=== PATIENT | male | born 1955 | race Caucasian/White ===

== ENCOUNTER 2016-08-15 12:44 | Inpatient (IN) | payer SELFPAY ==
--- NOTE | 2016-08-15 13:39 | ER Document Report ---
ED Medical Screen (RME) - General Chief Complaint: Shortness Of Breath Stated Complaint: SHORTNESS OF BREATH, LEG PAIN Time Seen by Provider: 08/15/16 13:38 Mode of Arrival: Wheelchair Information source: Patient TRAVEL OUTSIDE OF THE U[place] IN LAST 30 DAYS: No - HPI Patient complains to provider of: BRAY, edema Notes: 08/15/16 13:39 This 61-year-old male who presents to the emergency room complaining of dyspnea on exertion with bilateral lower extremity swelling that is worsened over the past 3-4 weeks, he denies chest pain Past Medical History Renal/ Medical History: Denies: Hx Peritoneal Dialysis Physical Exam - Vital signs Vitals: Temp Pulse Resp BP Pulse Ox 97.8 F 56 L 30 H 164/99 H 97 08/15/16 13:36 08/15/16 13:36 08/15/16 13:36 08/15/16 13:36 08/15/16 13:36 Course - Vital Signs Vital signs: Temp Pulse Resp BP Pulse Ox 97.8 F 56 L 30 H 164/99 H 97 08/15/16 13:36 08/15/16 13:36 08/15/16 13:36 08/15/16 13:36 08/15/16 13:36
[2016-08-15 15:01] LABS: ABSOLUTE BASOPHILS # (AUTO) 0.2 10^3/uL (0.0-0.2); ABSOLUTE EOSINOPHILS # (AUTO) 0.4 10^3/uL (0.0-0.6); ABSOLUTE LYMPHOCYTES (AUTO) 2.4 10^3/uL (0.5-4.7); ABSOLUTE MONOCYTES (AUTO) 1.4 10^3/uL (0.1-1.4); ABSOLUTE NEUT (AUTO) 10.1 10^3/uL (1.7-8.2); BASOPHILS % (AUTO) 1.3 % (0-2); EOSINOPHILS % (AUTO) 2.8 % (0-6); HEMATOCRIT 42.8 % (37.9-51.0); HEMOGLOBIN 14.2 g/dL (13.5-17.0); HGB HCT DIFFERENCE -0.2; LYMPHOCYTES % (AUTO) 16.8 % (13-45); MEAN CORPUSCULAR HGB CONC 33.1 g/dL (32.0-36.0); MEAN CORPUSCULAR VOLUME 85 fl (80-97); MONOCYTES % (AUTO) 9.8 % (3-13); RED BLOOD COUNT 5.05 10^6/uL (4.35-5.55); RED CELL DISTRIBUTION WIDTH 15.3 % (11.5-14.0); SEGMENTED NEUTROPHILS % (AUTO) 69.3 % (42-78); WHITE BLOOD COUNT 14.6 10^3/uL (4.0-10.5)
--- NOTE | 2016-08-15 15:13 | RADIOLOGY REPORT (SQ) ---
EXAM DESCRIPTION: CHEST PA/LAT COMPLETED DATE/TIME: 08/15/2016 3:00 pm REASON FOR STUDY: BRAY COMPARISON: None. EXAM PARAMETERS: NUMBER OF VIEWS: two views TECHNIQUE: Digital Frontal and Lateral radiographic views of the chest acquired. RADIATION DOSE: NA LIMITATIONS: none FINDINGS: LUNGS AND PLEURA: No opacities, masses or pneumothorax. No pleural effusion. MEDIASTINUM AND HILAR STRUCTURES: No masses or contour abnormalities. HEART AND VASCULAR STRUCTURES: Cardiomegaly with pulmonary vascular congestion. BONES: No acute findings. HARDWARE: None in the chest. OTHER: No other significant finding. IMPRESSION: Cardiomegaly with pulmonary vascular congestion but no mario CHF. TECHNICAL DOCUMENTATION: JOB ID: [id number] [employer]- All Rights Reserved
[2016-08-15 15:24] LABS: ALANINE AMINOTRANSFERASE 32 U/L (21-72); ALBUMIN 3.7 g/dL (3.5-5.0); ALKALINE PHOSPHATASE 93 U/L (38-126); ANION GAP 14 (5-19); ASPARTATE AMINO TRANSFERASE 28 U/L (17-59); BILIRUBIN,DIRECT 0.4 mg/dL (0.0-0.4); BILIRUBIN,TOTAL 0.9 mg/dL (0.2-1.3); BLOOD UREA NITROGEN 26 mg/dL (7-20); CARBON DIOXIDE 29 mmol/L (22-30); CHLORIDE 101 mmol/L (98-107); CREATINE KINASE 94 U/L (55-170); CREATININE RESULT 1.17 mg/dL (0.52-1.25); GLUCOSE 87 mg/dL (75-110); POTASSIUM 4.3 mmol/L (3.6-5.0); SODIUM 143.9 mmol/L (137-145); TOTAL PROTEIN 6.8 g/dL (6.3-8.2)
[2016-08-15 15:35] LABS: CREATINE KINASE MB 1.21 ng/mL (<4.55); TROPONIN I 0.052 ng/mL
[2016-08-15] MEDS ORDERED: FUROSEMIDE INJ/PF 20 MG/2 ML SDV IV ONE (16:12)
[2016-08-15] MEDS ORDERED: NITROGLYCERIN 2% OINTMENT 1 GM PACKET TP ONE (16:13)
--- NOTE | 2016-08-15 16:18 | ER Document Report ---
ED General - General Mode of Arrival: Wheelchair Information source: Patient TRAVEL OUTSIDE OF THE U.S[place] IN LAST 30 DAYS: No - HPI Patient complains to provider of: Shortness of Breath Onset: Other - 1 month ago Associated symptoms: Other - see notes above <ROXANNE OLMSTEAD - Last Filed: 08/15/16 20:15> <THUYMAGALI CARLOS - Last Filed: 08/15/16 23:20> - General Chief Complaint: Shortness Of Breath Stated Complaint: SHORTNESS OF BREATH, LEG PAIN Time Seen by Provider: 08/15/16 13:38 Notes: 51-year-old male with history of atrial fibrillation, gout, bilateral lower extremity edema, and hypertension presents to the ED complaining of shortness of breath and cough which is exacerbated when laying down it has been present for the past 1 month. Patient is additionally complaining of bilateral lower extremity edema and chest congestion, but no chest pain. Patient reports that he has been having swelling issues for years now. Historically has been having problem with open blisters and seeping to the bilateral legs. 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 Patient is not on Xarelto stating that it is too expensive, so he takes low-dose aspirin. Patient is currently on losartan, torsemide, metoprolol, and amiodarone. Patient has a history of 2 ablations complaining that one lasted for 24 hours and another lasted for 1 week before his atrial fibrillation recurred. (ROXANNE OLMSTEAD) - Related Data Allergies/Adverse Reactions: No Known Allergies Allergy (Verified 08/15/16 16:00) Home Medications: Current Home Medications Amiodarone HCl [Cordarone 200 mg Tablet] 200 mg PO DAILY 08/15/16 [History] Colchicine [Colchicine 0.6 mg Tablet] 0.6 mg PO DAILY 08/15/16 [History] Fluoxetine HCl [Prozac] 40 mg PO DAILY 08/15/16 [History] Losartan Potassium [Cozaar 100 mg Tablet] 100 mg PO DAILY 08/15/16 [History] Metoprolol Succinate [Toprol Xl] 100 mg PO DAILY 08/15/16 [History] Rivaroxaban [Xarelto] 20 mg PO DAILY 08/15/16 [History] Tamsulosin HCl [Flomax 0.4 mg Cap.sr] 0.4 mg PO DAILY 08/15/16 [History] Torsemide 100 mg PO DAILY 08/15/16 [History] Past Medical History - General Information source: Patient - Social History Smoking Status: Unknown if Ever Smoked Chew tobacco use (# tins/day): No Frequency of alcohol use: None Drug Abuse: None Family History: Reviewed & Not Pertinent Patient has suicidal ideation: No Patient has homicidal ideation: No - Past Medical History Cardiac Medical History: Reports: Hx Atrial Fibrillation, Hx Congestive Heart Failure Pulmonary Medical History: Reports: Hx Pneumonia Renal/ Medical History: Denies: Hx Peritoneal Dialysis <ROXANNE OLMSTEAD - Last Filed: 08/15/16 20:15> Review of Systems - Review of Systems Constitutional: No symptoms reported EENT: No symptoms reported Cardiovascular: See HPI. denies: Chest pain - chest congestion Respiratory: See HPI, Cough, Short of breath Gastrointestinal: No symptoms reported Genitourinary: No symptoms reported Male Genitourinary: No symptoms reported Musculoskeletal: See HPI, Leg swelling - bilateral Skin: No symptoms reported Hematologic/Lymphatic: No symptoms reported Neurological/Psychological: No symptoms reported -: Yes All other systems reviewed and negative <ROXANNE OLMSTEAD - Last Filed: 08/15/16 20:15> Physical Exam - General General appearance: Alert In distress: None - HEENT Head: Normocephalic, Atraumatic Eyes: Normal Extraocular movements intact: Yes Pupils: PERRL - Respiratory Respiratory status: No: No respiratory distress - dyspnic Breath sounds: Other - crackles to the bilateral bases - Cardiovascular Rhythm: Regular Heart sounds: Normal auscultation - Abdominal Inspection: Normal Distension: No distension Tenderness: Nontender - Back Back: Normal - Extremities General upper extremity: Normal inspection, Normal ROM General lower extremity: Edema - 2+ pitting edema to the bilateral lower extremity, Normal ROM. No: Normal inspection - Neurological Neuro grossly intact: Yes Cognition: Normal Orientation: AAOx4 Robin Coma Scale Eye Opening: Spontaneous [place] Coma Scale Verbal: Oriented [place] Coma Scale Motor: Obeys Commands [place] Coma Scale Total: 15 Speech: Normal - Psychological Associated symptoms: Normal affect, Normal mood - Skin Skin Temperature: Warm Skin Moisture: Dry Skin Color: Normal <ROXANNE OLMSTEAD - Last Filed: 08/15/16 20:15> Course - Laboratory Result Diagrams: 08/15/16 14:35 08/15/16 14:35 - Consults Dr. Grover Time consulted: 16:13 <ROXANNE OLMSTEAD - Last Filed: 08/15/16 20:15> - Laboratory Result Diagrams: 08/15/16 14:35 08/15/16 14:35 <MAGALI DALEY - Last Filed: 08/15/16 23:20> - Re-evaluation Re-evalutation: 08/15/16 Patient is a 61-year-old male who comes in with difficulty breathing that has been increasing over the last few weeks. She has not seen a doctor in about a year and a half. Patient is a history of atrial fibrillation. Clinically, x- ray, and blood work is consistent with congestive heart failure. Patient will be given Lasix and nitroglycerin paste and admitted for further evaluation of his symptoms. Stable time of admission to the hospitalist service. (MAGALI DALEY) - Vital Signs Vital signs: Temp Pulse Resp BP Pulse Ox 98.5 F 63 18 138/90 H 94 08/15/16 18:50 08/15/16 20:00 08/15/16 17:13 08/15/16 18:50 08/15/16 18:50 - Laboratory Laboratory results interpreted by me: 08/15/16 08/15/16 08/15/16 14:35 14:35 14:35 WBC 14.6 H RDW 15.3 H Absolute Neutrophils 10.1 H BUN 26 H NT-Pro-B Natriuret Pep 4500 H - Consults Dr. Grover Reason for consultation: 08/15/16 16:13 Patient was discussed with Dr. Grover who agrees to admit the patient to telemetry for observation. (ROXANNE OLMSTEAD) Discharge <ROXANNE OLMSTEAD - Last Filed: 08/15/16 20:15> - Discharge Admitting Provider: Elliot Grover Unit Admitted: Telemetry <MAGALI DALEY - Last Filed: 08/15/16 23:20> - Discharge Clinical Impression: CHF exacerbation Qualifiers: Congestive heart failure type: unspecified congestive heart failure type Qualified Code(s): I50.9 - Heart failure, unspecified Dyspnea Qualifiers: Dyspnea type: dyspnea on exertion Qualified Code(s): R06.09 - Other forms of dyspnea Condition: Stable Disposition: ADMITTED INPATIENT Scribe Attestation: 08/15/16 23:20 I personally performed the services described in the documentation, reviewed and edited the documentation which was dictated to the scribe in my presence, and it accurately records my words and actions. (MAGALI DALEY) Scribe Documentation - Scribe Written by Scribe:: Kendra Medrano, 08/15/2016 1744 acting as scribe for :: Thuy <ROXANNE OLMSTEAD - Last Filed: 08/15/16 20:15>
[2016-08-15] MEDS ORDERED: GLUCAGON,HUMAN RECOMB 1 MG INJ IM PRN (17:11)
[2016-08-15] MEDS ORDERED: DEXTROSE 50%-WATER 25 GM/50 ML DISP.SYRIN IV PRN ×2 (17:11)
[2016-08-15] MEDS ORDERED: INSULIN LISPRO 100 UNIT/ML 3 ML VIAL SUBCUT PRN (17:11)
[2016-08-15] MEDS ORDERED: DEXTROSE 40% GEL 15 GM TUBE PO PRN ×2 (17:11)
[2016-08-15] MEDS ORDERED: BUMETANIDE INJ/PF 1 MG/4 ML SDV IV SCH (18:00)
[2016-08-15] MEDS ORDERED: BUMETANIDE INJ/PF 1 MG/4 ML SDV IV PRN (18:00)
[2016-08-15] MEDS ORDERED: POTASSIUM CHLORIDE 10 MEQ TABLET.SA PO ONE (18:00)
--- NOTE | 2016-08-15 18:52 | EKG REPORT ---
SEVERITY:- ABNORMAL ECG - ATRIAL FLUTTER, A-RATE 223 INCOMPLETE LEFT BUNDLE BRANCH BLOCK ST DEPRESSION, CONSIDER ISCHEMIA, INF LEADS : Confirmed by: Yun Jerez 15-Aug-2016 18:50:33
--- NOTE | 2016-08-15 19:34 | HISTORY AND PHYSICAL E ---
History and Physical NAME: JANICE LION : 1955 AGE: 61Y ADMITTED: 08/15/2016 ROOM: 535 PRIMARY CARE PROVIDER: Not established. Benefit Specialist: In [place]. CHIEF COMPLAINT: Shortness of breath and swelling. HISTORY OF PRESENT ILLNESS: The patient is a 61-year-old male with a past medical history of congestive heart failure with unknown ejection fraction and atrial fibrillation. The patient presented to the emergency department with a chief complaint of shortness of breath. According to the patient, he had had significant shortness of breath that had been ever increasing over the past month. The patient states that he was first diagnosed with congestive heart failure back in 2013 and was also found to have atrial fibrillation. The patient states that he was converted on 2 separate occasions that were not successful. The patient also underwent an ablation which was successful. Subsequently the patient has been managed with beta-florencia and amiodarone. The patient is uncertain of his EF. He also states that he has not had a heart catheterization, although it is to be noted the patient is a rather poor historian. The patient has also a prescription for ARB. According to the patient, he takes all his medications including his diuretic except for Xarelto which he was given for anticoagulation, but he does not take the Xarelto given the cost. The patient states that he has lost his insurance and since that time has not had any followup nor has he been able to take his anticoagulation. The patient states that his symptoms have been getting worse over quite a period of time; however, he is unable to see a provider given that he does not have any insurance and, thus, came to the emergency department. Upon presentation to the emergency department, the patient was found to be dyspneic with evidence of anasarca. The patient also had a mild white count. His BNP was 4500. Blood pressure was 164/99 but he was acutely tachypneic. The patient does admit to paroxysmal nocturnal dyspnea and a dry hacky cough. The patient denies any nausea, vomiting or diarrhea, dizziness, chest pain. He denies any heart palpitations despite of the chronic a-fib but does not voice any other concerns at this time. PAST MEDICAL HISTORY: 1. Chronic atrial fibrillation. 2. Congestive heart failure of uncertain etiology and uncertain EF. The patient does deny knowledge of coronary artery disease. 3. Morbid obesity with BMI of 51. 4. Hypertension. PAST SURGICAL HISTORY: 1. Ablation. 2. Tonsillectomy. 3. Femur fracture repair. 4. Ventral wall hernia repair. ALLERGIES: No known drug allergies. HOME MEDICATIONS: 1. Amiodarone 200 mg p.o. daily. 2. Colchicine 0.06 mg p.o. daily. 3. Prozac 40 mg p.o. daily. 4. Cozaar 100 mg p.o. daily. 6. Xarelto 20 mg p.o. daily. 7. Flomax 0.4 mg p.o. daily. 8. Torsemide 100 mg p.o. daily. SOCIAL HISTORY: The patient currently resides at home. He has recently moved to the area from [place]. The patient denies any history of tobacco use, no history of alcohol or illicit drug use. FAMILY MEDICAL HISTORY: The patient's mother is . She from a CVA. The patient's father is also from emphysema. The patient does have a sister who is healthy. The patient also has a daughter who is healthy named Lc Badillo who is his surrogate decision maker. REVIEW OF SYSTEMS: CONSTITUTIONAL: The patient denies any fevers or chills, no loss of appetite. Positive for weakness. Denies any dizziness. INTEGUMENTARY: The patient denies any diaphoresis, rash or bruising. HEENT: Denies any vision or hearing loss, nasal drainage, sore throat, or headache. CARDIOVASCULAR: Denies any heart palpitations. Positive for chest pain and edema. RESPIRATORY: Denies any cough, sputum production or hemoptysis. GASTROINTESTINAL: Denies any nausea, vomiting, diarrhea, abdominal pain, bloating, hematemesis, constipation, melena or hematochezia. No epigastric pain. GENITOURINARY: Denies any hematuria, pyuria or dysuria. MUSCULOSKELETAL: The patient does have [id number] leg pain neuropathy. NEUROLOGIC: Denies any seizures, tremors or loss of consciousness. HEMATOLOGICAL: Denies any mario bleeding or easy bruising. ENDOCRINE: Denies any recent weight changes. PSYCHIATRIC: Denies suicidal or homicidal ideations. The rest of the review of the other organ systems is negative. PHYSICAL EXAMINATION: GENERAL: On examination, the patient is a well-developed, morbidly obese 61-year-old male who is awake, alert and oriented to person, place, time and situation. He is verbal and conversational and does not appear to be in any acute distress. VITAL SIGNS: Temperature 98.4, pulse 57, respirations 18, blood pressure 164/80, oxygen saturation is 92% on room air. SKIN: Warm and dry. No rash. He is not diaphoretic. HEENT: Pupils are equal, round, and reactive to light and accommodation. Conjunctivae are pink. The patient does have JVP to the level of the right ear. Sclerae are not icteric. There are no mouth lesions. Tongue is midline. NECK: Supple. No palpable lymphadenopathy or thyromegaly. CARDIOVASCULAR: Heart is irregularly irregular. There is no rub. CHEST: Diminished. Bilateral basal crackles are noted. Symmetrical, currently unlabored. ABDOMEN: Obese, soft, distended. No area of focal tenderness. Unable to palpate for organomegaly given the patient's body habitus but evident of third-space fluid. BACK: No CVA tenderness or sacral edema. EXTREMITIES: No clubbing or cyanosis. The patient does have evidence of chronic edema with +3 to 4 nonpitting edema consistent with anasarca. No peripheral signs of embolization. Faint pedal pulses noted bilaterally. PSYCHIATRIC: Appropriate affect. Pleasant mood. DIAGNOSTICS: Labs are as follows: Hematology obtained on 08/15/2016: WBC 14.6, hemoglobin 14.2, hematocrit 42.8, platelet count is 324,000. Chemistry obtained on 08/15/2016: Sodium 143, potassium 4.3, chloride 101, carbon dioxide 29, BUN 26, creatinine 1.17, glucose 87, calcium 5.4, calcium 9.0, bilirubin 9.0, AST 20, ALT 32, alkaline phosphatase 93, CK 94, CK-MB 1.21, troponin 0.025. BNP is 4500, total protein 6.8, albumin 3.7. EKG obtained on 08/15/2016 reveals a-flutter. Chest x-ray obtained on 08/15/2016 reveals cardiomegaly with pulmonary vascular congestion. IMPRESSION AND PLAN: 1. Acute congestive heart failure exacerbation. Unable to further clarify at this time, as there is no echocardiogram for comparison and unknown EF. Will obtain echocardiogram as well as will diurese the patient. Given his diuretic resistance, will start the patient on Bumex and replace potassium and follow. Will repeat chemistries in the a.m. Will utilize DENYS hose and monitor the patient's symptoms accordingly. 2. Chronic atrial fibrillation. Will resume the patient's home medications. Monitor for bradycardia. Will resume the patient's anticoagulation and follow. 3. Hypertension. The patient's blood pressures are elevated at this time. Will apply nitro paste for now and follow. 4. Leukocytosis. Relatively mild and may be secondary to #1. No evidence of overt infection. Will follow. 5. Benign prostatic hyperplasia. Will resume the patient's Flomax. 6. Depression. Will continue the patient's home medications. 7. DVT prophylaxis. The patient will be resumed on his Xarelto. DISPOSITION: The patient is a FULL CODE. Pending patient's symptomatology and diagnostic findings, will reevaluate in the a.m. Will admit the patient to inpatient telemetry, as the patient's expected length of stay will surpass 2 midnights. Time spent on this admission including assessment, plan, physical examination, patient education and family meetings is 40 minutes. DICTATING PHYSICIAN: KARLA SNYDER NP [id number] PHY#: [id number] ID: [id number] JOB#: [id number] ACCT: [id number] cc:AIDEN BARRY M.D., MICHAEL NP > MTDD
[2016-08-15] MEDS: ACETAMINOPHEN 325 MG TABLET PO PRN (23:05)
[2016-08-16] MEDS ORDERED: AMLODIPINE BESYLATE 10 MG TABLET PO ONE (00:30)
[2016-08-16 05:34] LABS: ANION GAP 13 (5-19); BLOOD UREA NITROGEN 23 mg/dL (7-20); CALCIUM 8.8 mg/dL (8.4-10.2); CARBON DIOXIDE 30 mmol/L (22-30); CHLORIDE 102 mmol/L (98-107); GLUCOSE 95 mg/dL (75-110); MAGNESIUM 2.3 mg/dL (1.6-2.3); POTASSIUM 3.6 mmol/L (3.6-5.0); SODIUM 144.6 mmol/L (137-145)
[2016-08-16] MEDS: BUMETANIDE INJ/PF 1 MG/4 ML SDV IV SCH ×3 (05:42→18:49)
[2016-08-16] MEDS ORDERED: BUMETANIDE INJ/PF 1 MG/4 ML SDV IV SCH (06:00)
[2016-08-16] MEDS: LOSARTAN POTASSIUM 50 MG TABLET PO SCH (10:49)
[2016-08-16] MEDS: FLUOXETINE HCL 20 MG CAPSULE PO SCH (10:49)
[2016-08-16] MEDS: AMIODARONE HCL 200 MG TABLET PO SCH (10:49)
[2016-08-16] MEDS: RIVAROXABAN 10 MG TABLET PO SCH (10:50)
[2016-08-16] MEDS: METOPROLOL SUCCINATE 50 MG TAB.SR.24H PO SCH (10:50)
[2016-08-16] MEDS: TAMSULOSIN HCL 0.4 MG CAP.SR.24H PO SCH (10:50)
[2016-08-16] MEDS: COLCHICINE 0.6 MG TABLET PO SCH (10:50)
--- NOTE | 2016-08-16 16:20 | XCELERA REPORT ---
[address] [address] Transthoracic Echocardiogram Report Name: JANICE LION Age: 61 yrs Gender: Male : 1955 Patient Status: Inpatient Patient Location: 5\S\535\S\A Study Date: 08/16/2016 09:47 AM Height: 71 in Weight: 363 lb BSA: 2.7 m2 Procedure: A two-dimensional transthoracic echocardiogram with color flow and Doppler was performed. The study was technically difficult with many images being suboptimal in quality. Reason For Study: Anasarca History: Anasarca. Ordering Physician: KARLA SNYDER Performed By: Hazel Martino Interpretation Summary There is mild concentric left ventricular hypertrophy. LV EF is 35% Left ventricular systolic function is moderate to severely reduced. There is moderate to severe global hypokinesis of the left ventricle. The left atrium is severely dilated. There is no evidence of mitral valve prolapse. There is no vegetation seen on the mitral valve. There is no mitral valve stenosis. There is a mild to moderate amount of mitral regurgitation There is no aortic valve stenosis There is no LVOT obstruction. There is a mild amount of aortic regurgitation There is a mild amount of tricuspid regurgitation Moderate to severe Pulmonary Hypertension.RVSP is 57 to 62 mm of Hg , with RA mean of 15 to 20. The aortic root is normal size. The inferior vena cava appeared dilated and decreased < 50% with respiration (RAP 15-20 mmHg) There is no pericardial effusion. MMode/2D Measurements \T\ Calculations RVDd: 3.7 cm LVIDd: 7.1 cm FS: 21.0 % Ao root diam: 3.2 cm IVSd: 1.3 cm LVIDs: 5.6 cm EDV(Teich): 266.6 ml LVPWd: 1.3 cm ESV(Teich): 155.9 ml Ao root area: 8.0 cm2 EF(Teich): 41.5 % Doppler Measurements \T\ Calculations MV E max sy: MV dec slope: Ao V2 max: AI max sy: 145.6 cm/sec 158.2 cm/sec 334.4 cm/sec MV A max sy: 1060 cm/sec2 Ao max PG: AI max P.6 cm/sec MV dec time: 10.0 mmHg 44.7 mmHg MV E/A: 2.1 0.14 sec AI dec slope: 130.2 cm/sec2 AI P1/2t: 752.0 msec LV V1 max PG: PA V2 max: TR max sy: 4.9 mmHg 104.6 cm/sec 323.3 cm/sec LV V1 max: PA max PG: TR max P.6 cm/sec 4.4 mmHg 41.8 mmHg Left Ventricle The left ventricle is moderately dilated. There is mild concentric left ventricular hypertrophy. LV EF is 35%. Left ventricular systolic function is moderate to severely reduced. There is moderate to severe global hypokinesis of the left ventricle. There is no thrombus. There is no ventricular septal defect visualized. Right Ventricle The right ventricle is mild to moderately dilated. The right ventricle appears to be hypertrophied. The right ventricular systolic function is moderately reduced. Atria The right atrium is moderately dilated. The left atrium is severely dilated. The interatrial septum is intact with no evidence for an atrial septal defect. Mitral Valve There is no evidence of mitral valve prolapse. There is no vegetation seen on the mitral valve. There is no mitral valve stenosis. There is a mild to moderate amount of mitral regurgitation. Aortic Valve There is no aortic valvular vegetation. There is no aortic valve stenosis. There is no LVOT obstruction. There is a mild amount of aortic regurgitation. Tricuspid Valve There is no tricuspid stenosis. There is a mild amount of tricuspid regurgitation. Moderate to severe Pulmonary Hypertension.RVSP is 57 to 62 mm of Hg , with RA mean of 15 to 20. Pulmonic Valve There is no pulmonic valvular stenosis. There is no pulmonic valvular regurgitation. Great Vessels The aortic root is normal size. The inferior vena cava appeared dilated and decreased < 50% with respiration (RAP 15-20 mmHg). Effusions There is no pericardial effusion. : KARLA SNYDER > Jany Mendez
--- NOTE | 2016-08-16 16:48 | PROGRESS NOTE E ---
Progress Note NAME: JANICE LION : 1955 AGE: 61Y DATE: 08/16/2016 ROOM: 535 SUBJECTIVE: The patient is lying in bed. It was a surprise to see him lying flat this morning. He said that he was able to tolerate this. It appears the patient has diuresed well; however, he is disappointed that he has not had more urine output than what he has. I explained to the patient it would take a while before he would see it in his extremities given the massive amount of volume that his up. The patient denies any nausea, vomiting, diarrhea. No dizziness, chest pain. No fevers, chills. The patient has been afebrile. Blood pressures have been mildly elevated but overall in decent ranges. The patient does not voice any other concerns at this time. REVIEW OF SYSTEMS: The rest of the review of systems is negative. MEDICATIONS: Medications have been reviewed. OBJECTIVE: GENERAL: The patient is a 61-year-old male who is awake, alert and oriented to person, place, time, and situation. He is verbal, conversational, ambulatory, does not appear to be in any acute distress. VITAL SIGNS: As follows: Temperature is 98.1, pulse 62, respirations 20, blood pressure 127/61, oxygen saturation 96% on room air. SKIN: Warm and dry. No rash. Not diaphoretic. HEENT: Pupils equal, round, reactive to light and accommodation. Conjunctiva is pink. NECK: No JVD. CARDIOVASCULAR SYSTEM: Heart is regular. There is no murmur or rub. CHEST: Diminished, symmetrical, unlabored. ABDOMEN: Firm. No area of focal tenderness. EXTREMITIES: The patient does have evidence of chronic edema which is non-pitting and appears to have anasarca. PSYCHIATRIC: Appropriate affect. Pleasant mood. DIAGNOSTICS: Lab values are as follows: Hematology obtained on 08/15/2016; WBCs are 14.6, hemoglobin is 14.2, hematocrit is 42.8, platelet count is 324,000. Chemistry obtained 08/16/2016: Sodium is 144, potassium, chloride is 102, carbon dioxide 30, BUN 23, creatinine is 1.10, glucose 95, calcium is 8.8, magnesium is 2.3. IMPRESSION AND PLAN: 1. ACUTE CONGESTIVE HEART FAILURE. Unable to further elaborate at this time given there is no echocardiogram available yet. This will be obtained today. Will continue current diuretic as the patient is quite diuretic resistant and replace potassium, repeat chemistries, utilize DENYS hose, and follow. 2. CHRONIC ATRIAL FIBRILLATION. Home medications have been resumed. Monitor for bradycardia. The patient will have also resumed his anticoagulation. 3. HYPERTENSION. Blood pressures are slightly elevated but will continue meds for now. 4. LEUKOCYTOSIS, RELATIVELY MILD. Most likely secondary to number 1. No evidence of overt infection. 5. BENIGN PROSTATIC HYPERPLASIA. Continue Flomax. 6. DEPRESSION. Will continue home medications. DISPOSITION: The patient is a FULL CODE. Pending patient's symptomatology, diagnostic findings, will re-evaluate in the a.m. Time spent on this followup including assessment, plan, physical examination, patient education is 25 minutes. DICTATING PHYSICIAN: KARLA SNYDER NP [id number] PHY#: [id number] ID: [id number] JOB#: [id number] ACCT: [id number] cc:KARLA SNYDER NP > MTDD
[2016-08-16] MEDS: POTASSIUM CHLORIDE 10 MEQ TABLET.SA PO SCH (21:06)
[2016-08-17] MEDS: BUMETANIDE INJ/PF 1 MG/4 ML SDV IV SCH ×2 (06:15→11:57)
[2016-08-17] MEDS: RIVAROXABAN 10 MG TABLET PO SCH (10:43)
[2016-08-17] MEDS: FLUOXETINE HCL 20 MG CAPSULE PO SCH (10:43)
[2016-08-17] MEDS: TAMSULOSIN HCL 0.4 MG CAP.SR.24H PO SCH (10:43)
[2016-08-17] MEDS: POTASSIUM CHLORIDE 10 MEQ TABLET.SA PO SCH (10:43)
[2016-08-17] MEDS: LOSARTAN POTASSIUM 50 MG TABLET PO SCH (10:43)
[2016-08-17] MEDS: COLCHICINE 0.6 MG TABLET PO SCH (10:43)
[2016-08-17] MEDS: METOPROLOL SUCCINATE 50 MG TAB.SR.24H PO SCH (10:45)
[2016-08-17] MEDS: AMIODARONE HCL 200 MG TABLET PO SCH (10:45)
[2016-08-17 12:23] LABS: ANION GAP 13 (5-19); BLOOD UREA NITROGEN 24 mg/dL (7-20); CALCIUM 9.1 mg/dL (8.4-10.2); CARBON DIOXIDE 31 mmol/L (22-30); CHLORIDE 100 mmol/L (98-107); CREATININE RESULT 1.23 mg/dL (0.52-1.25); GLUCOSE 86 mg/dL (75-110); MAGNESIUM 2.3 mg/dL (1.6-2.3); POTASSIUM 3.9 mmol/L (3.6-5.0); SODIUM 143.8 mmol/L (137-145)
[2016-08-17] MEDS ORDERED: SPIRONOLACTONE 25 MG TABLET PO ONE (14:00)
--- NOTE | 2016-08-17 17:19 | PROGRESS NOTE E ---
Progress Note NAME: JANICE LION : 1955 AGE: 61Y DATE: 08/17/2016 ROOM: 535 SUBJECTIVE: The patient is lying in bed. He states he feels a little better today. He has noticed improvement in his extremities and his breathing is much improved. The patient denies any nausea or vomiting, diarrhea, no dizziness, chest pain. Shortness of breath has improved. No fevers, chills. The patient has been afebrile. Blood pressures have been in a good range. The patient does not voice any other concerns at this time. REVIEW OF SYSTEMS: The rest of the review of systems is negative. MEDICATIONS: Medications have been reviewed. OBJECTIVE: GENERAL: The patient is a 61-year-old male who is awake, alert and oriented to person, place, time, and situation. He is verbal, conversational, ambulatory, does not appear to be in any acute distress. VITAL SIGNS: As follows: Temperature is 97.4, pulse 57, respirations 18, blood pressure 151/90, oxygen saturation 96% on room air. SKIN: Warm and dry. No rashes. Not diaphoretic. HEENT: Pupils equal, round, reactive to light and accommodation. Conjunctivae are pink. NECK: No JVP. CARDIOVASCULAR SYSTEM: Heart is irregularly irregular. There is no murmur or rub. CHEST: Diminished, symmetrical, unlabored. ABDOMEN: Firm, obese. No area of focal tenderness. EXTREMITIES: The patient now has some pitting edema about 2+ to 3+, no longer is as tight as it was yesterday. Some weeping is noted. DIAGNOSTICS: Lab values are as follows: Hematology obtained on 08/15/2016: WBCs are 14.6, hemoglobin is 14.2, hematocrit is 42.8, platelet count is 324,000. Chemistry obtained 08/17/2016: Sodium is 143, potassium is 3.9, chloride is 100, carbon dioxide 31, BUN 24, creatinine is 1.23, glucose 86, calcium is 9.1, magnesium is 2.3. IMPRESSION AND PLAN: 1. ACUTE EXACERBATION OF COMBINED SYSTOLIC AND DIASTOLIC CONGESTIVE HEART FAILURE. The patient has diuresed well with Bumex. He is quite diuretic resistant. Will continue to diurese but will decrease given the patient's bumped BUN and CO2 and follow. 2. CHRONIC ATRIAL FIBRILLATION. The patient is actually currently bradycardic. Will consult cardiology for input and hold beta-florencia, amiodarone, for now until seen by cardiology. 3. MORBID OBESITY WITH A BMI OF 50. Will encourage weight reduction. 4. HYPERTENSION. Blood pressures are much improved. 5. LEUKOCYTOSIS, RELATIVELY MILD. Will repeat CBC in the a.m. No overt evidence of infection. 6. BENIGN PROSTATIC HYPERPLASIA. Continue Flomax. 7. DEPRESSION. Will continue home medications. DISPOSITION: The patient is a FULL CODE. Pending patient's symptomatology, diagnostic findings, will reevaluate in the a.m. Time spent on this followup including assessment, plan, physical examination, patient education and specialty collaboration is 30 minutes. DICTATING PHYSICIAN: KARLA SNYDER NP [id number] PHY#: [id number] ID: [id number] JOB#: [id number] ACCT: [id number] cc: >
[2016-08-17] MEDS ORDERED: METOPROLOL SUCCINATE 25 MG TAB.SR.24H PO ONE (18:30)
[2016-08-17] MEDS: ACETAMINOPHEN 325 MG TABLET PO PRN (20:12)
--- NOTE | 2016-08-17 23:24 | CONSULTATION REPORT E ---
Consultation Report NAME: JANICE LION : 1955 AGE: 61Y DATE: 08/17/2016 ROOM: 535 A TO: MARGARITA PARRY M.D. FROM: AIDEN BARRY M.D. Requesting Physician REASON FOR CONSULTATION: Congestive heart failure and cardiomyopathy and chronic atrial fibrillation management. HISTORY OF PRESENT ILLNESS: The patient is a 61-year-old male, who is not a very good historian, with a past medical history of atrial fibrillation which appears to be chronic, history of congestive heart failure, prior ejection fraction unknown but echo by this admission shows LV ejection fraction of 35%. The patient states that since the past 3 years he has been having problems with congestive heart failure with intermittent episodes of leg edema and generalized body edema consistent with anasarca and PND, orthopnea. But no chest pains or palpitations. The patient since the past month has been having increasing dyspnea on exertion and finally got admitted because of rest shortness of breath with PND, orthopnea. He was found to be in congestive heart failure and also there was anasarca. He also seemed to be in atrial fibrillation. His BMI was 51, but today his BMI is 49.8 kg hence he has lost some fluid. The patient states at present he has no PND but he does have orthopnea and cannot lie flat except for a short time. He denies any palpitations. He has a history of atrial fibrillation. He states in the past he was cardioverted x2 and subsequently went back into atrial fibrillation. He has had 2 ablations in the past. The first ablation lasted, he says, for 24 hours and he went back into atrial fibrillation and the second ablation lasted for a week. Subsequently the patient was placed on amiodarone and then the patient continues to be in atrial fibrillation in spite of amiodarone. He denies any chest pain or discomfort. His EKG on admission showed atrial flutter/fibrillation. PAST MEDICAL HISTORY: Positive for history of hypertension. There is no history of coronary artery disease. He states that in 2014 he had a cardiac catheterization and was told he had normal coronary arteries. He has had episodic congestive heart failure and he states that he was not told that he had LV dysfunction in the past. He has a history of atrial fibrillation, as mentioned earlier he was cardioverted x2 with recurrence and subsequently had ablation x2 which failed and the patient is in chronic atrial fibrillation in spite of being on amiodarone. He denies any cough, fever, chills, or rigors. There is no history of asthma, COPD. The patient states he does have some symptoms of sleep apnea and he believes that he does have sleep apnea but he states that he has not had a sleep study. The patient has morbid obesity. He denies any history of KS or anginal symptoms. There is no history of diabetes mellitus, thyroid disease. There is no history of TIA, CVA. There is no history of anxiety or depression. He has had several episodes of congestive heart failure, as mentioned earlier. PAST SURGICAL HISTORY: Cardioversion x2, which were unsuccessful. Ablation of atrial fibrillation x2, which has been unsuccessful and also he has had a femur fracture repair and ventral wall hernia repair. He also as a child has had a left ankle fracture which was treated surgically. ALLERGIES: He has no known allergies. SOCIAL HISTORY: The patient denies any history of tobacco use. No history of alcohol or illicit drug use. FAMILY HISTORY: His father had emphysema. Mother had a CVA. There is no history of coronary artery disease. CODE STATUS: The patient is a full code. His daughter, Lc Badillo, is the surrogate healthcare decision maker. REVIEW OF SYSTEMS: CONSTITUTIONAL: The patient denies any fever, chills or rigors. Complains of generalized fatigue and weakness. HEAD: Denies headaches or head injury. There is no dizziness. EYES: No history of amblyopia or diplopia. No history of amaurosis fugax. EARS: No history of hearing loss. No history of tinnitus. No history of recurrent ear infections. NOSE: No history of hay fever. No history of nosebleeds. No history of nasal polyps. MOUTH: No history of altered taste sensation. No ulcers in the mouth. No history of bleeding from the gums. THROAT: No history of odynophagia or dysphagia. No history of recurrent sore throats. SKIN: No history of pruritus. No history of psoriasis. No history of yellowish discoloration of the skin. No history of skin cancer. No history of jaundice. NECK: No history of symptoms of C-spine arthritis. No history of goiter. No history of lymphadenopathy. LUNGS: No history of asthma or COPD. No history of wheezing. No history of pulmonary embolism. No history of hemoptysis. History of symptoms suggestive of sleep apnea, and the patient believes he has sleep apnea but he has not had a sleep study. CARDIAC: History of hypertension. History of episodic congestive heart failure since the last 3 years. The patient's echo yesterday showed LV dysfunction with an ejection fraction of 35%. He has no history of coronary artery disease. He states he had normal coronary arteries at catheterization in 2015. He has chronic atrial fibrillation. He denies any syncope. There are no palpitations. He has episodic leg edema and anasarca and episodic PND and orthopnea. Note the patient in the past was on Xarelto. He has not taken it for the past 3 months since he could not afford it due to cost. GASTROINTESTINAL: No history of GI bleed. No history of fatty food intolerance. No history of cirrhosis. No history of jaundice. No history of abdominal pain. No history of peptic ulcer disease or GERD symptoms. No history of altered bowel movements. MUSCULOSKELETAL: Denies arthritis or collagen vascular disease. RENAL: History of symptoms of an enlarged prostate controlled with medication. No history of chronic kidney disease. No symptom of UTI. No history of recurrent UTIs. No history of hematuria, pyuria, or dysuria. ENDOCRINE: No history of diabetes mellitus. No history of thyroid disease. No history of polydipsia or polyuria. No history of heat or cold intolerance. CENTRAL NERVOUS SYSTEM: No history of TIA or CVA. No history of headaches, migraines, or seizures. No history of gait imbalance. PSYCHIATRIC: No history of anxiety or depression. No history of suicidal or homicidal ideation. VASCULAR: No history of calf or buttock claudication. No history of DVT. HEMATOLOGICAL: No history of bleeding diathesis. No history of clotting disorders. No history of anemia. MEDICATIONS: 1. Tylenol 650 mg p.o. q.8 hours p.r.n. 2. Bumex 2 mg IV daily. 3. Colchicine 0.6 mg p.o. daily. 4. Prozac 40 mg p.o. daily. In spite of the patient telling me has no depression, the patient does have depression but this is controlled with Prozac. 5. Losartan 100 mg p.o. daily. 6. Metoprolol succinate 100 mg p.o. daily. 7. KCl 40 mEq p.o. b.i.d. 8. Xarelto 20 mg p.o. daily. 9. Flomax 0.4 mg p.o. daily. PHYSICAL EXAMINATION: GENERAL: The patient is morbidly obese but well-groomed, in no acute distress. VITAL SIGNS: He is afebrile with a temperature of 97.4 degrees Fahrenheit, his pulse is 115 beats per minute, blood pressure 115/90, respirations are 20 per minute, O2 saturations are 96% on room air. HEENT: Head is atraumatic, normocephalic. Eyes: Pupils are equal, round and regular, reactive to light and accommodation. Extraocular movements are normal. There is no conjunctival pallor. There is no scleral icterus. Ears: Tympanic membranes are intact, external auditory canals are clear. Nose: There is no deviated nasal septum, there is no inflammation of the nasal mucous membrane, there is no nasal polyposis. Mouth: Mucous membranes of the mouth are moist, tongue is moist. There are no ulcers in the mouth. There is no bleeding from the gums. Throat: There is no redness of the oropharynx, there are no exudates. SKIN: There are no skin rashes. There are no skin lesions. There is no petechiae or ecchymosis. NECK: Supple. There is no JVD. There is no lymphadenopathy. There is no goiter. Carotids are equal. There is no bruit. Trachea is central. LUNGS: At present are clear to auscultation and percussion. There is no chest wall tenderness. HEART: S1 and S2 is heard. S1 is of variable intensity. There is no S3 gallop. There is no S4 gallop. There is a systolic murmur in the left sternal border and the apex. There is no rub. ABDOMEN: Soft, obese, nontender. There is no hepatosplenomegaly. Bowel sounds are well heard. EXTREMITIES: Femorals are deep. Femorals are diminished. There is a trace pedal edema. There is no cyanosis or clubbing. There is no DVT or cellulitis. There is no calf tenderness. Leg pulses are diminished. Capillary refill is normal. CENTRAL NERVOUS SYSTEM: The patient is conscious, awake, alert and oriented x3 with no focal deficits. PSYCHIATRIC: The patient's judgment and insight are intact. His affect is normal. DIAGNOSTIC STUDIES: The patient's EKG on admission shows atrial flutter which is atypical, incomplete left bundle branch type of IVCD. His chest x-ray on admission shows cardiomegaly with a congestive heart failure. His echocardiogram done on 08/16/2016 shows there is mild concentric left ventricular hypertrophy, the left ventricular systolic function is moderate to severely reduced at 35%. There is moderate to severe global hypokinesis of the left ventricle. The left atrium is severely dilated. There is no evidence of mitral valve prolapse. There is no vegetation seen on the mitral valve. There is no mitral valve stenosis. There is mild to moderate amount of mitral regurgitation. There is no aortic valve stenosis. There is a mild amount of aortic regurgitation. There is mild amount of tricuspid regurgitation. There is moderate to severe pulmonary hypertension. Right ventricular systolic pressure is 57-62 mmHg with an RA mean of 15-20. The inferior vena cava appeared dilated and decreased less than 50% with respiration, hence, the right atrial pressure is 15-20. Note that the left ventricle is moderately dilated. There is no pericardial effusion. His laboratory data on 08/15/2016; his white count was 14,600; hemoglobin is 14.2; hematocrit is 42.8; platelet count is 324,000. The patient's sodium is 143.8, potassium 3.9, chloride 100, CO2 is 31, BUN is 24, creatinine 1.23, GFR is slightly reduced at 59 mL and his magnesium is 2.9, calcium 9.1, glucose is 86 and 83. His troponin I on 08/15/2016 was negative/*------* at 0.052. His CPK-MB was negative. His NT-proBNP is 4500. His liver function tests were normal. His GFR is within normal limits on 08/15 and 08/16, being greater than 60. IMPRESSION: 1. *------* failure. 2. Cardiomyopathy with an LV ejection fraction of 35%. 3. Hypertension. 4. Morbid obesity. 5. Symptoms suggestive of sleep apnea. RECOMMENDATIONS: Would recommend adding spironolactone, decreasing the patient's potassium to 40 mEq once a day, continue Bumex would switch to p.o. Lasix since the patient seems to be slightly overdiuresed with the renal function being up. Would stop the patient's amiodarone. Would check the patient's liver function test and thyroid function test. Would stop the amiodarone since the patient continues to be in atrial fibrillation and he is not in sinus rhythm. Note also this has been there for at least 3 years and hence the conversion to sinus rhythm is not highly probable. Note his 24 hour intake has been 1866 mL, output is 2100 mL. Would recommend a 30 event monitor to see if the patient needs further increase in his AV isaias blocking agents in view of the patient's amiodarone being stopped. Would recommend that the patient have a repeat echocardiogram in 3 months and if this clarified and if the stress test done either inpatient or outpatient is negative then would recommend that the patient be referred for AICD placement. All of the above discussed with the patient. And note, 40 minutes spent on the patient with more than 50% of the time spent on direct patient care. His medications were reviewed and adjusted and also discussed with the hospitalist taking care of the patient and coordination of care done. This case involves high and complex medical decision-making in view of the patient's cardiomyopathy, atrial fibrillation. Also would recommend that the patient have a sleep study as an outpatient. We will follow with you. The patient needs close cardiology followup. We will ask the patient as to whom he prefers to followup with. The 3 supervisor of guidance and testing with the hospital privileges and who practice in [place] has been discussed with the patient. The patient will decide and let me know. DICTATING PHYSICIAN: MARGARITA PARRY M.D. [id number] PHY#: [id number] ID: [id number] JOB#: [id number] ACCT: [id number] cc:MARGARITA PARRY M.D. >
[2016-08-18 04:35] LABS: HEMATOCRIT 39.8 % (37.9-51.0); HEMOGLOBIN 13.4 g/dL (13.5-17.0); HGB HCT DIFFERENCE 0.4; MEAN CORPUSCULAR HEMOGLOBIN 28.2 pg (27.0-33.4); MEAN CORPUSCULAR HGB CONC 33.7 g/dL (32.0-36.0); MEAN CORPUSCULAR VOLUME 84 fl (80-97); RED BLOOD COUNT 4.76 10^6/uL (4.35-5.55); RED CELL DISTRIBUTION WIDTH 15.1 % (11.5-14.0)
[2016-08-18 04:44] LABS: ALANINE AMINOTRANSFERASE 32 U/L (21-72); ALBUMIN 3.3 g/dL (3.5-5.0); ALKALINE PHOSPHATASE 86 U/L (38-126); ANION GAP 10 (5-19); ASPARTATE AMINO TRANSFERASE 19 U/L (17-59); BILIRUBIN,DIRECT 0.3 mg/dL (0.0-0.4); BLOOD UREA NITROGEN 25 mg/dL (7-20); CALCIUM 8.8 mg/dL (8.4-10.2); CARBON DIOXIDE 32 mmol/L (22-30); CHLORIDE 102 mmol/L (98-107); GLUCOSE 97 mg/dL (75-110); MAGNESIUM 2.3 mg/dL (1.6-2.3); SODIUM 143.6 mmol/L (137-145); TOTAL PROTEIN 6.1 g/dL (6.3-8.2)
[2016-08-18 04:58] LABS: FREE T3 3.85 pg/mL (2.77-5.27)
[2016-08-18] MEDS ORDERED: (PENDING PHARMACY ID) (Torsemide [Torsemide] 100 MG) PO SCH (10:00)
[2016-08-18] MEDS ORDERED: TORSEMIDE 20 MG TABLET PO SCH (10:00)
[2016-08-18] MEDS ORDERED: BUMETANIDE INJ/PF 1 MG/4 ML SDV IV SCH (10:00)
--- NOTE | 2016-08-18 10:15 | PROGRESS NOTE E ---
Progress Note NAME: JANICE LION : 1955 AGE: 61Y DATE: 08/18/2016 ROOM: 535 SUBJECTIVE: The patient is out of bed to the bedside chair. He states he feels about the same today as when he came in, although his shortness of breath has improved because he is able to complete sentences when he talks to me. The patient denies any nausea or vomiting. No diarrhea, dizziness, chest pain. The patient still complains of foot pain, especially on the right. Gout medication has been resumed with no improvement of symptoms. The patient has been seen by Cardiology and does not voice any other concerns at this time. REVIEW OF SYSTEMS: The rest of the review of systems is negative. MEDICATIONS: Medications have been reviewed. OBJECTIVE: GENERAL: The patient is a 61-year-old male who is awake, alert, and oriented to person, place, time, and situation. He is verbal, conversational, ambulatory. He does not appear to be in any acute distress. VITAL SIGNS: Temperature is 97.9, pulse 73, respirations 19, blood pressure 152/81, and oxygen saturation is 96% on room air. SKIN: Warm and dry. There is no rash and he is not diaphoretic. HEENT: Pupils are equal, round and reactive to light and accommodation. Conjunctivae pink. No JVP. CARDIOVASCULAR: Heart is regular, is no murmur or rub. CHEST: Clear, symmetrical, unlabored. ABDOMEN: Soft, nontender, nondistended. BACK: No CVA tenderness or sacral edema. EXTREMITIES: No clubbing, cyanosis. The patient does have +2 bilateral lower extremity pitting edema. PSYCHIATRIC: Appropriate affect, pleasant mood. DIAGNOSTICS: Lab values are as follows. Hematology obtained on 08/18/2016: WBCs are 15, hemoglobin 13.4, hematocrit 39.4, platelet count is 292,000. IMPRESSION AND PLAN: 1. ACUTE EXACERBATION OF COMBINED SYSTOLIC AND DIASTOLIC CONGESTIVE HEART FAILURE. There is a component of pulmonary hypertension, cor pulmonale. The patient diuresed well with Bumex, quite diuretic resistant. Will transition to oral torsemide today. Cardiology has added Aldactone. Have resumed home medications; therefore, hopefully there will be a significant improvement in symptoms. 2. CHRONIC ATRIAL FIBRILLATION. Amiodarone has been held. He is doing well on just Toprol XL. Will continue anticoagulation. Do appreciate Cardiology's input with resources. 3. MORBID OBESITY WITH BMI 50. Will encourage weight reduction. 4. HYPERTENSION. Blood pressures overall have improved. 5. LEUKOCYTOSIS. This was relatively mild and most likely due to exacerbation of CHF. 6. GOUT. The patient does have a history of gout. Had been off his colchicine. A little tender to the touch so there may be a component of a flare. Continue colchicine and also give a dose of steroids and follow. 7. BENIGN PROSTATIC HYPERPLASIA. Will continue Flomax. 8. DEPRESSION. Will continue home medications. DISPOSITION: THE PATIENT IS A FULL CODE. Pending the patient's symptomatology and diagnostic findings, will re-evaluate in the a.m. for discharge. Time spent on this followup, including assessment/plan, physical examination, patient education, and specialty collaboration, is 25 minutes. DICTATING PHYSICIAN: KARLA SNYDER NP [id number] PHY#: [id number] ID: [id number] JOB#: [id number] ACCT: [id number] cc: > MTDD
[2016-08-18] MEDS ORDERED: PREDNISONE 20 MG TABLET PO ONE (10:45)
[2016-08-18] MEDS: METOPROLOL SUCCINATE 50 MG TAB.SR.24H PO SCH (11:10)
[2016-08-18] MEDS: RIVAROXABAN 10 MG TABLET PO SCH (11:11)
[2016-08-18] MEDS: POTASSIUM CHLORIDE 10 MEQ TABLET.SA PO SCH (11:12)
[2016-08-18] MEDS: SPIRONOLACTONE 25 MG TABLET PO SCH (11:13)
[2016-08-18] MEDS: TAMSULOSIN HCL 0.4 MG CAP.SR.24H PO SCH (11:13)
[2016-08-18] MEDS: LOSARTAN POTASSIUM 50 MG TABLET PO SCH (11:13)
[2016-08-18] MEDS: TORSEMIDE 20 MG TABLET PO SCH (11:14)
[2016-08-18] MEDS: FLUOXETINE HCL 20 MG CAPSULE PO SCH (11:14)
[2016-08-18] MEDS: COLCHICINE 0.6 MG TABLET PO SCH (11:15)
--- NOTE | 2016-08-18 13:38 | PROGRESS NOTE E ---
Progress Note NAME: JANICE LION : 1955 AGE: 61Y DATE: 08/18/2016 ROOM: 535 SUBJECTIVE: The patient denies any chest pain or discomfort. There is no PND or orthopnea. He has got trace leg edema. There are no anginal symptoms. Patient continues to be in atrial fibrillation with controlled ventricular response. There are no TIA or CVA symptoms. There is no bleeding on Xarelto. The patient states that he would not be able to afford Xarelto. He states he has bilateral ankle pain. OBJECTIVE: GENERAL: On examination, the patient is morbidly obese, well groomed, in no acute distress. VITAL SIGNS: He is afebrile with a temperature of 97.6 degrees Fahrenheit, pulse is 71 beats per minute, blood pressure 146/80, respirations are 21 per minute, 02 saturations are 97% on 2 L nasal cannula. HEENT: Head is atraumatic, normocephalic. Eyes: Pupils are equal, round, regular and reactive to light and accommodation. Extraocular movements are normal. There is no conjunctival pallor. There is no scleral icterus. ENT is negative. NECK: Supple. There is no JVD. Carotids are equal. There is no bruit. There is no goiter. There is no lymphadenopathy. Trachea is central. LUNGS: There are no axillary muscle of respiration in use. Lungs are clear to auscultation and percussion. There is no chest wall tenderness. HEART: S1 and S2 are heard. There is no S3 gallop. There is no S4 gallop. S1 is of variable intensity. There is a systolic murmur in the left sternal border and the apex. There is no rub. ABDOMEN: Soft, nontender. There is no hepatosplenomegaly. Bowel sounds are well heard. There are no tender areas or masses. EXTREMITIES: Femorals are very much diminished. Femorals are deep. There are no femoral bruits. Leg pulses are slightly diminished. There trace pedal edema. There is no DVT or cellulitis. There is no calf tenderness. There is no clubbing or cyanosis. CENTRAL NERVOUS SYSTEM: The patient is conscious, awake, alert, and oriented x3 with no focal deficits. PSYCHIATRIC: The patient's judgment and insight are intact. His affect is normal. The patient's 24-hour intake is 2156 mL. Output is 3800 mL. DIAGNOSTICS: The patient's white count is 13,000; hemoglobin is 13.4; hematocrit is 39.8; and platelet count is 292,000. The patient's sodium is 143.6, potassium 4.0, chloride is 102, CO2 is 32. The patient's BUN is 25, creatinine is 1.20, GFR is greater than 60, glucose is 97. Liver function tests are normal. The patient's free T3 is 3.85. Free T4 is 1.82. His TSH is pending. IMPRESSION: 1. [id number] SYSTOLIC HEART FAILURE. 2. CARDIOMYOPATHY WITH LV EJECTION FRACTION OF 35%. 3. HYPERTENSION. 4. MORBID OBESITY. 5. SYMPTOMS SUGGESTIVE OF SLEEP APNEA. 6. CHRONIC ATRIAL FIBRILLATION, STATUS POST ABLATION AND CARDIOVERSION WITH FAILURE ON ALL OF THEM WITH THE PATIENT BACK IN ATRIAL FLUTTER/FIBRILLATION. At present patient is in atrial flutter. RECOMMENDATIONS: Would recommend stopping the patient's IV Bumex and start the patient on torsemide 100 mg p.o. daily. Continue the patient's spironolactone. Would continue the patient on Xarelto. We will see if there is a cheaper alternative to Xarelto versus Coumadin. This has been discussed with the patient. Continue metoprolol, Toprol XL, 100 mg p.o. daily and continue Prozac. Continue colchicine. Continue Flomax. Note as an outpatient, would recommend that the patient have an IV Lexiscan Cardiolite stress test. Note if the patient is stable, we will discharge the patient and follow the patient in outpatient. The patient desires to followup with me. Note, this is a moderate to high complexity involved in this case in medical decision making. I note 30 minutes spent on the patient with more than 50% of time spent on direct patient care. His medications have been reviewed and medications changes have been discussed with the attending physician on the case. We will follow with you. DICTATING PHYSICIAN: MARGARITA PARRY M.D. [id number] PHY#: [id number] ID: [id number] JOB#: [id number] ACCT: [id number] cc: >
[2016-08-19 07:15] LABS: ANION GAP 12 (5-19); BLOOD UREA NITROGEN 29 mg/dL (7-20); CALCIUM 8.9 mg/dL (8.4-10.2); CARBON DIOXIDE 28 mmol/L (22-30); CHLORIDE 104 mmol/L (98-107); CREATININE RESULT 1.19 mg/dL (0.52-1.25); GLUCOSE 94 mg/dL (75-110); MAGNESIUM 2.4 mg/dL (1.6-2.3); POTASSIUM 3.9 mmol/L (3.6-5.0); SODIUM 143.9 mmol/L (137-145)
[2016-08-19] MEDS ORDERED: RIVAROXABAN 10 MG TABLET PO SCH (08:00)
[2016-08-19] MEDS: POTASSIUM CHLORIDE 10 MEQ TABLET.SA PO SCH (09:48)
[2016-08-19] MEDS: METOPROLOL SUCCINATE 50 MG TAB.SR.24H PO SCH (09:49)
[2016-08-19] MEDS: TORSEMIDE 20 MG TABLET PO SCH (09:50)
[2016-08-19] MEDS: TAMSULOSIN HCL 0.4 MG CAP.SR.24H PO SCH (09:50)
[2016-08-19] MEDS: SPIRONOLACTONE 25 MG TABLET PO SCH (09:50)
[2016-08-19] MEDS: COLCHICINE 0.6 MG TABLET PO SCH (09:50)
[2016-08-19] MEDS: FLUOXETINE HCL 20 MG CAPSULE PO SCH (09:51)
[2016-08-19] MEDS: LOSARTAN POTASSIUM 50 MG TABLET PO SCH (09:51)
[2016-08-19 14:56] VITALS: BP 140/88
--- NOTE | 2016-08-19 16:33 | DISCHARGE SUMMARY E ---
Discharge Summary NAME: JANICE LION : 1955 AGE: 61Y ADMITTED: 08/15/2016 DISCHARGED: 08/19/2016 CODE STATUS: FULL CODE. CONSULTING [employer]ANQU[employer] FOOD SERVER: Dr. Mendez PRIMARY CARE PROVIDER: The patient will be referred to the [facility]. DISCHARGE DIAGNOSES: 1. [id number] systolic and diastolic congestive heart failure. 2. Moderate to severe pulmonary hypertension. 3. Cor pulmonale. 4. Chronic atrial fibrillation. 5. Morbid obesity. 6. Hypertension. 7. Gouty flare. 8. Benign prostatic hyperplasia. 9. Depression. DISCHARGE MEDICATIONS: All of these were refilled and includes: 1. Colchicine 0.6 mg p.o. daily. 2. Prozac 40 mg p.o. daily. 3. Cozaar 100 mg p.o. daily. 4. Toprol XL 100 mg p.o. daily. 5. Potassium chloride 20 mEq p.o. daily. 6. Prednisone 60 mg taper. 7. Xarelto 20 mg p.o. daily. 8. Aldactone 25 mg p.o. daily. 9. Flomax 0.4 mg p.o. daily. 10. Torsemide 100 mg p.o. daily. DIET: Heart healthy, liter and a half fluid restriction. ACTIVITY: As tolerated. HISTORY OF PRESENT ILLNESS: The patient is a 61-year-old male with a past medical history of known heart failure. The patient presented to the emergency department with a chief complaint of shortness of breath and swelling. The patient complained of shortness of breath which has been ever increasing over the past month. The patient stated that he had first been diagnosed with CHF back in 2013 and was found to have atrial fibrillation as well. The patient stated on 2 separate occasions he had been cardioverted which were unsuccessful and subsequently underwent an ablation which was also unremarkable. The patient stated that his heart rate was controlled with a beta florencia as well as amiodarone. The patient denies any history of heart catheterization; however, the patient is noted to be a poor historian. The patient states that he normally takes his medications except for Xarelto which was noted to be expensive. The patient states that his health has been decreasing ever since he lost his insurance and relocated to the area. Upon presentation in the emergency department, the patient was found to have anasarca. His BNP was 4500. Blood pressure 164/99. The patient was acutely tachypneic and referred to the hospitalist for admission and management. HOSPITAL COURSE: The patient was admitted to continuous telemetry unit. The patient was aggressively diuresed with Bumex given his diuretic resistance. Potassium was replaced. The patient had a significant amount of urine output and symptoms did improve although not resolved. The patient did complain of significant pain of his left foot, however, he is noted to have gout. This responded well to resuming colchicine as well as steroids. The patient was noted to have chronic atrial fibrillation as well as CHF. The patient's echocardiogram revealed an EF of 35%, therefore, Dr. Mendez with cardiology was consulted and recommendations have been made. The patient is to followup with Cardiology upon discharge. The patient is ready for discharge. DIAGNOSTICS: Lab values are as follows: Hematology obtained on 08/18/2016: WBCs are 13.0, hemoglobin 13.4, hematocrit 39.8, platelet count is 292,000. Chemistry obtained on 08/19/2016: Sodium is 143, potassium 3.9, chloride is 104, carbon dioxide 28, BUN 29, creatinine 1.19, glucose 94, calcium is 8.9, magnesium is 2.4. PHYSICAL EXAMINATION: GENERAL: On examination, the patient is a well-developed, morbidly obese, 61-year-old male who is awake, alert, and oriented to person, place, time, and situation. He is verbal, conversational, ambulatory, and does not appear to be in acute distress. VITAL SIGNS: Temperature is 97.9, pulse 57, respirations 20, blood pressure 143/76, oxygen saturation is 95% on room air. SKIN: Warm and dry. No rash. Not diaphoretic. HEENT: Pupils equal, round, reactive to light and accommodation. Conjunctivae are pink. No JVP. CARDIOVASCULAR: Heart is irregularly irregular with no murmur. CHEST: Clear, symmetrical, unlabored. ABDOMEN: Obese, firm. Bowel sounds are present. EXTREMITIES: No clubbing or cyanosis. The patient does have 2+ bilateral lower extremity edema which overall is much improved. PSYCHIATRIC: Appropriate affect. Pleasant mood. DISCHARGE PLANNIN. The patient is advised to followup with [facility] in 1-2 weeks for hospital followup. 2. The patient is to followup with Dr. Mendez within 1-2 weeks for hospital followup. Patient would also benefit from an event monitor. Time spent on this discharge including assessment, plan, physical examination, patient education, and speciality collaboration as well as review of records and resource alignment is 30 minutes. DICTATING PHYSICIAN: KARLA SNYDER NP [id number] PHY#: [id number] ID: [id number] JOB#: [id number] ACCT: [id number] cc:AIDEN BARRY M.D., MICHAEL NP >
== END 2016-08-19 15:41 | disposition home or self-care (01) | DRG 292 ==
LOC: ER 12:44 → 5 16:15 → EH 16:33 → UNDOADMIN 16:33 → EH 18:37 → 5 18:37
PROVIDERS: ADMIT Family Medicine; ATTEND Family Medicine
DX: I50.43 Acute on chronic combined systolic (congestive) and diastolic (congestive) heart failure (principal); I42.9 Cardiomyopathy, unspecified; Z68.43 Body mass index [BMI] 50.0-59.9, adult; I27.2 Other secondary pulmonary hypertension; I48.2 Chronic atrial fibrillation; E66.01 Morbid (severe) obesity due to excess calories; M10.9 Gout, unspecified; N40.0 Benign prostatic hyperplasia without lower urinary tract symptoms; F32.9 Major depressive disorder, single episode, unspecified; Z79.02 Long term (current) use of antithrombotics/antiplatelets; Z79.899 Other long term (current) drug therapy
CPT/HCPCS: 36415; 71020; 80048; 80053; 80076; 82550; 82553; 82962; 83036; 83519; 83735; 83880; 84439; 84481; 84484; 85025; 85027; 93005; 93010; 93306; 96374; 99285; J1940; J3490; J7512

== ENCOUNTER → 2016-09-23 | Outpatient (CLI) | payer OTHER ==
[2016-09-23 12:04] LABS: ANION GAP 11 (5-19); BLOOD UREA NITROGEN 21 mg/dL (7-20); CALCIUM 9.1 mg/dL (8.4-10.2); CARBON DIOXIDE 29 mmol/L (22-30); CHLORIDE 104 mmol/L (98-107); GLUCOSE 85 mg/dL (75-110); POTASSIUM 4.6 mmol/L (3.6-5.0); SODIUM 144.3 mmol/L (137-145); URIC ACID 10.9 mg/dL (3.5-8.5)
[2016-09-24 05:40] LABS: HEPATITIS C VIRUS AB <0.1 s/co ratio (0.0-0.9)
== END ==
LOC: CCC 10:42
DX: I50.9 Heart failure, unspecified (principal); M10.9 Gout, unspecified
CPT/HCPCS: 36415; 80048; 84550; 86803; 86804

== ENCOUNTER 2017-03-28 02:28 | Emergency (ER) | payer SELFPAY ==
--- NOTE | 2017-03-28 03:47 | ER Document Report ---
ED Medical Screen (RME) - General Chief Complaint: Back Pain Stated Complaint: RIGHT SIDE BACK PAIN Time Seen by Provider: 03/28/17 03:45 Mode of Arrival: Wheelchair Information source: Patient Notes: 61-year-old male presents to ED for complaint of right flank pain since Monday. He states he had some blood in his stool 3 or 4 days ago but none today. He states his pain right now is a 3 out of 5 but is been as high as a 5 out of 5. He states he has a history of kidney stones CHF A. fib high blood pressure cholesterol pneumonia plan prostate hyperplasia depression and a fractured leg. He has had a inguinal hernia repair left leg ORIF and a cardiac ablation. Denies smoking drinking or abusing any drugs. I have greeted and performed a rapid initial assessment of this patient. A comprehensive ED assessment and evaluation of the patient, analysis of test results and completion of medical decision making process will be conducted by an additional ED providers. TRAVEL OUTSIDE OF THE [place] IN LAST 30 DAYS: No - Related Data Allergies/Adverse Reactions: No Known Allergies Allergy (Verified 08/15/16 16:00) Past Medical History - Past Medical History Cardiac Medical History: Reports: Hx Atrial Fibrillation, Hx Congestive Heart Failure Pulmonary Medical History: Reports: Hx Pneumonia Renal/ Medical History: Denies: Hx Peritoneal Dialysis
[2017-03-28 04:34] LABS: APPEARANCE,URINE CLEAR; BILIRUBIN,URINE NEGATIVE (NEGATIVE); COLOR,URINE YELLOW; GLUCOSE, URINE NEGATIVE (NEGATIVE); KETONES,URINE NEGATIVE (NEGATIVE); LEUKOCYTE ESTERASE,URINE NEGATIVE (NEGATIVE); NITRITE,URINE NEGATIVE (NEGATIVE); PROTEIN,URINE NEGATIVE (NEGATIVE); URINE SPECIFIC GRAVITY 1.019; UROBILINOGEN,URINE NEGATIVE mg/dL (<2.0)
--- NOTE | 2017-03-28 04:36 | RADIOLOGY REPORT (SQ) ---
EXAM DESCRIPTION: CT ABDOMEN AND PELVIS WITHOUT CONTRAST CLINICAL HISTORY: right flank pain COMPARISON: None Available. TECHNIQUE: CT of the abdomen and pelvis without IV contrast. FINDINGS: Abdomen: The liver has normal size and density. No calcified gallstones. The spleen, pancreas, and adrenal glands are unremarkable. The kidneys have normal size and contour without evidence of hydronephrosis. No obstructing ureteral calculi. Aortoiliac atherosclerosis. IVC is unremarkable. No free intraperitoneal air. The stomach and duodenum have normal course. Pelvis: Bilateral fat-containing inguinal hernias. Prostate is not enlarged. Urinary bladder is unremarkable. No free pelvic fluid or lymphadenopathy. No dilated loops of large or small bowel. Normal appendix. The visualized lung bases are clear. No destructive bone lesions identified. Minimal degenerative spondylosis of the visualized thoracic and lumbar spine. DLP: 1653.22 mGy-cm IMPRESSION: 1. No acute inflammatory or obstructive abnormality identified. This exam was performed according to our departmental dose-optimization program, which includes automated exposure control, adjustment of the mA and/or kV according to patient size and/or use of iterative reconstruction technique.
[2017-03-28] MEDS ORDERED: CYCLOBENZAPRINE HCL 10 MG TABLET PO ONE (05:17)
[2017-03-28] MEDS ORDERED: DEXAMETHASONE SOD PHOS INJ 10 MG/1 ML VIAL IM ONE (05:17)
[2017-03-28] MEDS ORDERED: KETOROLAC TROMETHAMINE 60 MG/2 ML SDV IM ONE ×2 (05:17→05:28)
--- NOTE | 2017-03-28 05:20 | ER Document Report ---
ED Neck/Back Problem - General Chief Complaint: Back Pain Stated Complaint: RIGHT SIDE BACK PAIN Time Seen by Provider: 03/28/17 03:45 Mode of Arrival: Wheelchair Information source: Patient Notes: 60-year-old male presents to ED for complaint of right flank and back pain since Monday. He states he has not had any pain or problems with his urination. Denies any blood in his urine. States his pain is actually a little better when he sits up sit on the side of the bed. States she has a history of a kidney stone in the past also has a history of CHF, A. fib, high blood pressure, high cholesterol, pneumonia, benign prostate hyperplasia, depression, and a fractured leg. He states he has had inguinal hernia repair in the past and multiple cardiac ablations. TRAVEL OUTSIDE OF THE [place] IN LAST 30 DAYS: No - HPI Patient complains to provider of: Pain, Lower back Onset: Other - Monday Onset: Gradual Timing: Still present, Better Quality of pain: Sharp Severity: Moderate Pain Level: 3 Recent injury: No Associated symptoms: Lower back pain - Right lower back flank area pain. denies : Constipation, Fever, Incontinence, Radiation to arm, Radiation to chest, Radiation to leg, Sensory loss, Sweaty, Unable to urinate Exacerbated by: Movement of trunk Relieved by: Other - Sitting upright on the side of the bed Similar symptoms previously: Yes Recently seen / treated by doctor: No - Related Data Allergies/Adverse Reactions: No Known Allergies Allergy (Verified 08/15/16 16:00) Past Medical History - General Information source: Patient - Social History Smoking Status: Never Smoker Cigarette use (# per day): No Chew tobacco use (# tins/day): No Smoking Education Provided: No Frequency of alcohol use: Rare Drug Abuse: None Lives with: Alone Family History: Reviewed & Not Pertinent Patient has suicidal ideation: No Patient has homicidal ideation: No - Past Medical History Cardiac Medical History: Reports: Hx Atrial Fibrillation, Hx Congestive Heart Failure Pulmonary Medical History: Reports: Hx Pneumonia EENT Medical History: Reports: None Neurological Medical History: Reports: None Endocrine Medical History: Reports: None Renal/ Medical History: Reports: Hx Benign Prostatic Hyperplasia, Hx Kidney Stones Malignancy Medical History: Reports None GI Medical History: Reports: None Musculoskeltal Medical History: Reports Hx Arthritis, Reports Hx Musculoskeletal Trauma Skin Medical History: Reports None Psychiatric Medical History: Reports: Hx Depression Traumatic Medical History: Reports: Hx Fractures Infectious Medical History: Reports: None Past Surgical History: Reports: Hx Inguinal Hernia, Hx Orthopedic Surgery - ORIF left leg, Other - Multiple cardiac ablations Review of Systems - Review of Systems Constitutional: No symptoms reported EENT: No symptoms reported Cardiovascular: No symptoms reported Respiratory: No symptoms reported Gastrointestinal: No symptoms reported Genitourinary: No symptoms reported Male Genitourinary: No symptoms reported Musculoskeletal: Back pain - Right flank to lower back area, no vertebral tenderness, no abdominal tenderness, Muscle pain, Muscle stiffness Skin: No symptoms reported Hematologic/Lymphatic: No symptoms reported Neurological/Psychological: Other - This is hard for him to walk due to the pain in his flank. denies: Loss of power, Headaches -: Yes All other systems reviewed and negative Physical Exam - Vital signs Vitals: Temp Pulse Resp BP Pulse Ox 97.5 F 96 20 149/101 H 98 03/28/17 02:38 03/28/17 02:38 03/28/17 02:38 03/28/17 02:38 03/28/17 02:38 Interpretation: Normal - General General appearance: Appears well, Alert - HEENT Head: Normocephalic, Atraumatic Eyes: Normal Pupils: PERRL - Respiratory Respiratory status: No respiratory distress Chest status: Nontender Breath sounds: Normal Chest palpation: Normal - Cardiovascular Rhythm: Regular Heart sounds: Normal auscultation Murmur: No - Abdominal Inspection: Normal Distension: No distension Bowel sounds: Normal Tenderness: Nontender Organomegaly: No organomegaly - Back Back: Normal, Tender - Right lower back objective right flank area no abdominal tenderness no vertebral tenderness, CVA tenderness, Scars, Scoliosis. No: Deformity/step-off, Vertebra tenderness, Wounds - Extremities General upper extremity: Normal inspection, Nontender, Normal color, Normal ROM , Normal temperature General lower extremity: Normal inspection, Nontender, Normal color, Normal ROM , Normal temperature, Normal weight bearing. No: Barron's sign - Neurological Neuro grossly intact: Yes Cognition: Normal Orientation: AAOx4 Robin Coma Scale Eye Opening: Spontaneous Robin Coma Scale Verbal: Oriented [place] Coma Scale Motor: Obeys Commands Robin Coma Scale Total: 15 Speech: Normal Motor strength normal: LUE, RUE, LLE, RLE Sensory: Normal - Psychological Associated symptoms: Normal affect, Normal mood - Skin Skin Temperature: Warm Skin Moisture: Dry Skin Color: Normal Course - Re-evaluation Re-evalutation: 03/28/17 05:54 X-ray discussed with patient and written report given to patient to follow-up with his primary doctor. Patient was treated with Toradol Decadron and muscle relaxer Flexeril. Patient was given a prescription for Flexeril. Patient was instructed to follow-up with his primary doctor. - Vital Signs Vital signs: Temp Pulse Resp BP Pulse Ox 98.8 F 94 20 141/62 H 95 03/28/17 05:49 03/28/17 05:49 03/28/17 05:49 03/28/17 05:49 03/28/17 05:49 - Diagnostic Test Radiology reviewed: Image reviewed, Reports reviewed Discharge - Discharge Clinical Impression: Right lumbar pain Qualifiers: Chronicity: acute Sciatica presence: without sciatica Qualified Code(s): M54.5 - Low back pain Condition: Stable Disposition: HOME, SELF-CARE Additional Instructions: LOW BACK PAIN: Three out of every four people will have an episode of disabling back pain during their lifetime. Most commonly the pain is due to straining of the muscles and ligaments in the low back. Usual treatment includes: (1) Rest on a firm surface. Avoid lying on your stomach. (2) Ice pack the painful area. After a few days, gentle heat may be used intermittently to relax the area, or ice packs can be continued. (3) Medication may be needed -- muscle relaxers and antiinflammatory medicines are commonly used. (4) As the back improves, exercises are prescribed to strengthen the back and abdominal muscles. Your doctor will advise you on the proper care for your back at each stage in your recovery. You may be better in a few days -- or healing may take several weeks. If new symptoms of a "herniated disc" (radiation of pain, numbness, or tingling down the back of the leg or weakness in the leg) occur, you should be re-examined. Further testing may be necessary. Toradol Injection You have been given an injection of ketorolac tromethamine (Toradol). This is an excellent, safe drug for pain control. It also has potent antiinflammatory action. You should have significant pain relief within about one hour. Toradol is not addicting and is non-sedating. It does not interfere with driving or work. Call or return if you develop itching, hives, shortness of breath, or rash. STEROID MEDICATION: You have been given an injection of medicine of the cortisone/steroid class. This medication is used to control inflammation or allergy. It is often continued as a pill for a short period of time, until the acute process subsides. There are usually no side effects from short-term use of cortisone-like medications. Some persons feel an increased sense of well-being and are not sleepy at bedtime. Long-term use of cortisone medications is best avoided, unless required for a severe condition. If your condition does not remit, or relapses after the course of corticosteroid medication, you should consult your physician. Stretching Exercises for the Back The physician has recommended that you begin stretching exercises for your back. These are often used even while the back is painful. However, you should notify the physician if the activities seem to increase your pain. PELVIC TILT: Lie flat on your back with knees bent. Tighten your stomach and buttock muscles so it flattens your lower back against the floor. Hold 10 seconds. Repeat 10 times, twice daily. KNEE RAISE: Lying on the back with knees bent, raise one knee to your chest, then the other. Hold both knees against the chest 10 seconds, then lower one knee at a time. Repeat 10 times, twice daily. PARTIAL TRUNK RAISE: Lie face down, arms at your sides. Keeping your waist on the floor, use your arms raise your chest up. Support yourself on your elbows for 30 seconds. Repeat twice daily, increasing the time to two minutes as you recover. MUSCLE RELAXERS: Muscle relaxing medications are usually prescribed for acute muscle spasm or injury to the neck and back. They are often combined with antiinflammatory pain medication for increased relief. You may stop the muscle relaxer when the pain and stiffness have improved. Start the medication again if spasms recur. Muscle relaxers may cause drowsiness, especially with the first dose. Do not operate machinery or drive while under the effects of the medication. Most muscle relaxers last up to 24 hours. Do not combine the medication with alcohol. ICE PACKS: Apply ice packs frequently against the painful area. Many different schedules are recommended, such as "20 minutes on, 20 minutes off" or "one hour ice, two hours rest." If you need to work, you may need to go longer between ice treatments. You should plan to have the area ice packed AT LEAST one fourth of the time. The ice should be applied over the wrap, tape, or splint, or over a layer of cloth -- not directly against the skin. Some ice bags have a built-in cloth and can be put directly on the skin. WARM PACKS: After approximately two days, apply gentle heat (such as a heating pad or hot water bottle) for about 20 to 30 minutes about every two hours -- at least four times daily. Warmth and elevation will help you make a more rapid recovery , and will ease the pain considerably. Do not use HOT heat, and never apply heat for longer than 30 minutes. The continuous heat can invisibly damage skin and muscles -- even when no burn is seen on the surface. Damaged muscles can make you MORE sore. FOLLOW-UP CARE: If you have been referred to a physician for follow-up care, call the physician s office for an appointment as you were instructed or within the next two days. If you experience worsening or a significant change in your symptoms, notify the physician immediately or return to the Emergency Department at any time for re-evaluation. Prescriptions: Cyclobenzaprine HCl [Flexeril 10 mg Tablet] 10 mg PO TIDP PRN #15 tab PRN Reason: Forms: Elevated Blood Pressure Referrals: [facility] [Provider Group] - Follow up as needed
[2017-03-28 05:53] VITALS: BP 141/62
== END 2017-03-28 05:50 | disposition home or self-care (01) ==
LOC: ER 02:28
DX: M54.5 Low back pain (principal); R10.9 Unspecified abdominal pain; I10 Essential (primary) hypertension; Z87.442 Personal history of urinary calculi
CPT/HCPCS: 99284; 96372; 81001; 76380; J1885; J1100

== ENCOUNTER → 2017-06-20 | Outpatient (CLI) | payer OTHER ==
[2017-06-20 11:38] LABS: ABSOLUTE BASOPHILS # (AUTO) 0.1 10^3/uL (0.0-0.2); ABSOLUTE EOSINOPHILS # (AUTO) 0.5 10^3/uL (0.0-0.6); ABSOLUTE MONOCYTES (AUTO) 0.7 10^3/uL (0.1-1.4); ABSOLUTE NEUT (AUTO) 5.8 10^3/uL (1.7-8.2); EOSINOPHILS % (AUTO) 5.3 % (0-6); HEMATOCRIT 40.8 % (37.9-51.0); HEMOGLOBIN 13.8 g/dL (13.5-17.0); LYMPHOCYTES % (AUTO) 22.2 % (13-45); MEAN CORPUSCULAR HEMOGLOBIN 28.1 pg (27.0-33.4); MEAN CORPUSCULAR HGB CONC 33.9 g/dL (32.0-36.0); MEAN CORPUSCULAR VOLUME 83 fl (80-97); MONOCYTES % (AUTO) 8.2 % (3-13); PLATELET COUNT 357 10^3/uL (150-450); RED BLOOD COUNT 4.92 10^6/uL (4.35-5.55); RED CELL DISTRIBUTION WIDTH 15.8 % (11.5-14.0); SEGMENTED NEUTROPHILS % (AUTO) 63.3 % (42-78); TOTAL CELLS COUNTED % (AUTO) 100 %; WHITE BLOOD COUNT 9.1 10^3/uL (4.0-10.5)
[2017-06-20 12:00] LABS: ALANINE AMINOTRANSFERASE 25 U/L (21-72); ALBUMIN 3.8 g/dL (3.5-5.0); ALKALINE PHOSPHATASE 83 U/L (38-126); ANION GAP 12 (5-19); ASPARTATE AMINO TRANSFERASE 22 U/L (17-59); BILIRUBIN,DIRECT 0.3 mg/dL (0.0-0.4); BILIRUBIN,TOTAL 0.5 mg/dL (0.2-1.3); BLOOD UREA NITROGEN 22 mg/dL (7-20); CALCIUM 9.5 mg/dL (8.4-10.2); CARBON DIOXIDE 39 mmol/L (22-30); CHLORIDE 98 mmol/L (98-107); CHOLESTEROL 165.26 mg/dL (0-200); GLUCOSE 94 mg/dL (75-110); POTASSIUM 4.2 mmol/L (3.6-5.0); SODIUM 149.3 mmol/L (137-145); TOTAL PROTEIN 6.7 g/dL (6.3-8.2); TRIGLYCERIDES 205 mg/dL (<150)
[2017-06-20 12:11] LABS: DIRECT LDL 110 mg/dL (<100)
== END ==
LOC: CCC 10:53
DX: I50.30 Unspecified diastolic (congestive) heart failure (principal); M10.9 Gout, unspecified; I10 Essential (primary) hypertension
CPT/HCPCS: 36415; 80053; 80061; 83036; 84153; 84443; 85025

== ENCOUNTER 2017-12-21 02:45 | Inpatient (IN) | payer MEDICAID, OTHER ==
--- NOTE | 2017-12-21 03:22 | ER Document Report ---
ED General - General Chief Complaint: Shortness Of Breath Stated Complaint: SHORTNESS OF BREATH Time Seen by Provider: 12/21/17 03:07 Notes: Patient is a 62-year-old male who presents with complaints of difficulty breathing. He says that he has had worsening difficulty breathing over the course of a month but in the last couple days became much worse. He says he cannot lay down or if he will start coughing and be unable to breathe. He is on furosemide. He says he was switched from torsemide. Says since switching to furosemide his swelling in his lower extremities become worse and feels his breathing is also become worse. No chest pain. He says that over the last 24 hours he is also felt as if his A. fib is been rapid. He says he will times where his heart will start beating very rapidly and then will come back down. He takes Toprol as well as Xarelto for his atrial fibrillation. Denies any recent fevers or infections. He says he has an ejection fraction of 35%. His fancy wire drawer is Dr. Mendez. No other complaints at this time. TRAVEL OUTSIDE OF THE [place] IN LAST 30 DAYS: No - Related Data Allergies/Adverse Reactions: No Known Allergies Allergy (Verified 08/15/16 16:00) Past Medical History - Social History Smoking Status: Never Smoker Frequency of alcohol use: None Drug Abuse: None Family History: Reviewed & Not Pertinent - Past Medical History Cardiac Medical History: Reports: Hx Atrial Fibrillation, Hx Congestive Heart Failure Pulmonary Medical History: Reports: Hx Pneumonia Renal/ Medical History: Reports: Hx Benign Prostatic Hyperplasia, Hx Kidney Stones. Denies: Hx Peritoneal Dialysis Musculoskeletal Medical History: Reports Hx Arthritis, Reports Hx Musculoskeletal Trauma Psychiatric Medical History: Reports: Hx Depression Traumatic Medical History: Reports: Hx Fractures Past Surgical History: Reports: Hx Inguinal Hernia, Hx Orthopedic Surgery - ORIF left leg, Other - Multiple cardiac ablations Review of Systems - Review of Systems Notes: My Normal Review Basic REVIEW OF SYSTEMS: CONSTITUTIONAL : Denies fever, chills, or sweats. Denies recent illness. EENT: Denies eye, ear, throat, or mouth pain or symptoms. Denies nasal or sinus congestion. CARDIOVASCULAR: Denies chest pain. RESPIRATORY: Difficulty breathing. GASTROINTESTINAL: Denies abdominal pain. Denies nausea, vomiting, or diarrhea. MUSCULOSKELETAL: Edema in bilateral lower extremities. SKIN: Denies rash or skin lesions. NEUROLOGICAL: Denies altered mental status or loss of consciousness. Denies headache. Denies weakness or paralysis or loss of use of either side. Denies problems with gait or speech. Denies sensory or motor loss. ALL OTHER SYSTEMS REVIEWED AND NEGATIVE. Physical Exam - Vital signs Vitals: Temp Pulse Resp BP Pulse Ox 98.2 F 69 40 H 152/120 H 93 12/21/17 02:53 12/21/17 02:53 12/21/17 02:53 12/21/17 02:53 12/21/17 02:53 - Notes Notes: General Appearance: Well nourished, alert, cooperative, moderate acute distress , no obvious discomfort. Patient's O2 saturation is around 88-89% while on room air and sitting up in bed. Patient speaks in approximately 3-4 words before having to take a breath. Vitals: reviewed, See vital signs table. Head: no swelling or tenderness to the head Eyes: PERRL, EOMI, Conjuctiva clear Mouth: No decreasd moisture Throat: No tonsillar inflammation, No airway obstruction, No lymphadenopathy Neck: Supple, no neck tenderness, No thyromegaly Lungs: No wheezing, some basilar rales bilaterally, No rhonci, mild accessory muscle use, good air exchange bilaterally. Heart: Normal rate, irregular rythm, No murmur, no rub Abdomen: Normal BS, soft, No rigidity, No abdominal tenderness, No guarding, no rebound, no abdominal masses, no organomegaly Extremities: strength 5/5 in all extremities, good pulses in all extremities, no swelling or tenderness in the extremities, 3+ bilateral lower extremity edema. Skin: warm, dry, appropriate color, no rash Neuro: speech clear, oriented x 3, normal affect, responds appropriately to questions. Course - Re-evaluation Re-evalutation: 12/21/17 04:13 On reevaluation patient's oxygen had been turned down to 1 L. His oxygen saturation went down to 88% on the 1 L and therefore I put him back at 3 L. He now feels much better with his oxygen at 3 L. He does have a significant amount of edema in his lower extremities. His BNP is elevated. Chest x-ray shows some haziness in the bases but I do hear some rales in his bases on lung auscultation therefore I think diuresis is appropriate. I have ordered Lasix for him. At this time being that the patient does have new onset oxygen requirement with rales on auscultation as well as elevated BNP I think is appropriate to admit him for CHF exacerbation requiring diuresis and oxygen supplementation. I did speak with Dr. Riojas, hospitalist, who agrees to evaluate the patient for admission. Dictation of this chart was performed using voice recognition software; therefore, there may be some unintended grammatical errors. - Vital Signs Vital signs: Temp Pulse Resp BP Pulse Ox 98.2 F 69 40 H 152/120 H 93 12/21/17 02:53 12/21/17 02:53 12/21/17 02:53 12/21/17 02:53 12/21/17 02:53 - Laboratory Result Diagrams: 12/21/17 03:23 12/21/17 03:23 Laboratory results interpreted by me: 12/21/17 12/21/17 12/21/17 03:23 03:23 03:23 WBC 13.3 H RBC 5.67 H MCV 78 L MCH 25.7 L RDW 17.4 H Seg Neutrophils % 80.4 H Lymphocytes % 10.5 L Absolute Neutrophils 10.7 H Sodium 147.9 H BUN 22 H Glucose 128 H Total Bilirubin 1.7 H NT-Pro-B Natriuret Pep 9640 H - EKG Interpretation by Me Additional EKG results interpreted by me: 12/21/17 03:17 EKG is reviewed and interpreted by me. EKG shows A. fib with a rate of 70 bpm. Patient has some mild ST segment depression in lead I and aVL. This is very similar to his previous EKG from August 15, 2016. QRS duration is prolonged. QT interval is within normal range. Discharge - Discharge Clinical Impression: Hypoxemia CHF exacerbation Qualifiers: Heart failure type: unspecified Qualified Code(s): I50.9 - Heart failure, unspecified Dyspnea Qualifiers: Dyspnea type: orthopnea Qualified Code(s): R06.01 - Orthopnea Condition: Stable Disposition: ADMITTED OBSERVATION Admitting Provider: Hospitalist Unit Admitted: Telemetry Referrals: [facility] [NO LOCAL MD] - Follow up as needed
[2017-12-21 03:37] LABS: ABSOLUTE BASOPHILS # (AUTO) 0.1 10^3/uL (0.0-0.2); ABSOLUTE EOSINOPHILS # (AUTO) 0.3 10^3/uL (0.0-0.6); ABSOLUTE LYMPHOCYTES (AUTO) 1.4 10^3/uL (0.5-4.7); ABSOLUTE MONOCYTES (AUTO) 0.8 10^3/uL (0.1-1.4); ABSOLUTE NEUT (AUTO) 10.7 10^3/uL (1.7-8.2); BASOPHILS % (AUTO) 1.1 % (0-2); HEMATOCRIT 44.3 % (37.9-51.0); HEMOGLOBIN 14.6 g/dL (13.5-17.0); LYMPHOCYTES % (AUTO) 10.5 % (13-45); MEAN CORPUSCULAR HEMOGLOBIN 25.7 pg (27.0-33.4); MEAN CORPUSCULAR HGB CONC 32.9 g/dL (32.0-36.0); MEAN CORPUSCULAR VOLUME 78 fl (80-97); PLATELET COUNT 237 10^3/uL (150-450); RED BLOOD COUNT 5.67 10^6/uL (4.35-5.55); RED CELL DISTRIBUTION WIDTH 17.4 % (11.5-14.0); SEGMENTED NEUTROPHILS % (AUTO) 80.4 % (42-78); TOTAL CELLS COUNTED % (AUTO) 100 %; WHITE BLOOD COUNT 13.3 10^3/uL (4.0-10.5)
[2017-12-21 03:54] LABS: ALANINE AMINOTRANSFERASE 23 U/L (21-72); ALBUMIN 3.9 g/dL (3.5-5.0); ALKALINE PHOSPHATASE 108 U/L (38-126); ANION GAP 14 (5-19); ASPARTATE AMINO TRANSFERASE 28 U/L (17-59); BILIRUBIN,DIRECT 0.4 mg/dL (0.0-0.4); BILIRUBIN,TOTAL 1.7 mg/dL (0.2-1.3); BLOOD UREA NITROGEN 22 mg/dL (7-20); CALCIUM 9.2 mg/dL (8.4-10.2); CARBON DIOXIDE 28 mmol/L (22-30); CHLORIDE 106 mmol/L (98-107); GLUCOSE 128 mg/dL (75-110); SODIUM 147.9 mmol/L (137-145); TOTAL PROTEIN 6.6 g/dL (6.3-8.2)
--- NOTE | 2017-12-21 03:54 | RADIOLOGY REPORT (SQ) ---
Chest single view on 12/21/2017 at 3:39 AM CLINICAL INDICATION: Shortness of breath COMPARISON: None FINDINGS: Cardiomegaly is noted. The lung bases are poorly visualized. Cannot exclude basilar atelectasis or pneumonia. Lungs are otherwise clear. Hilar and mediastinal contours are within normal limits. IMPRESSION: Poor visualization of the lung bases, cannot exclude component of basilar atelectasis or pneumonia. Consider two-view exam when feasible to better evaluate.
[2017-12-21 04:06] LABS: TROPONIN I 0.022 ng/mL
[2017-12-21] MEDS ORDERED: FUROSEMIDE INJ/PF 40 MG/4 ML SDV IV ONE (04:07)
[2017-12-21] MEDS ORDERED: PROMETHAZINE HCL INJ 25 MG/1 ML VIAL IV PRN ×2 (04:53→15:30)
[2017-12-21] MEDS ORDERED: IPRATROPIUM/ALBUTEROL 0.5-2.5 MG/3 ML AMPUL NEB PRN (04:53)
[2017-12-21] MEDS ORDERED: MAG HYDROX/AL HYDROX/SIMETH SUSP 30 ML UDCUP PO PRN (04:53)
[2017-12-21] MEDS ORDERED: PROMETHAZINE HCL 25 MG TABLET PO PRN (04:53)
--- NOTE | 2017-12-21 05:21 | PDOC H&P ---
History of Present Illness Admission Date/PCP: 12/21/17 04:15 [facility] Patient complains of: Progressive shortness of breath History of Present Illness: JANICE LION is a 62 year old male with history of chronic systolic and diastolic congestive heart failure with last ejection fraction 35% March this year, chronic atrial fibrillation on anticoagulation with Xarelto, moderate to severe pulmonary hypertension, morbid obesity. Comes to the emergency department with complaints of difficulty breathing. Patient tells me that his symptoms has been worsening for the last 2 or 3 months with progressive shortness of breath, dry cough on and off, denies wheezing, orthopneic, tells me that he cannot sleep and when he is laying down he feels short of breath and tachycardic, this was the main reason he came to the emergency department. He has worsening lower extremities edema but tells me he has been losing weight. Tells me that a couple of months ago when he went to [facility] medications through [facility] they switch his torsemide 100 mg to Lasix 120 mg a day, he feels that it is not having the same diuretic effect. Patient follows with extras casting director Dr. Mendez and he has visited his office a week ago with a different extras casting director, no changes on his medications. In the emergency department chest x-ray with poor visualization. BNP 9640 from 4500 on July 2016 Past Medical History Cardiac Medical History: Reports: Atrial Fibrillation - Chronic, Congestive Heart Failure - Chronic systolic and diastolic, Hypertension Pulmonary Medical History: Reports: Pneumonia, Other - Pulmonary hypertension Renal/ Medical History: Reports: Other - BPH Musculoskeltal Medical History: Reports: Arthritis, Gout Psychiatric Medical History: Reports: Depression Past Surgical History Past Surgical History: Reports: Herniorrhaphy - Ventral wall hernia repair, Orthopedic Surgery - ORIF left leg, Tonsillectomy, Other - Multiple cardiac ablations Social History Smoking Status: Never Smoker Frequency of Alcohol Use: Rare Hx Recreational Drug Use: No Drugs: None Hx Prescription Drug Abuse: No Past Social History Note: Lives alone and receive his home medications through [facility] Family History Family History: Reviewed & Not Pertinent Family History: Mother is disease, had a history of CVA. Patient's father is from emphysema. Patient has a sister who is healthy. Daughter who is healthy name Lc Badillo who is his surrogate decision maker Parental Family History Reviewed: Yes - As above Children Family History Reviewed: NA Sibling(s) Family History Reviewed.: NA Medication/Allergy Home Medications: Colchicine [Colchicine 0.6 mg Tablet] 0.6 mg PO DAILY #30 tablet 08/19/16 Fluoxetine HCl [Prozac] 40 mg PO DAILY #30 capsule 08/19/16 Losartan Potassium [Cozaar 100 mg Tablet] 100 mg PO DAILY #30 tablet 08/19/16 Metoprolol Succinate [Toprol Xl] 100 mg PO DAILY #30 tab.sr.24h 08/19/16 Potassium Chloride 20 meq PO DAILY #30 tab.er.prt 08/19/16 Prednisone [Deltasone 10 mg Tablet] 10 mg PO ASDIR PRN #21 tablet 08/19/16 Rivaroxaban [Xarelto] 20 mg PO DAILY #30 tablet 08/19/16 Spironolactone [Aldactone 25 mg Tablet] 25 mg PO DAILY #30 tablet 08/19/16 Tamsulosin HCl [Flomax 0.4 mg Cap.sr] 0.4 mg PO DAILY #30 cap.sr.24h 08/19/16 Torsemide 100 mg PO DAILY #30 tablet 08/19/16 Cyclobenzaprine HCl [Flexeril 10 mg Tablet] 10 mg PO TIDP PRN #15 tab 03/28/17 Allergies/Adverse Reactions: No Known Allergies Allergy (Verified 08/15/16 16:00) Review of Systems Review of Systems: As outlined in the HPI, others negative Physical Exam Vital Signs: Temp Pulse Resp BP Pulse Ox 98.2 F 69 28 H 145/78 H 94 12/21/17 02:53 12/21/17 02:53 12/21/17 04:02 12/21/17 04:02 12/21/17 04:02 Additional comments: General appearance: Well-developed, morbid obese, alert and cooperative, and appears to be in no acute distress Head: Normocephalic Eyes: PEERL, EOMI, vision is grossly intact. Ears: External auditory canal and tympanic membranes clear, hearing grossly intact. Nose: No nasal discharge. Throat: Oral cavity and pharynx normal. No inflammation, swelling, exudate or lesions. Neck: Neck supple, nontender without lymphadenopathy, masses or thyromegaly. Cardiac: Normal S1 and S2. No S3, S4 or murmurs. Rhythm is irregular. There is no 4+ lower extremities pitting peripheral edema, cyanosis or pallor. Extremities are warm and well perfused. Capillary refill is less than 2 seconds. No carotid bruits. Lungs: Clear to auscultation and percussion with minimal rales, rhonchi, wheezing or diminished breath sounds. Not using accessory muscles. Abdomen: Positive bowel sounds. Soft. Nondistended, nontender. No guarding or rebound. No masses. No hepatosplenomegaly Extremities: No significant deformity or joint abnormality. With mild chronic skin changes in both shins Neurological: Cranial nerves II through XII grossly intact. Strength and sensation symmetric and intact throughout. Reflexes 2+ throughout. Skin: Skin normal color, texture and turgor with no lesions or eruptions, warm and dry. Psychiatric: The mental examination revealed the patient was oriented to person , place, and time. The patient was able to demonstrate good judgment on recent , without hallucinations, abnormal affect or abnormal behaviors. Results Laboratory Results: 12/21/17 12/21/17 12/21/17 03:23 03:23 03:23 WBC 13.3 H RBC 5.67 H Hgb 14.6 Hct 44.3 MCV 78 L MCH 25.7 L MCHC 32.9 RDW 17.4 H Plt Count 237 Seg Neutrophils % 80.4 H Lymphocytes % 10.5 L Monocytes % 6.0 Eosinophils % 2.0 Basophils % 1.1 Absolute Neutrophils 10.7 H Absolute Lymphocytes 1.4 Absolute Monocytes 0.8 Absolute Eosinophils 0.3 Absolute Basophils 0.1 Sodium 147.9 H Potassium 4.0 Chloride 106 Carbon Dioxide 28 Anion Gap 14 BUN 22 H Creatinine 1.21 Est GFR ( Amer) > 60 Est GFR (Non-Af Amer) > 60 Glucose 128 H Calcium 9.2 Total Bilirubin 1.7 H Direct Bilirubin 0.4 AST 28 ALT 23 Alkaline Phosphatase 108 Troponin I 0.022 NT-Pro-B Natriuret Pep 9640 H Total Protein 6.6 Albumin 3.9 EKG Comments: Atrial fibrillation, heart rate 62-93 Impressions: Chest X-Ray 12/21/17 03:20 IMPRESSION: Poor visualization of the lung bases, cannot exclude component of basilar atelectasis or pneumonia. Consider two-view exam when feasible to better evaluate. Assessment & Plan - Diagnosis (1) Acute on chronic combined systolic and diastolic CHF (congestive heart failure) Is this a current diagnosis for this admission?: Yes Plan: Patient comes with progressive shortness of breath, worsening lower extremities edema and orthopnea for the last 2 or 3 months, feels that he is secondary to his change of medication from torsemide to Lasix a couple of months ago. 40 mg of IV Lasix given in the emergency department with good results. We will keep the patient under telemetry monitoring, cardiac markers x3, Lasix 60 mg IV every 12 hours unless otherwise indicated by Dr. Mendez extras casting director for who I am placing a consultation and happens to be his extras casting director. Daily weights, input and output every 8 hours. Legs elevation. Fluid restriction. Oxygen protocol via nasal cannula. BNP has increased from 4500 to 9640 Patient tells me that some days he is not taking Lasix as if he goes outside he does not want to have the necessity to go to the bathroom frequently. During the last 7 days he took his Lasix 5 days. Patient was supposed to have an echocardiogram in the next few days, I will order this today (2) Chronic atrial fibrillation Is this a current diagnosis for this admission?: Yes Plan: Chronic atrial fibrillation with several ablations in the past. Heart rate control. Continue with metoprolol and Xarelto. (3) Morbid obesity Is this a current diagnosis for this admission?: Yes Plan: Lifestyle modification. (4) Hypertension Qualifiers: Hypertension type: essential hypertension Qualified Code(s): I10 - Essential (primary) hypertension Is this a current diagnosis for this admission?: Yes Plan: Tells me that his blood pressure is usually very well controlled, it is unusual to have a blood pressure 145/78. We will resume his home antihypertensive medications. - Time Time Spent: 50 to 70 Minutes Medications reviewed and adjusted accordingly: Yes Anticipated discharge: Home - Inpatient Certification Based on my medical assessment, after consideration of the patient's comorbidities, presenting symptoms, or acuity I expect that the services needed warrant INPATIENT care.: Yes I certify that my determination is in accordance with my understanding of Medicare's requirements for reasonable and necessary INPATIENT services [42 CFR 412.3e].: Yes Medical Necessity: Risk of Complication if Not Cared For in Hospital - Plan Summary Plan Summary: Plan discussed with patient, agrees with it.
[2017-12-21] MEDS ORDERED: RIVAROXABAN 10 MG TABLET PO SCH (08:00)
[2017-12-21] MEDS ORDERED: METOPROLOL SUCCINATE 50 MG TAB.SR.24H PO SCH (10:00)
[2017-12-21] MEDS ORDERED: TAMSULOSIN HCL 0.4 MG CAP.SR.24H PO SCH (10:00)
[2017-12-21] MEDS ORDERED: FUROSEMIDE INJ/PF 40 MG/4 ML SDV IV SCH (10:00)
[2017-12-21] MEDS ORDERED: SPIRONOLACTONE 25 MG TABLET PO SCH (10:00)
[2017-12-21] MEDS ORDERED: COLCHICINE 0.6 MG TABLET PO SCH (10:00)
[2017-12-21] MEDS ORDERED: FLUOXETINE HCL 20 MG CAPSULE PO SCH (10:00)
[2017-12-21] MEDS ORDERED: COLCHICINE 0.6 MG TABLET PO PRN (11:06)
[2017-12-21] MEDS: LOSARTAN POTASSIUM 50 MG TABLET PO SCH (11:40)
[2017-12-21] MEDS: TAMSULOSIN HCL 0.4 MG CAP.SR.24H PO SCH (11:42)
[2017-12-21] MEDS: SPIRONOLACTONE 25 MG TABLET PO SCH (11:42)
[2017-12-21] MEDS: POTASSIUM CHLORIDE 10 MEQ CAPSULE.ER PO SCH (11:42)
[2017-12-21] MEDS: GABAPENTIN 300 MG CAPSULE PO SCH (11:42)
[2017-12-21] MEDS: RIVAROXABAN 10 MG TABLET PO SCH (11:43)
[2017-12-21] MEDS: FLUOXETINE HCL 20 MG CAPSULE PO SCH (11:43)
[2017-12-21] MEDS: MULTIVITAMIN TABLET PO SCH (11:43)
--- NOTE | 2017-12-21 11:46 | PROGRESS NOTE E ---
Progress Note NAME: JANICE LION : 1955 AGE: 62Y DATE: 12/21/2017 ROOM: 527 SUBJECTIVE: The patient is currently out of bed to the bedside chair. He states that he feels about the same in comparison to when he came in. The patient denies any nausea, vomiting, diarrhea. His shortness of breath is about the same. The patient is unable to lie flat at all. He is quite sleepy because of this. He is just exhausted. The patient elaborated that he had been taking 100 mg of torsemide; however, his program had been switched and he ended up being substituted 100 of furosemide, of course, resulting in less efficacious management of his heart failure. The patient states that his symptoms have been ever increasing over the past 3 months and is just fed up with it. No other concerns are voiced at this time. REVIEW OF SYSTEMS: Rest of review of systems negative. MEDICATIONS: Medications have been reviewed. OBJECTIVE: GENERAL: The patient is a 62-year-old male who is awake, alert, and oriented to person, place, time, and situation. He is verbal, conversational, does not appear to be in acute distress. VITAL SIGNS: Temperature is 97.6, pulse 69, respirations 18, blood pressure is 130/106, oxygen saturation is 100% on 2 L nasal cannula. SKIN: Warm and dry. No rash. Not diaphoretic. HEENT: Pupils are reactive. Conjunctiva is pink. The patient does have JVP of the right clavicle. CARDIOVASCULAR SYSTEM: Heart is irregular, bradycardic. No rub. CHEST: Diminished, symmetrical. He does have bilateral basal crackles. ABDOMEN: Nontender. EXTREMITIES: The patient does have +2 bilateral lower extremity pitting edema. PSYCHIATRIC: Appropriate affect. Pleasant mood. DIAGNOSTICS: Lab values are as follows: Hematology obtained on 12/21/2017: WBCs are 13.3, hemoglobin is 14.6, hematocrit is 44.3, platelet count is 237,000. Chemistry obtained on 12/21/2017: Sodium is 147, potassium 4.0, chloride is 106, carbon dioxide 28, BUN 22, creatinine is 1.21. Glucose 128, calcium is 9.2, bilirubin is 1.7. IMPRESSION AND PLAN: 1. ACUTE ON CHRONIC SYSTOLIC AND DIASTOLIC CONGESTIVE HEART FAILURE. The patient's EF was estimated to be 35%. This was 18 months ago. The patient has received pretty good management on an outpatient basis [facility]; however, it appears that the transition from torsemide to furosemide was to his detriment. Will continue to aggressively diurese at this point in time, follow chemistries. 2. [id number] PULMONARY HYPERTENSION. Management as per number 1. 3. HISTORY OF COR PULMONALE. 4. CHRONIC ATRIAL FIBRILLATION. THE PATIENT IS ACTUALLY BRADYCARDIC AT THIS POINT IN TIME. He does continue on his Xarelto. Will hold his isaias agents at this point and follow. 5. MORBID OBESITY. The patient has been counseled. 6. HYPERTENSION. Blood pressures are slightly elevated. Continue home medicines. 7. HISTORY OF GOUT. Asymptomatic at this point in time. 8. BENIGN PROSTATIC HYPERPLASIA. Continue Flomax. 9. DEPRESSION. Continue home medication. DISPOSITION: The patient is a FULL CODE. Pending patient's symptomatology and diagnostic findings, will re-evaluate in the a.m. Time spent on this followup including assessment, plan, physical examination, patient education, review of records, and specialty collaboration is 35 minutes. DICTATING PHYSICIAN: KARLA SNYDER NP [id number] PHY#: [id number] ID: [id number] JOB#: [id number] ACCT: [id number] cc: >
--- NOTE | 2017-12-21 12:26 | EKG REPORT ---
SEVERITY:- ABNORMAL ECG - ATRIAL FIBRILLATION, V-RATE 62-93 INCOMPLETE LEFT BUNDLE BRANCH BLOCK : Confirmed by: Jany Mendez MD 21-Dec-2017 12:25:46
--- NOTE | 2017-12-21 16:49 | XCELERA REPORT ---
[address] [address] Transthoracic Echocardiogram Report Name: JANICE LION Age: 62 yrs Gender: Male : 1955 Patient Status: Inpatient Patient Location: [address] [place] [address] Study Date: 12/21/2017 09:28 AM Height: 71 in Weight: 330 lb BSA: 2.6 m2 Procedure: A two-dimensional transthoracic echocardiogram with color flow Doppler was performed. The study was technically difficult with many images being suboptimal in quality. Reason For Study: Acute on chronic systolic and [place] CHF exacerbation History: CHF / /AtrialFibrillation. Ordering Physician: BRISEIDA NEWMAN Performed By: Garth Jain Interpretation Summary The left ventricle is moderately to severly dilated. There is normal left ventricular wall thickness. LV EF is 35% LV diastolic function could not be adequately assessed due to atrial fibrilation. There is moderate global hypokinesis of the left ventricle. There is no thrombus. The right ventricle is not well visualized secondary to technical limitations Right atrium not well visualized secondary to technical limitations The left atrium is severely dilated. There is no evidence of mitral valve prolapse. There is no mitral valve stenosis. There is a moderate to severe amount of mitral regurgitation There is no aortic valve stenosis There is no LVOT obstruction. There is a mild amount of aortic regurgitation There is no tricuspid stenosis. There is a moderate amount of tricuspid regurgitation There is servere pulmonary hypertension by echo RVSP is 75 to 80 mm of Hg , with RA mean of 15 to 20. There is no pulmonic valvular stenosis. There is no pulmonic valvular regurgitation. The aortic root is normal size. The inferior vena cava appeared dilated and decreased < 50% with respiration (RAP 15-20 mmHg) There is no pericardial effusion. MMode/2D Measurements & Calculations RVDd: 3.5 cm LVIDd: 7.1 cm FS: 20.9 % Ao root diam: 3.7 cm IVSd: 1.1 cm LVIDs: 5.6 cm EDV(Teich): 261.4 ml Ao root area: 10.9 cm2 LVPWd: 1.1 cm ESV(Teich): 153.3 ml LA dimension: 5.3 cm EF(Teich): 41.4 % Doppler Measurements & Calculations MV E max sy: MV P1/2t max sy: Ao V2 max: AI max sy: 115.1 cm/sec 119.5 cm/sec 144.3 cm/sec 469.7 cm/sec MV P1/2t: 89.1 msec Ao max PG: AI max PG: MVA(P1/2t): 2.5 cm2 8.3 mmHg 88.3 mmHg MV dec slope: AI dec slope: 142.7 cm/sec2 392.9 cm/sec2 AI P1/2t: MV dec time: 0.19 sec 964.3 msec LV V1 max PG: PA V2 max: TR max sy: AV P1/2t-pr_phl: 4.6 mmHg 82.9 cm/sec 385.7 cm/sec 964.3 msec LV V1 max: PA max P.8 mmHg TR max P.7 cm/sec 59.5 mmHg LV dP/dt: 699.0 mmHg/s MV P1/2t-pr_phl: 89.1 msec Left Ventricle The left ventricle is moderately to severly dilated. There is normal left ventricular wall thickness. LV EF is 35%. Left ventricular systolic function is moderately reduced. LV diastolic function could not be adequately assessed due to atrial fibrilation. There is moderate global hypokinesis of the left ventricle. There is no thrombus. Right Ventricle The right ventricle is not well visualized secondary to technical limitations. Atria Right atrium not well visualized secondary to technical limitations. The left atrium is severely dilated. Mitral Valve There is mild mitral annular calcification. There is no evidence of mitral valve prolapse. There is no vegetation seen on the mitral valve. There is no mitral valve stenosis. There is a moderate to severe amount of mitral regurgitation. Aortic Valve There is no aortic valvular vegetation. There is no aortic valve stenosis. There is no LVOT obstruction. There is a mild amount of aortic regurgitation. Tricuspid Valve There is no tricuspid stenosis. There is a moderate amount of tricuspid regurgitation. There is servere pulmonary hypertension by echo. RVSP is 75 to 80 mm of Hg , with RA mean of 15 to 20. Pulmonic Valve There is no pulmonic valvular stenosis. There is no pulmonic valvular regurgitation. Great Vessels The aortic root is normal size. The inferior vena cava appeared dilated and decreased < 50% with respiration (RAP 15-20 mmHg). Effusions There is no pericardial effusion. : BRISEIDA NEWMAN > Jany Mendez
--- NOTE | 2017-12-21 20:13 | PDOC CONSULTATION ---
Consultation-Blank Consultation: CARDIOLOGY CONSULTATION by Dr. Jany Mendez. DATE OF CONSULTATION: Patient seen at 12:30 PM on 12/21/2017. REASON FOR CONSULTATION: Patient with the atrial fibrillation and bradycardia, and exacerbation of congestive heart failure. HISTORY OF PRESENT ILLNESS: Patient is a 62-year-old male with known history of atrial fibrillation, history of pulmonary hypertension, history of cardiomyopathy, history of hypertension who states that due to his pharmacy changing from torsemide to furosemide, which he thought was not working well with him, developed increasing leg edema PND orthopnea and increasing shortness of breath since the past 1 week. He denies any chest pain or discomfort. He also notices rapid palpitations and was unable to sleep. Although he complained of rapid palpitations. Here in the hospital he is noted to be bradycardic and his metoprolol has been held. The patient denies noncompliance with medication or diet. He has not taken any nonsteroidal anti-inflammatory agents in a long time. He denies any dizziness or syncope or near syncope. There is no symptoms of sudden . There is no TIA CVA symptoms. There is no bleeding on Xarelto which the patient is on. PAST MEDICAL HISTORY: Is positive for history of hypertension. There is no history of coronary artery disease he states he had a cardiac catheterization in 2014 and was told he had normal coronary arteries. He has history of atrial fibrillation and has had cardioversion x2 and also had ablation x2 all of which failed and the patient since July 2016 has been in chronic atrial fibrillation. His amiodarone in the last admission in July 2016 was discontinued, since the patient continued to be in atrial fibrillation. She also has a history of cardiomyopathy his ejection fraction July,, was 35%. He has no history of diabetes mellitus. There is no history of IA or anginal symptoms. He has a history of episodic congestive heart failure and has had several episodes of that and has been admitted for that. There is no history of thyroid disease. He has a history of depression well controlled with Prozac. PAST SURGICAL HISTORY: Cardioversion of atrial fibrillation x2 which were unsuccessful with recurrences of atrial fibrillation. He also had ablation of atrial fibrillation x2, and this is also been unsuccessful. He has had femur fracture repair and ventral hernia wall repair. He also has a child has not had a left ankle fracture which was treated surgically. ALLERGIES: He has no known allergies. SOCIAL HISTORY: There is no history of tobacco use. The patient has never smoked. There is no history of EtOH or street drug abuse. FAMILY HISTORY: His father had emphysema. Mother had a CVA. There is no history of coronary artery disease or sudden in the family. DISPOSITION: The patient is a full code. His daughter is a surrogate healthcare decision maker. REVIEW OF SYSTEMS: CONSTITUTIONAL: He has no fever chills or rigors. He has generalized fatigue and weakness. HEAD: Denies headaches or head injury. There is no dizziness. EYES: There is no history of amblyopia diplopia. There is no history of amaurosis fugax. YEARS: There is no history of hearing loss. No history of tinnitus. No history of vertigo. No history of recurrent ear infections. NOSE: There is no history of hayfever. There is no history of nosebleeds. There is no history of nasal polyps. MOUTH: No history of altered taste sensation. No history of ulcers in the mouth. No history of bleeding from the gums. THROAT: No history of odynophagia or dysphagia. No history of recurrent sore throats. SKIN: No history of pruritus. No history of psoriasis. No history of yellowish discoloration of the skin. No history of skin cancer. No history of jaundice. NECK: No history of symptoms of cervical spine arthritis. No history of goiter. No history of lymphadenopathy. LUNGS: There is no history of asthma COPD. The patient denies any fever wheezing cough. There is no history of pulmonary embolism. He has no history of pleuritic chest pain. There is no hemoptysis. There is no symptoms of upper or lower respiratory tract infection. He does believe that he has sleep apnea but he has not had a sleep study. CARDIAC: History of hypertension present history of episode of congestive heart failure history of cardia myopathy with the last ejection fraction by echo 35%. His echo at this time also shows LV ejection fraction of 35%. There is no history of coronary artery disease. He states he had normal coronary arteries by cardiac catheterization in 2015. He has chronic atrial fibrillation. He has no history of syncope. There is no the patient does complain of palpitations. Which he claims was rapid. At present the patient is bradycardic. His beta-florencia has been rightly held. He has a history of episodic leg edema but now the leg edema has been sustained. He also has a history of PND and orthopnea. The patient states that he has been on Xarelto since the last admission here in July 2016. GI: No history of GI bleed no history of fatty food intolerance. No history of cirrhosis. No history of jaundice no history of abdominal pain. No history of peptic ulcer disease or GERD symptoms. No history of altered bowel movements. MUSCULOSKELETAL: Denies history of arthritis or collagen vascular disease. RENAL: History of symptoms of enlarged prostate controlled with medication. No history of chronic kidney disease. No history of recurrent UTIs. No symptoms or UTI. No history of hematuria pyuria or dysuria. ENDOCRINE: No history of diabetes mellitus no history of thyroid disease. No history of polydipsia polyuria NO HISTORY OF HEAT OR COLD INTOLERANCE. Metabolic: History of morbid obesity present denies hyper lipidemia. He has a history of gout, and is controlled with colchicine. COKE INSPECTOR: No history of TIA or CVA. No history of headaches migraines or seizures no history of gait imbalance. PSYCHIATRIC: No history of anxiety . He has a history of depression, with the symptoms well controlled with Prozac. No history of suicidal or homicidal ideation. VASCULAR : No history of calf or buttock claudication. No history of DVT. HEMATOLOGICAL : No history of bleeding diathesis. No history of blood dyscrasias. No history of clotting disorders. PHYSICAL EXAMINATION: The patient is morbidly obese. The patient is sitting up in the chair due to orthopnea, but is not in any major distress. The patient is well-groomed. Selected Entries 12/21/17 12:19 Temperature 97.4 F Temperature Oral Source Pulse Rate 62 Respiratory 18 Rate Blood Pressure 154/96 H [Left Upper Arm ] Blood Pressure 115 Mean [Left Upper Arm] Blood Pressure Sitting Position [Left Upper Arm] O2 Sat by Pulse 99 Oximetry Oxygen Delivery Nasal Cannula Method ( includes room air) Oxygen Flow 3 Rate HEAD: Is atraumatic and normocephalic. EYES: Pupils are equal round regular reactive to light accommodation. Extraocular movements are normal. There is no clinical pallor. There is no scleral icterus. EARS: External auditory canals are clear. Tympanic membranes are intact. There is no lesions on the pinna. NOSE: There is no deviated nasal septum. There is no inflammation of the nasal mucous membrane. MOUTH: Mucous membranes of mouth are moist tongue is moist there is no ulcers there is no bleeding from the gums. THROAT: There is no redness of the oropharynx. There is no exudates in the throat. SKIN: There is no skin lesions or skin rashes. There is no petechia or ecchymosis. NECK: Is supple. There is mild JVD present. Carotids are equal there is no bruits. There is no lymphadenopathy. There is no goiter. Trachea central. There is no accessory muscles of respiration in use. LUNGS: There is a few bibasilar rales of CHF. Otherwise the rest of the lungs are clear. There is no rhonchi or wheezing. HEART S1-S2 is heard there is no S3 gallop there is no S4 gallop S1 is of variable intensity. There is a murmur of mitral regurgitation tricuspid regurgitation present. There is no definite murmur of aortic stenosis or aortic regurgitation heard. There is no rub. ABDOMEN: Is morbidly obese. There is no hepatosplenomegaly. Bowel sounds are well heard. There is no tender areas of masses. EXTREMITIES: Femorals are deep. Femorals are diminished. There is no femoral bruits. Leg pulses are difficult to palpate due to edema, and are diminished. There is 2-3+ edema bilaterally. There is no DVT or cellulitis. There is no calf tenderness. There is no sinus or clubbing. Capillary refill is normal. COKE INSPECTOR: The patient is conscious awake alert oriented x3 with no focal deficits. PSYCHIATRIC: The patient judgment insight are intact his affect is normal. DIAGNOSTICS: CHEST X-ray: Shows cardiomegaly. No definite evidence of congestive heart failure. Possible bibasilar atelectasis. The patient is an echocardiograph he shows that the patient's left ventricle is moderately to severely dilated. There is no LVH. The LV ejection fraction is moderately reduced at 35%. There is moderate to severe mitral regurgitation.. There is moderate to severe enlargement of left atrium. There is moderate tricuspid regurgitation, with severe pulmonary hypertension. The right ventricle systolic pressure is 75-80 mmHg. There is no aortic stenosis. There is mild aortic regurgitation. There is no pericardial effusion. The patient's EKG: Shows atrial fibrillation. Nonspecific ST T changes diffusely. Incomplete left bundle branch block pattern. LABORATORY DATA: 12/21/17 12/21/17 12/21/17 03:23 03:23 03:23 WBC 13.3 H RBC 5.67 H Hgb 14.6 Hct 44.3 MCV 78 L MCH 25.7 L MCHC 32.9 Plt Count 237 Seg Neutrophils % 80.4 H Lymphocytes % 10.5 L Monocytes % 6.0 Eosinophils % 2.0 Basophils % 1.1 Absolute Lymphocytes 1.4 Absolute Monocytes 0.8 Absolute Eosinophils 0.3 Absolute Basophils 0.1 Sodium 147.9 H Potassium 4.0 Chloride 106 Carbon Dioxide 28 Anion Gap 14 BUN 22 H Creatinine 1.21 Est GFR (Non-Af Amer) > 60 Glucose 128 H Calcium 9.2 Magnesium Total Bilirubin 1.7 H Direct Bilirubin 0.4 Neonat Total Bilirubin Not Reportable Neonat Direct Bilirubin Not Reportable Neonat Indirect Bili Not Reportable AST 28 ALT 23 Alkaline Phosphatase 108 Troponin I 0.022 NT-Pro-B Natriuret Pep 9640 H Total Protein 6.6 Albumin 3.9 12/21/17 12/21/17 12/21/17 03:23 10:24 15:30 WBC RBC Hgb Hct MCV MCH MCHC Plt Count Seg Neutrophils % Lymphocytes % Monocytes % Eosinophils % Basophils % Absolute Lymphocytes Absolute Monocytes Absolute Eosinophils Absolute Basophils Sodium Potassium Chloride Carbon Dioxide Anion Gap BUN Creatinine Est GFR (Non-Af Amer) Glucose Calcium Magnesium 2.2 Total Bilirubin Direct Bilirubin Neonat Total Bilirubin Neonat Direct Bilirubin Neonat Indirect Bili AST ALT Alkaline Phosphatase Troponin I 0.023 0.024 NT-Pro-B Natriuret Pep Total Protein Albumin MEDICATIONS: 12/21/17 04:07 Furosemide [Lasix Inj/Pf 40 mg/4 ml Sdv] 40 mg IV NOW ONE 12/21/17 04:53 Acetaminophen [Tylenol 325 mg Tablet] 650 mg PO Q4HP PRN Mag Hydrox/Al Hydrox/Simeth [Maalox Plus Susp 30 Udcup] 30 ml PO Q6HP PRN Promethazine HCl [Phenergan 25 mg Tablet] 25 mg PO Q4HP PRN 12/21/17 05:22 Cyclobenzaprine HCl [Flexeril 10 mg Tablet] 10 mg PO TIDP PRN 12/21/17 06:00 Normal Saline [Saline Flush 2.5 ml Monoject Prefil Syrin] 2.5 ml IV Q8 12/21/17 10:00 Losartan Potassium [Cozaar 50 mg Tablet] 100 mg PO DAILY Metoprolol Succinate [Toprol Xl 50 mg Tab.sr] 100 mg PO DAILY Potassium Chloride [Klor-Con 10 Meq Capsule ER] 20 meq PO DAILY 12/21/17 11:06 Colchicine [Colcrys 0.6 mg Tablet] 0.6 mg PO DAILYP PRN 12/21/17 12:00 Fluoxetine HCl [Prozac 20 mg Capsule] 40 mg PO QAM Gabapentin [Neurontin 300 mg Capsule] 300 mg PO QAM Multivitamin [Tab-A-Paulino (Multiple Vitamin) Tablet] 1 tab PO QAM Rivaroxaban [Xarelto 10 mg Tablet] 20 mg PO QAM Spironolactone [Aldactone 25 mg Tablet] 25 mg PO QAM Tamsulosin HCl [Flomax 0.4 mg Cap.sr] 0.4 mg PO QAM 12/21/17 15:30 Promethazine HCl [Phenergan Inj 25 mg/1 ml Vial] 25 mg IV Q4HP PRN 12/21/17 22:00 Furosemide [Lasix Inj/Pf 100 mg/10 ml Sdv] 60 mg IV Q12 IMPRESSION/RECOMMENDATION: 1. 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 Continue his current anti-cardia myopathy medication. Agree with intravenous Lasix. In view of the bradycardia note that the patient's metoprolol has been rightfully held. Continue his losartan. 2.Chronic atrial fibrillation: With no bradycardic. Agree with holding the patient's metoprolol for now. Would restart it when the heart rate comes up. Continue Xarelto 3. Cardiomyopathy: The patient's ejection fraction has not changed. Will discuss with tertiary care EP cardiology for possible AICD placement in this patient. Continue anti-cardiomyopathy treatment, and restart the patient's beta -florencia when the heart rate comes up. Continue intravenous diuretics. The other option would be to switch the patient to Entresto, but with the first discussed with the patient if he can afford it. 4. Hypertension: Note blood pressure still not optimally controlled. Would increase the patient's antihypertensives, with the addition of hydralazine. Hydralazine may also be beneficial for the patient's pulmonary hypertension.. 5. Severe pulmonary hypertension: This is secondary to the patient's cardiomyopathy and uncontrolled hypertension, and possibly secondary to sleep apnea, which is not being treated. Will discuss with the patient about placing a central line and starting the patient on inotropic support especially with Levophed to see if this will help his right heart failure. But must need to control his blood pressure much better prior to institution of Levophed intravenously. Later would refer the patient to pulmonary hypertension clinic in [facility] in [place]. 6. Symptoms suggestive of sleep apnea. Would empirically treat the patient with BiPAP at night. Later would recommend that the patient have a sleep study as an outpatient. 7. History of gout: Continue colchicine. 8. Morbid Obesity: This can be addressed later when the patient is compensated , with diet and exercise. Also would consider gastric bypass surgery. Patient's medications have been reviewed, and adjusted. Medical decision making is of high complexity. Discussed the management plan with the attending physician on the case. Will follow with you.
[2017-12-21] MEDS ORDERED: HYDRALAZINE HCL 50 MG TABLET PO SCH (22:00)
[2017-12-21] MEDS: FUROSEMIDE INJ/PF 100 MG/10 ML SDV IV SCH (22:37)
[2017-12-21] MEDS: HYDRALAZINE HCL 25 MG TABLET PO SCH (22:37)
[2017-12-21] MEDS: ACETAMINOPHEN 325 MG TABLET PO PRN (22:42)
[2017-12-22] MEDS: HYDRALAZINE HCL 25 MG TABLET PO SCH ×3 (05:08→23:05)
[2017-12-22 05:24] LABS: ANION GAP 14 (5-19); BLOOD UREA NITROGEN 22 mg/dL (7-20); CALCIUM 8.7 mg/dL (8.4-10.2); CARBON DIOXIDE 27 mmol/L (22-30); CHLORIDE 104 mmol/L (98-107); GLUCOSE 83 mg/dL (75-110); POTASSIUM 3.6 mmol/L (3.6-5.0); SODIUM 144.8 mmol/L (137-145)
[2017-12-22] MEDS: GABAPENTIN 300 MG CAPSULE PO SCH (08:20)
[2017-12-22] MEDS: MULTIVITAMIN TABLET PO SCH (08:20)
[2017-12-22] MEDS: FLUOXETINE HCL 20 MG CAPSULE PO SCH (08:20)
[2017-12-22] MEDS: SPIRONOLACTONE 25 MG TABLET PO SCH (08:21)
[2017-12-22] MEDS: TAMSULOSIN HCL 0.4 MG CAP.SR.24H PO SCH (08:21)
[2017-12-22] MEDS: RIVAROXABAN 10 MG TABLET PO SCH (09:58)
[2017-12-22] MEDS: LOSARTAN POTASSIUM 50 MG TABLET PO SCH (09:58)
[2017-12-22] MEDS: POTASSIUM CHLORIDE 10 MEQ CAPSULE.ER PO SCH (09:59)
[2017-12-22] MEDS: FUROSEMIDE INJ/PF 100 MG/10 ML SDV IV SCH ×2 (09:59→23:05)
--- NOTE | 2017-12-22 12:13 | PROGRESS NOTE E ---
Progress Note NAME: JANICE LION : 1955 AGE: 62Y DATE: 12/22/2017 ROOM: 527 SUBJECTIVE: The patient is out of bed to the bedside chair. The patient does feel slightly better. He is able to complete sentences. The patient is going to attempt to take a nap. The patient has been diuresing quite well, has had great urine output. The patient does admit to flushing some urine so I and O is not completely accurate but I do estimate that he is probably at least 2 L negative today. The patient has been afebrile, his blood pressures have been in an acceptable range, and the patient does not voice any other concerns at this time. REVIEW OF SYSTEMS: The rest of the review of systems is negative. MEDICATIONS: Medications have been reviewed. OBJECTIVE: GENERAL: The patient is a 62-year-old male who is awake, alert, and oriented to person, place, time, and situation. He is verbal, conversational, does not appear to be in any acute distress. VITAL SIGNS: As follows: Temperature is 97.8, pulse 68, respirations 17, blood pressure is 148/87, oxygen saturation is 94% on room air. SKIN: Warm and dry. No rash, not diaphoretic. HEENT: Pupils equal, round, and reactive to light and accommodation. Conjunctivae pink. No evidence of JVP. CARDIOVASCULAR: Heart is irregular. No rub. CHEST: Diminished, symmetrical, with bilateral basal crackles. ABDOMEN: Obese, soft. EXTREMITIES: +2 bilateral lower extremity pitting edema. PSYCHIATRIC: Appropriate affect. Pleasant mood. DIAGNOSTICS: Lab values are as follows. Hematology obtained on 12/21/2017: WBCs are 13.3, hemoglobin is 14.6, hematocrit is 44.3, platelet count is 237,000. Chemistry obtained on 12/22/2017: Sodium is 144, potassium 3.6, chloride is 104, carbon dioxide 27, BUN 22, creatinine is 1.18, glucose 83, calcium is 8.7, magnesium is 2.2. IMPRESSION AND PLAN: 1. ACUTE ON CHRONIC SYSTOLIC AND DIASTOLIC CONGESTIVE HEART FAILURE. The patient's EF was estimated to be 35% about 18 months ago and he is at the same spot. The patient has not had any documented dysrhythmias during this time and has talked with Dr. Mendez regarding this. The patient may proceed with AICD placement in the outpatient setting. At this time will continue to aggressively diurese as he has responded beautifully to the IV furosemide. However, he does need to be on torsemide on an outpatient basis. 2. [id number] PULMONARY HYPERTENSION. Management as per #1. 3. HISTORY OF COR PULMONALE. 4. CHRONIC ATRIAL FIBRILLATION. The patient was actually bradycardic yesterday; however, his heart rate is improving. Will resume his isaias agent at a half dose and continue Xarelto. 5. MORBID OBESITY. The patient has been counseled. 6. HYPERTENSION. Blood pressures are slightly elevated; however, they are completely reasonable. 7. HISTORY OF GOUT, ASYMPTOMATIC AT THIS TIME. 8. BPH. Continue Flomax. 9. DEPRESSION. Continue home medication. DISPOSITION: THE PATIENT IS A FULL CODE. Pending the patient's symptomatology and diagnostic findings, will re-evaluate in the a.m. Time spent on this followup, including assessment/plan, physical examination, patient education, review of records, is 25 minutes. DICTATING PHYSICIAN: KARLA SNYDER NP [id number] PHY#: [id number] ID: [id number] JOB#: [id number] ACCT: [id number] cc: >
[2017-12-22] MEDS: METOPROLOL SUCCINATE 50 MG TAB.SR.24H PO SCH (13:35)
[2017-12-22] MEDS: ACETAMINOPHEN 325 MG TABLET PO PRN (13:43)
--- NOTE | 2017-12-22 22:34 | Progress Note ---
Provider Note Provider Note: CARDIOLOGY PROGRESS NOTES by Dr. Jany Mendez on 12/22/2017. SUBJECTIVE: The patient feels better. He has no shortness of breath at rest. He has orthopnea but no PND. His leg edema is improved but still there. He has no chest pain. His heart rate has come up. He feels no palpitations. There is no chest pain or discomfort. There is no cough or sputum production. There is no wheezing. There is no ventricular arrhythmias seen on the monitor. There is no high-grade AV blocks seen on the monitor. The patient has no bleeding on Xarelto. There is no TIA CVA symptoms. SUBJECTIVE: The patient is morbidly obese. He is in no acute distress. He is well-groomed. Selected Entries 12/22/17 12/22/17 08:00 12:27 Temperature 97.8 F 98.1 F Temperature Oral Oral Source Pulse Rate 72 Heart Rate ( 68 Monitors) Respiratory 17 17 Rate Blood Pressure 138/94 H Blood Pressure 148/87 H [Left Upper Arm ] Blood Pressure 108 Mean Blood Pressure 107 Mean [Left Upper Arm] Blood Pressure Sitting Position [Left Upper Arm] BP Location Right Arm BP Position Sitting O2 Sat by Pulse 94 96 Oximetry Oxygen Delivery Room Air Method ( includes room air) Oxygen Delivery Room Air Method Premature 10 Ventricular Counted Beats HEAD: Is atraumatic and normocephalic. EYES: Pupils are equal round regular reactive to light accommodation. Extraocular movements are normal. There is no clinical pallor. There is no scleral icterus. EARS: External auditory canals are clear. Tympanic membranes are intact. There is no lesions on the pinna. NOSE: There is no deviated nasal septum. There is no inflammation of the nasal mucous membrane. MOUTH: Mucous membranes of mouth are moist tongue is moist there is no ulcers there is no bleeding from the gums. THROAT: There is no redness of the oropharynx. There is no exudates in the throat. SKIN: There is no skin lesions or skin rashes. There is no petechia or ecchymosis. NECK: Is supple. There is mild JVD present. Carotids are equal there is no bruits. There is no lymphadenopathy. There is no goiter. Trachea central. There is no accessory muscles of respiration in use. LUNGS: There is a few bibasilar rales of CHF. Otherwise the rest of the lungs are clear. There is no rhonchi or wheezing. HEART S1-S2 is heard there is no S3 gallop there is no S4 gallop S1 is of variable intensity. There is a murmur of mitral regurgitation tricuspid regurgitation present. There is no definite murmur of aortic stenosis or aortic regurgitation heard. There is no rub. ABDOMEN: Is morbidly obese. There is no hepatosplenomegaly. Bowel sounds are well heard. There is no tender areas of masses. EXTREMITIES: Femorals are deep. Femorals are diminished. There is no femoral bruits. Leg pulses are difficult to palpate due to edema, and are diminished. There is 2-3+ edema bilaterally. There is no DVT or cellulitis. There is no calf tenderness. There is no sinus or clubbing. Capillary refill is normal. 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 PSYCHIATRIC: The patient judgment insight are intact his affect is normal. 12/21/17 12/22/17 21:14 03:43 Sodium 144.8 Potassium 3.6 Chloride 104 Carbon Dioxide 27 BUN 22 H Creatinine 1.18 Est GFR (Non-Af Amer) > 60 Glucose 83 Calcium 8.7 Magnesium 2.2 Troponin I 0.017 The patient's 24-hour intake and output is 1562 mL intake, with an output of 3550 mL. IMPRESSION/RECOMMENDATION: 1. 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 Continue his current anti-cardia myopathy medication. Agree with intravenous Lasix. In view of the bradycardia note that the patient's metoprolol has been rightfully held. Continue his losartan. 2.Chronic atrial fibrillation: With bradycardic. Agree with holding the patient's metoprolol for now. Would restart it when the heart rate comes up. Continue Xarelto. Note that the patient's bradycardia has improved, and the patient's beta-florencia has been started at half the prior dose. This will be increased as per the patient's heart rate. 3. Cardiomyopathy: The patient's ejection fraction has not changed. Will discuss with tertiary care EP cardiology for possible AICD placement in this patient. Continue anti-cardiomyopathy treatment, and restart the patient's beta -florencia when the heart rate comes up. Continue intravenous diuretics. The other option would be to switch the patient to Entresto, but with the first discussed with the patient if he can afford it. 4. Hypertension: Note blood pressure still not optimally controlled, but much improved. Would increase the patient's antihypertensives, with the addition of hydralazine. Hydralazine may also be beneficial for the patient's pulmonary hypertension.. Would like to know if the patient's systolic blood pressure below 120. 5. Severe pulmonary hypertension: This is secondary to the patient's cardiomyopathy and uncontrolled hypertension, and possibly secondary to sleep apnea, which is not being treated. Will discuss with the patient about placing a central line and starting the patient on inotropic support especially with Levophed to see if this will help his right heart failure. But must need to control his blood pressure much better prior to institution of Levophed intravenously. The patient is making fair progress with the current treatment. And since the patient has Xarelto, he will be at increased risk for central line. Hence will hold off on inotropic support at present. This is been discussed with the patient and with the attending physician. Later would refer the patient for an AICD placement, and to pulmonary hypertension clinic in [facility] in [place]. 6. Symptoms suggestive of sleep apnea. Would empirically treat the patient with BiPAP at night. Later would recommend that the patient have a sleep study as an outpatient. 7. History of gout: Continue colchicine. 8. Morbid Obesity: This can be addressed later when the patient is compensated , with diet and exercise. Also would consider gastric bypass surgery. Medications reviewed. Medical decision making is of high complexity. 40 minutes spent on this patient with more than 50% of time spent in direct patient care. Discussed the management plan with attending physician on the case, and the other caregiving providers. We will follow with you.
[2017-12-22] MEDS: CYCLOBENZAPRINE HCL 10 MG TABLET PO PRN (23:10)
[2017-12-23] MEDS: CYCLOBENZAPRINE HCL 10 MG TABLET PO PRN ×2 (05:34→20:04)
[2017-12-23] MEDS: HYDRALAZINE HCL 25 MG TABLET PO SCH ×3 (05:34→21:58)
[2017-12-23] MEDS: FUROSEMIDE INJ/PF 100 MG/10 ML SDV IV SCH ×2 (05:37→17:46)
[2017-12-23] MEDS: SPIRONOLACTONE 25 MG TABLET PO SCH (08:50)
[2017-12-23] MEDS: FLUOXETINE HCL 20 MG CAPSULE PO SCH (08:50)
[2017-12-23] MEDS: GABAPENTIN 300 MG CAPSULE PO SCH (08:50)
[2017-12-23] MEDS: RIVAROXABAN 10 MG TABLET PO SCH (08:50)
[2017-12-23] MEDS: MULTIVITAMIN TABLET PO SCH (08:50)
[2017-12-23] MEDS: TAMSULOSIN HCL 0.4 MG CAP.SR.24H PO SCH (08:50)
[2017-12-23] MEDS: LOSARTAN POTASSIUM 50 MG TABLET PO SCH (10:02)
[2017-12-23] MEDS: METOPROLOL SUCCINATE 50 MG TAB.SR.24H PO SCH (10:03)
[2017-12-23] MEDS: POTASSIUM CHLORIDE 10 MEQ CAPSULE.ER PO SCH (10:03)
[2017-12-23] MEDS: PREDNISONE 20 MG TABLET PO SCH ×2 (10:49→17:48)
[2017-12-23 11:00] LABS: ANION GAP 14 (5-19); BLOOD UREA NITROGEN 20 mg/dL (7-20); CALCIUM 8.7 mg/dL (8.4-10.2); CARBON DIOXIDE 31 mmol/L (22-30); CHLORIDE 101 mmol/L (98-107); GLUCOSE 108 mg/dL (75-110); POTASSIUM 3.3 mmol/L (3.6-5.0); SODIUM 145.8 mmol/L (137-145)
[2017-12-23] MEDS ORDERED: COLCHICINE 0.6 MG TABLET PO ONE (11:00)
[2017-12-23] MEDS ORDERED: POTASSIUM CHLORIDE 10 MEQ CAPSULE.ER PO ONE (15:35)
--- NOTE | 2017-12-23 15:43 | Progress Note ---
Provider Note Provider Note: CARDIOLOGY PROGRESS NOTE by Dr. Jany Mendez on 12/23/2017. SUBJECTIVE: The patient still has orthopnea. He is shortness of breath at rest is improved. There is no wheezing. There is no cough. The patient has no PND or. His leg edema is slightly improved. There is no ventricular arrhythmias seen on the monitor. The patient is in atrial fibrillation with ventricular response of 70 bpm. Early has had a ventricular response of 58 bpm. He has no dizziness or syncope. He complains of severe cramps in the calf muscles. This is most likely is secondary to his hypokalemia with potassium of 3.3. We will replace this. There is no TIA CVA symptoms. There is no bleeding on Xarelto. PHYSICAL EXAMINATION: The patient is morbidly obese, in some distress due to leg cramps. He is well-groomed. Selected Entries 12/23/17 12:00 Temperature 98.9 F Temperature Oral Source Pulse Rate 70 Respiratory 18 Rate Blood Pressure 143/85 H [Left Upper Arm ] Blood Pressure 104 Mean [Left Upper Arm] Blood Pressure Supine Position [Left Upper Arm] O2 Sat by Pulse 98 Oximetry Oxygen Delivery Nasal Cannula Method ( includes room air) Oxygen Flow 2 Rate HEAD: Is atraumatic and normocephalic. EYES: Pupils are equal round regular reactive to light accommodation. Extraocular movements are normal. There is no clinical pallor. There is no scleral icterus. EARS: External auditory canals are clear. Tympanic membranes are intact. There is no lesions on the pinna. NOSE: There is no deviated nasal septum. There is no inflammation of the nasal mucous membrane. MOUTH: Mucous membranes of mouth are moist tongue is moist there is no ulcers there is no bleeding from the gums. THROAT: There is no redness of the oropharynx. There is no exudates in the throat. SKIN: There is no skin lesions or skin rashes. There is no petechia or ecchymosis. NECK: Is supple. There is mild JVD present. Carotids are equal there is no bruits. There is no lymphadenopathy. There is no goiter. Trachea central. There is no accessory muscles of respiration in use. LUNGS: There is a few bibasilar rales of CHF. Otherwise the rest of the lungs are clear. There is no rhonchi or wheezing. HEART S1-S2 is heard there is no S3 gallop there is no S4 gallop S1 is of variable intensity. There is a murmur of mitral regurgitation tricuspid regurgitation present. There is no definite murmur of aortic stenosis or aortic regurgitation heard. There is no rub. ABDOMEN: Is morbidly obese. There is no hepatosplenomegaly. Bowel sounds are well heard. There is no tender areas of masses. EXTREMITIES: Femorals are deep. Femorals are diminished. There is no femoral bruits. Leg pulses are difficult to palpate due to edema, and are diminished. There is 2-3+ edema bilaterally. There is no DVT or cellulitis. There is no calf tenderness. There is no sinus or clubbing. Capillary refill is normal. 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 PSYCHIATRIC: The patient judgment insight are intact his affect is normal. 12/23/17 10:22 Sodium 145.8 H Potassium 3.3 L Chloride 101 Carbon Dioxide 31 H Anion Gap 14 BUN 20 Creatinine 1.08 Est GFR (Non-Af Amer) > 60 Glucose 108 Calcium 8.7 Magnesium 2.2 The patient's 24-hour intake is 910 mL, with an output of 1575 mL. IMPRESSION/RECOMMENDATION: 1. 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 Continue his current anti-cardia myopathy medication. Agree with intravenous Lasix. In view of the bradycardia note that the patient's metoprolol has been rightfully held. His heart rate now is between 58-70 bpm. We will further observe his heart rate, and increase beta-florencia as needed. Continue his losartan. 2.Chronic atrial fibrillation: With bradycardic. Agree with holding the patient's metoprolol for now. Would restart it when the heart rate comes up. Continue Xarelto. Note that the patient's bradycardia has improved, and the patient's beta-florencia has been started at half the prior dose. This will be increased as per the patient's heart rate. 3. Cardiomyopathy: The patient's ejection fraction has not changed. Will discuss with tertiary care EP cardiology for possible AICD placement in this patient. Continue anti-cardiomyopathy treatment, and restart the patient's beta -florencia when the heart rate comes up. Continue intravenous diuretics. The other option would be to switch the patient to Entresto, but with the first discussed with the patient if he can afford it. 4. Hypertension: Note blood pressure still not optimally controlled, but much improved. Would increase the patient's antihypertensives, with the addition of hydralazine. Hydralazine may also be beneficial for the patient's pulmonary hypertension.. Would like to know if the patient's systolic blood pressure below 120. 5. Severe pulmonary hypertension: This is secondary to the patient's cardiomyopathy and uncontrolled hypertension, and possibly secondary to sleep apnea, which is not being treated. Will discuss with the patient about placing a central line and starting the patient on inotropic support especially with Levophed to see if this will help his right heart failure. But must need to control his blood pressure much better prior to institution of Levophed intravenously. The patient is making fair progress with the current treatment. And since the patient has Xarelto, he will be at increased risk for central line. Hence will hold off on inotropic support at present. This is been discussed with the patient and with the attending physician. Later would refer the patient for an AICD placement, and to pulmonary hypertension clinic in [facility] in [place]. 6. Symptoms suggestive of sleep apnea. Would empirically treat the patient with BiPAP at night. Later would recommend that the patient have a sleep study as an outpatient. 7. History of gout: Continue colchicine. 8. Morbid Obesity: This can be addressed later when the patient is compensated , with diet and exercise. Also would consider gastric bypass surgery. 9. Hypokalemia: Replace the patient's potassium which has been done. Discussed option of transfer to tertiary care center tomorrow for further management and for AICD placement. His medications have been reviewed. Medications adjusted. Medical decision making is of high complexity. Discussed with the attending physician on the case. 40 minutes spent on this patient more than 50% of time spent in direct patient care.
--- NOTE | 2017-12-23 18:47 | PROGRESS NOTE E ---
Progress Note NAME: JANICE LION : 1955 AGE: 62Y DATE: 12/23/2017 ROOM: 527 SUBJECTIVE: The patient is out of bed to the bedside chair. He states that he feels a little more short of breath actually than he did yesterday. His labs from this morning are pending. The patient still has excellent urine output. Denies any nausea, vomiting, diarrhea, dizziness, chest pain. No fevers, chills. The patient has been afebrile, blood pressure has been in good range, and the patient did not voice any other concerns at this time. REVIEW OF SYSTEMS: The rest of review of systems is negative. MEDICATIONS: Medications have been reviewed. OBJECTIVE: GENERAL: The patient is a 62-year-old male who is awake, alert, and oriented to person, time, place, situation. He is verbal, conversational. He does not appear to be in any acute distress. VITAL SIGNS: Temperature is 98.1, pulse 87, respirations 20, blood pressure is 133/84, oxygen saturation is 91% on room air. SKIN: Warm and dry. No rash. He is not diaphoretic. HEENT: Pupils are reactive. There is JVP to the right clavicle. CARDIOVASCULAR: Heart is regular. No murmur or rub. CHEST: Has bilateral basal crackles. Symmetrical, unlabored. ABDOMEN: Soft, nontender, nondistended, obese. EXTREMITIES: The patient does have +2 bilateral lower extremity pitting edema. DIAGNOSTICS: Lab values are as follows - Hematology obtained on 12/21/2017; WBC 13.3, hemoglobin is 14.6, hematocrit is 44.3, platelet count is 237,000. Chemistry obtain on 12/22/2017; sodium is 144, potassium 2.6, chloride is 104, carbon dioxide 27, BUN 22, creatinine is 1.18, glucose 83, calcium 8.7, magnesium is 2.2. IMPRESSION AND PLAN: 1. ACUTE ON CHRONIC SYSTOLIC AND DIASTOLIC CONGESTIVE HEART FAILURE. The patient's EF has not recovered, still remains at 35%. Talked with Dr. Mendez regarding this. The patient most likely will have an AICD placement at [facility] and this will be arranged at the first of the week. The patient has responded beautifully to IV furosemide, however, oral torsemide as the patient only responded to this on an outpatient basis. 2. MODERATE TO SEVERE PULMONARY HYPERTENSION. Management per #1. 3. HISTORY OF COR PULMONALE. 4. CHRONIC ATRIAL FIBRILLATION. The patient was actually bradycardic for a brief period of time. Decreased his isaias agent to half dose. Continue Xarelto. 5. MORBID OBESITY. The patient has been counseled. 6. HYPERTENSION. Blood pressures are slightly elevated, however, it is completely resolved. 7. HISTORY OF GOUT. The patient states he feels he is in a flare. Will resume home meds. 8. BPH. Will continue Flomax. 9. DEPRESSION. Continue home medication. CODE STATUS: The patient is a full code. DISPOSITION: Depending on the patient's symptomatology and diagnostic findings will reevaluate in the a.m. TIME SPENT: On this follow up, including assessment and plan, physical examination, patient education, review of records, and speciality collaboration is 35 minutes. DICTATING PHYSICIAN: KARLA SNYDER NP [id number] PHY#: [id number] ID: [id number] JOB#: [id number] ACCT: [id number] cc: >
[2017-12-24] MEDS: CYCLOBENZAPRINE HCL 10 MG TABLET PO PRN ×2 (06:01→21:30)
[2017-12-24] MEDS: HYDRALAZINE HCL 25 MG TABLET PO SCH ×3 (06:01→21:29)
[2017-12-24] MEDS: FUROSEMIDE INJ/PF 100 MG/10 ML SDV IV SCH ×2 (06:04→17:50)
[2017-12-24 07:05] LABS: ANION GAP 12 (5-19); BLOOD UREA NITROGEN 25 mg/dL (7-20); CALCIUM 9.2 mg/dL (8.4-10.2); CARBON DIOXIDE 30 mmol/L (22-30); CHLORIDE 103 mmol/L (98-107); GLUCOSE 89 mg/dL (75-110); POTASSIUM 3.9 mmol/L (3.6-5.0); SODIUM 145.2 mmol/L (137-145)
[2017-12-24] MEDS: GABAPENTIN 300 MG CAPSULE PO SCH (08:44)
[2017-12-24] MEDS: SPIRONOLACTONE 25 MG TABLET PO SCH (08:45)
[2017-12-24] MEDS: MULTIVITAMIN TABLET PO SCH (08:45)
[2017-12-24] MEDS: FLUOXETINE HCL 20 MG CAPSULE PO SCH (08:45)
[2017-12-24] MEDS: RIVAROXABAN 10 MG TABLET PO SCH (08:45)
[2017-12-24] MEDS: TAMSULOSIN HCL 0.4 MG CAP.SR.24H PO SCH (08:45)
[2017-12-24] MEDS: POTASSIUM CHLORIDE 10 MEQ CAPSULE.ER PO SCH (09:41)
[2017-12-24] MEDS: PREDNISONE 20 MG TABLET PO SCH ×2 (09:41→17:50)
[2017-12-24] MEDS: LOSARTAN POTASSIUM 50 MG TABLET PO SCH (09:42)
[2017-12-24] MEDS: METOPROLOL SUCCINATE 50 MG TAB.SR.24H PO SCH (09:42)
[2017-12-24] MEDS: COLCHICINE 0.6 MG TABLET PO SCH (09:43)
[2017-12-24] MEDS ORDERED: CYCLOBENZAPRINE HCL 10 MG TABLET PO ONE (10:11)
[2017-12-24] MEDS ORDERED: METHOCARBAMOL 500 MG TABLET PO ONE (13:00)
--- NOTE | 2017-12-24 16:26 | PROGRESS NOTE E ---
Progress Note NAME: JANICE LION : 1955 AGE: 62Y DATE: 12/24/2017 ROOM: 527 SUBJECTIVE: The patient is out of bed to the bedside chair. He states he felt a little better today. At this point in time it appears the patient is about 5 liters negative. The patient denies any nausea, vomiting, diarrhea, dizziness, or chest pain. The patient admits to ongoing shortness of breath but it is improved as he was actually able to sleep in the bed for first time last night. The patient has been afebrile, blood pressure has been in good range, and the patient did not voice any other concerns at this time. REVIEW OF SYSTEMS: The rest of the review of systems negative. MEDICATIONS: Medications have been reviewed. OBJECTIVE: GENERAL: The patient is a 62-year-old male who is awake, alert, and oriented to person, time, place, situation. He is verbal, conversational. He does not appear to be in any acute distress. VITAL SIGNS: Temperature is 98.0, pulse 91, respirations 17, blood pressure is 122/84, oxygen saturation is 98% on room air. SKIN: Warm and dry. No rash. He is not diaphoretic. HEENT: Pupils equal, round and reactive to light and accommodation. Conjunctivae are pink. There is no evidence of JVP. CARDIOVASCULAR: Heart is regular. No rub. CHEST: Diminished, symmetrical, bilateral basal crackles. ABDOMEN: Obese, nontender. EXTREMITIES: Without clubbing, cyanosis. The patient still has +2 bilateral lower extremity pitting edema, right is greater than the left. PSYCHIATRIC: Appropriate affect, pleasant mood. DIAGNOSTICS: Lab values are as follows - Hematology obtained on 12/21/2017; WBC is 13.3, hemoglobin is 14.6, hematocrit is 44.3, platelet count is 237,000. Chemistry obtained on 12/24/2017; sodium is 145, potassium 3.6, chloride is 103, carbon dioxide 30, BUN 25, creatinine is 1.16, glucose 89, calcium is 9.2, magnesium is 2.4. IMPRESSION AND PLAN: 1. ACUTE ON CHRONIC SYSTOLIC AND DIASTOLIC CONGESTIVE HEART FAILURE. The patient's EF never recovered, he still remains at 35%. The patient will be transferred to [facility] for AICD. Do appreciate Dr. Mendez's help with this. The has responded beautifully to IV furosemide at this point in time. The patient is about 5 liters negative. The patient has a great response to oral torsemide as well. 2. MODERATE TO SEVERE PULMONARY HYPERTENSION. Management as per #1. 3. HISTORY OF COR PULMONALE. 4. CHRONIC ATRIAL FIBRILLATION. The patient was actually bradycardic for a brief period of time. His isaias agents were decreased in half. Continue Xarelto. 5. MORBID OBESITY. The patient has been counseled. 6. HYPERTENSION. The patient's blood pressure has been slightly elevated, however, this completely resolved. 7. HISTORY OF GOUT. The patient feels he may be in a flare. Will give a brief course of steroids as well as colchicine. Monitor his creatinine. 8. BPH. Continue Flomax. 9. DEPRESSION. Continue home medication. CODE STATUS: The patient is a full code. DISPOSITION: Depending on the patient's symptomatology and diagnostic findings will reevaluate in the a.m. TIME SPENT: On this follow up, including assessment and plan, physical examination, patient education, review of records is 25 minutes. DICTATING PHYSICIAN: KARLA SNYDER NP [id number] [id number] PHY#: [id number] ID: [id number] JOB#: [id number] ACCT: [id number] cc: > MTDD
--- NOTE | 2017-12-24 17:01 | TRANSFER SUMMARY E ---
Transfer Summary NAME: JANICE LION : 1955 AGE: 62Y ADMITTED: 12/21/2017 TRANSFERRED: 12/24/2017 RECEIVING FACILITY: [facility]. RECEIVING PHYSICIAN: Sonya Howe M.D. with [facility] Cardiology Service. CODE STATUS: Full code. PRIMARY CARE PROVIDER: [facility]. CERTIFIED BREASTFEEDING EDUCATOR: Jany Mendez M.D. REASON FOR TRANSFER: 1. Acute on chronic systolic and diastolic congestive heart failure with an EF of 35%. 2. Moderate to severe pulmonary hypertension. 3. History of cor pulmonale. 4. Chronic atrial fibrillation. 5. Morbid obesity. 6. Hypertension. 7. History of gout. 8. Benign prostatic hyperplasia. 9. Depression. CURRENT MEDICATIONS: 1. Xarelto 20 mg p.o. q.a.m. 2. Apresoline 50 mg p.o. q.8 hours. 3. Cozaar 100 mg p.o. daily. 4. Toprol XL 50 mg p.o. daily. 5. Aldactone 25 mg p.o. q.a.m. 6. Prozac 40 mg p.o. q.a.m. 7. Neurontin 300 mg p.o. q.a.m. 8. Lasix 60 mg IV q.12 hours. 9. Potassium chloride 20 mEq p.o. daily. 10. Prednisone 20 mg p.o. b.i.d., currently on day 1 of 3 for gout. 11. Colchicine 0.6 mg p.o. daily. 12. Multivitamin 1 tablet p.o. daily. 13. Flomax 0.4 mg p.o. q.a.m. 14. Flexeril 10 mg p.o. t.i.d. p.r.n. 15. Phenergan 25 mg p.o. q.4 hours p.r.n. ACTIVITY: As tolerated. DIET: Heart healthy. CONDITION: Fair. DIAGNOSTICS: Lab values are as follows - Hematology obtained on 12/21/2017; WBC is 13.3, hemoglobin is 14.6, hematocrit is 44.3, platelet count is 237,000. Chemistry obtained on 12/24/2017; sodium is 145, potassium 2.9, chloride is 103, carbon dioxide 30, BUN 25, creatinine is 1.16, glucose 89, calcium is 9.2, magnesium is 2.4. Troponin is 0.017. Bilirubin is 1.7, AST 28, ALT 23, alk-phos 103. BNP is 9640. Total protein 6.6, albumin 3.9. Chest x-ray obtained on 12/21/2017 reveals findings consistent with CHF. Echocardiogram obtained on 12/21/2017 reveals a left ventricular ejection fraction of 35% with normal wall thickness with RVSP of 80, with an RA mean of 15-20, with moderate global hypokinesis of the left ventricle with severely dilated left atrium, with moderate to severe mitral regurgitation. EKG obtained on 12/21/2017 reveals atrial fibrillation with an incomplete left bundle branch block. PHYSICAL EXAMINATION: GENERAL: On examination the patient is a well-developed, obese, 62-year-old male who is awake, alert. He is oriented to person, place, time, and situation. He is verbal, conversational. He does not appear to be distressed. VITAL SIGNS: Temperature is 98.0, pulse 71, respirations 24, blood pressure is 122/84, oxygen saturation is 98% on room air. SKIN: Warm and dry. No rash. He is not diaphoretic. HEENT: Pupils equal, round, reactive to light and accommodation. Conjunctivae are pink. The patient appears to have JVP at the right clavicle. CARDIOVASCULAR: Heart is regular. CHEST: The patient does have bilateral basal crackles, symmetrical, unlabored at this time. ABDOMEN: Obese, soft. EXTREMITIES: No clubbing or cyanosis. The patient does have bilateral lower extremity pitting edema, +2 on the right and +1 on the left. PSYCHIATRIC: Appropriate affect, pleasant mood. HISTORY OF PRESENT ILLNESS: The patient is a 62-year-old male with a past medical history of previous admissions for cor pulmonale. The patient presented to the emergency department with a chief complaint of progressive shortness of breath. The patient's last echocardiogram in March of this year revealed an EF of 35%. The patient has been followed by the [facility] and has managed fairly well and has not had an admission since that time. The patient is anticoagulated with Xarelto due to his atrial fibrillation. The patient came to the emergency department due to ever progressing difficulty breathing as well as edema. The patient stated that it has gotten to the point that he was unable to lie down and sleep. The patient also had worsening lower extremity edema as well. The patient stated that about 2 [facility] to Lasix. He was taking torsemide 100 mg, however, this was transition over to furosemide 120 mg instead. However, he did not have the same diuretic effect. The patient is followed by Dr. Mendez through [facility] for his [facility]ology visits and has had no other change in his medications. The patient did have a BNP of 4500 earlier this year, however, his BNP is currently 9640 and he was referred to the hospitalist for admission and management. HOSPITAL COURSE: The patient was admitted to a telemetry unit. The patient was diuresed nicely and at the time of this dictation is over 5 liters negative. The patient has had significant improvement of his symptoms and is actually no longer requiring O2. The patient was able to lie in the bed at an angle for a brief period of time, however, he did not tolerate this for a long period of time. The patient's repeat echo once again showed an EF of 35%, therefore, showing no improvement of the patient's ejection fraction in spite of compliance with his home medication regimen. The patient has been seen and evaluated by Dr. Mendez who has made arrangements for the patient to be transferred to [facility] for further evaluation for AICD placement and possible ischemic evaluation. The patient is in agreeance with this plan. TRANSFER PLAN: The patient will be received to the services of Dr. Howe of [facility] [place] at [facility]. TIME SPENT: On arranging this transfer, including assessment and plan, physical examination, patient education, review of records, specialty collaboration is 45 minutes. DICTATING PHYSICIAN: KARLA SNYDER NP [id number] PHY#: [id number] ID: [id number] JOB#: [id number] ACCT: [id number] cc:KARLA SNYDER NP >
--- NOTE | 2017-12-24 19:08 | Progress Note ---
Provider Note Provider Note: CARDIOLOGY PROGRESS NOTES by Dr. Jany Mendez on 12/24/2017. SUBJECTIVE: The patient has no further leg cramps. He feels much improved but still has orthopnea. He has dyspnea with mild exertion but no dyspnea at rest. His leg edema is better but still has leg edema which is 2-, bilaterally. There is no chest pain or discomfort. There is no PND. There is no bleeding on Xarelto. There is no TIA CVA symptoms. There is no ventricular arrhythmias seen. PHYSICAL EXAMINATION: The patient is morbidly obese. He is well-groomed. At present is sitting up in a chair with no distress. Selected Entries 12/24/17 08:26 Temperature 98.0 F Temperature Oral Source Pulse Rate 71 Respiratory 24 H Rate Blood Pressure 122/84 Blood Pressure 96 Mean BP Location Left Arm BP Position Sitting O2 Sat by Pulse 98 Oximetry Oxygen Delivery Room Air Method HEAD: Is atraumatic and normocephalic. EYES: Pupils are equal round regular reactive to light accommodation. Extraocular movements are normal. There is no clinical pallor. There is no scleral icterus. EARS: External auditory canals are clear. Tympanic membranes are intact. There is no lesions on the pinna. NOSE: There is no deviated nasal septum. There is no inflammation of the nasal mucous membrane. MOUTH: Mucous membranes of mouth are moist tongue is moist there is no ulcers there is no bleeding from the gums. THROAT: There is no redness of the oropharynx. There is no exudates in the throat. SKIN: There is no skin lesions or skin rashes. There is no petechia or ecchymosis. NECK: Is supple. There is mild JVD present. Carotids are equal there is no bruits. There is no lymphadenopathy. There is no goiter. Trachea central. There is no accessory muscles of respiration in use. LUNGS: There is a few bibasilar rales of CHF. Otherwise the rest of the lungs are clear. There is no rhonchi or wheezing. HEART S1-S2 is heard there is no S3 gallop there is no S4 gallop S1 is of variable intensity. There is a murmur of mitral regurgitation tricuspid regurgitation present. There is no definite murmur of aortic stenosis or aortic regurgitation heard. There is no rub. ABDOMEN: Is morbidly obese. There is no hepatosplenomegaly. Bowel sounds are well heard. There is no tender areas of masses. EXTREMITIES: Femorals are deep. Femorals are diminished. There is no femoral bruits. Leg pulses are difficult to palpate due to edema, and are diminished. There is 2 edema bilaterally. There is no DVT or cellulitis. There is no calf tenderness. There is no sinus or clubbing. Capillary refill is normal. FIXING CARPENTER: The patient is conscious awake alert oriented x3 with no focal deficits. PSYCHIATRIC: The patient judgment insight are intact his affect is terrell 12/24/17 05:50 Sodium 145.2 H Potassium 3.9 Chloride 103 Carbon Dioxide 30 Anion Gap 12 BUN 25 H Creatinine 1.16 Est GFR (Non-Af Amer) > 60 Glucose 89 Calcium 9.2 Magnesium 2.4 H The patient's 24-hour intake is 768 mL, and his 24-hour output is 2410 mL. IMPRESSION/RECOMMENDATION: 1. Acute on chronic biventricular systolic failure.] Acute on chronic right ventricular and left ventricular systolic heart failure. Note that the patient' s heart rate now is 70 bpm, and hence he is not bradycardic. Continue beta- florencia. The patient still has significant right heart failure greater than left heart failure, and hence continue IV Lasix and his ARB. Continue his beta- florencia. Continue IV Lasix. 3. Cardiomyopathy: The patient's ejection fraction has not changed. We will recommend transfer the patient to tertiary care center for placement of AICD, and also referral to pulmonary hypertension clinic in view of the patient's severe pulmonary hypertension.. 4. Hypertension: Note blood pressure is now well controlled. Continue his ARB , and continue his beta-florencia, and continue hydralazine. 5. Severe pulmonary hypertension: This is secondary to the patient's cardiomyopathy and uncontrolled hypertension, and possibly secondary to sleep apnea, which is not being treated. I have placed the patient empirically on a BiPAP at night. Would refer the patient for an AICD placement, and to pulmonary hypertension clinic in [facility] in [place]. 6. Symptoms suggestive of sleep apnea. Would empirically treat the patient with BiPAP at night. Later would recommend that the patient have a sleep study as an outpatient. 7. History of gout: Continue colchicine. 8. Morbid Obesity: This can be addressed later when the patient is compensated , with diet and exercise. Also would consider gastric bypass surgery. 9. Hypokalemia: This is resolved. The patient's potassium is now normal. Note his medications have been reviewed. Discussed the management plan with the attending physician on the case. Discussed the case with cardiology specialist is [facility] cardiology, and arrangements made for transfer the patient to [facility] For placement of AICD, and referral to the pulmonary hypertension clinic. 40 minutes spent on this patient, with more than 50% of time spent in direct patient care. Medical decision making is of high complexity. Will sign off the case and follow the patient as an outpatient after he is discharged from [facility]
[2017-12-25 05:21] LABS: HEMATOCRIT 43.7 % (37.9-51.0); HEMOGLOBIN 14.4 g/dL (13.5-17.0); MEAN CORPUSCULAR HEMOGLOBIN 25.9 pg (27.0-33.4); MEAN CORPUSCULAR VOLUME 79 fl (80-97); PLATELET COUNT 254 10^3/uL (150-450); RED BLOOD COUNT 5.56 10^6/uL (4.35-5.55); RED CELL DISTRIBUTION WIDTH 17.9 % (11.5-14.0); WHITE BLOOD COUNT 16.1 10^3/uL (4.0-10.5)
[2017-12-25 05:45] LABS: ANION GAP 14 (5-19); BLOOD UREA NITROGEN 29 mg/dL (7-20); CALCIUM 9.3 mg/dL (8.4-10.2); CARBON DIOXIDE 29 mmol/L (22-30); CHLORIDE 101 mmol/L (98-107); GLUCOSE 100 mg/dL (75-110); POTASSIUM 4.5 mmol/L (3.6-5.0); SODIUM 143.9 mmol/L (137-145)
[2017-12-25] MEDS: HYDRALAZINE HCL 25 MG TABLET PO SCH (05:58)
[2017-12-25] MEDS: FUROSEMIDE INJ/PF 100 MG/10 ML SDV IV SCH ×2 (05:59→17:46)
[2017-12-25] MEDS: CYCLOBENZAPRINE HCL 10 MG TABLET PO PRN (06:01)
[2017-12-25] MEDS: RIVAROXABAN 10 MG TABLET PO SCH (09:04)
[2017-12-25] MEDS: MULTIVITAMIN TABLET PO SCH (09:10)
[2017-12-25] MEDS: TAMSULOSIN HCL 0.4 MG CAP.SR.24H PO SCH (09:10)
[2017-12-25] MEDS: PREDNISONE 20 MG TABLET PO SCH ×2 (09:11→17:47)
[2017-12-25] MEDS: GABAPENTIN 300 MG CAPSULE PO SCH (09:11)
[2017-12-25] MEDS: POTASSIUM CHLORIDE 10 MEQ CAPSULE.ER PO SCH (09:11)
[2017-12-25] MEDS: FLUOXETINE HCL 20 MG CAPSULE PO SCH (09:11)
[2017-12-25] MEDS: SPIRONOLACTONE 25 MG TABLET PO SCH (09:12)
[2017-12-25] MEDS: COLCHICINE 0.6 MG TABLET PO SCH (09:13)
[2017-12-25] MEDS: LOSARTAN POTASSIUM 50 MG TABLET PO SCH (09:13)
[2017-12-25] MEDS: METOPROLOL SUCCINATE 50 MG TAB.SR.24H PO SCH (09:13)
[2017-12-25] MEDS: HYDRALAZINE HCL 50 MG TABLET PO SCH ×2 (13:31→22:02)
--- NOTE | 2017-12-25 15:48 | RADIOLOGY REPORT (SQ) ---
EXAM DESCRIPTION: CHEST 2 VIEWS COMPLETED DATE/TIME: 12/25/2017 3:28 pm REASON FOR STUDY: Dyspnea, leukocytosis COMPARISON: 12/21/2017. NUMBER OF VIEWS: Two view. TECHNIQUE: Frontal and lateral radiographic views of the chest acquired. LIMITATIONS: None. FINDINGS: LUNGS AND PLEURA: No opacities, masses or pneumothorax. No pleural effusion. MEDIASTINUM AND HILAR STRUCTURES: No masses. No contour abnormalities. HEART AND VASCULAR STRUCTURES: Heart enlarged without failure. Aorta normal for age. BONES: No acute findings. Degenerative changes in the spine. HARDWARE: None in the chest. OTHER: No other significant finding. IMPRESSION: CARDIAC ENLARGEMENT WITHOUT FAILURE. TECHNICAL DOCUMENTATION: JOB ID: [id number] [employer]- All Rights Reserved Reading location - IP/workstation name: [email or web address]
--- NOTE | 2017-12-25 16:55 | PDOC PROGRESS REPORT ---
Subjective Progress Note for:: 12/25/17 Subjective:: Doing better, breathing better. Orthopnea has markedly improved. No chest pain or palpitation, shortness of breath better. No fever or chills, no cough or hemoptysis. Lower extremity swellings have greatly improved. Reason For Visit: ACUTE ON CHRONIC CHF EXACERBATION Physical Exam Vital Signs: Temp Pulse Resp BP Pulse Ox 97.6 F 60 20 115/61 98 12/25/17 12:20 12/25/17 14:00 12/25/17 12:20 12/25/17 12:20 12/25/17 12:20 Intake & Output 12/24/17 12/25/17 12/26/17 06:59 06:59 06:59 Intake Total 1720 Output Total 2430 Balance -710 Weight 109.2 kg GENERAL: Well-developed, well-nourished, no acute distress HEENT: Normocephalic/atraumatic NECK supple, no JVD CARDIOVASCULAR: RRR, normal S1-S2 LUNGS: Few crackles bases bilaterally ABDOMEN: Soft, NT, NL bowel sounds EXTREMITIES: 1+ lower extremity edema, no clubbing or cyanosis NEUROLOGICAL: Alert, oriented x 3 x3, nonfocal Results Laboratory Results: 12/25/17 04:10 12/25/17 04:10 12/25/17 12/25/17 04:10 04:10 WBC 16.1 H RBC 5.56 H Hgb 14.4 Hct 43.7 MCV 79 L MCH 25.9 L MCHC 33.0 RDW 17.9 H Plt Count 254 Sodium 143.9 Potassium 4.5 Chloride 101 Carbon Dioxide 29 Anion Gap 14 BUN 29 H Creatinine 1.14 Est GFR ( Amer) > 60 Est GFR (Non-Af Amer) > 60 Glucose 100 Calcium 9.3 Magnesium 2.6 H 12/21/17 12/21/17 12/21/17 10:24 15:30 21:14 Troponin I 0.023 0.024 0.017 Impressions: Chest X-Ray 12/21/17 03:20 IMPRESSION: Poor visualization of the lung bases, cannot exclude component of basilar atelectasis or pneumonia. Consider two-view exam when feasible to better evaluate. Assessment & Plan - Diagnosis (1) Acute on chronic combined systolic and diastolic CHF (congestive heart failure) Is this a current diagnosis for this admission?: Yes (2) Pulmonary hypertension Is this a current diagnosis for this admission?: Yes (3) Cor pulmonale, chronic Is this a current diagnosis for this admission?: Yes (4) Hypertension Qualifiers: Hypertension type: essential hypertension Qualified Code(s): I10 - Essential (primary) hypertension Is this a current diagnosis for this admission?: Yes (5) Morbid obesity Is this a current diagnosis for this admission?: Yes (6) Leukocytosis Is this a current diagnosis for this admission?: Yes - Plan Summary Plan Summary: Patient awaiting transfer to [facility] for evaluation for AICD given severe cardiomyopathy that has not improved. We will continue management for now. As for leukocytosis, will check chest x-ray to ensure that there is no pneumonia. We will also check UA. Will hold off antibiotics at this time as patient has no fever.
[2017-12-25 17:43] LABS: APPEARANCE,URINE CLEAR; BILIRUBIN,URINE NEGATIVE (NEGATIVE); COLOR,URINE YELLOW; GLUCOSE, URINE NEGATIVE (NEGATIVE); KETONES,URINE NEGATIVE (NEGATIVE); LEUKOCYTE ESTERASE,URINE NEGATIVE (NEGATIVE); NITRITE,URINE NEGATIVE (NEGATIVE); PROTEIN,URINE NEGATIVE (NEGATIVE); URINE SPECIFIC GRAVITY 1.011; UROBILINOGEN,URINE NEGATIVE mg/dL (<2.0)
[2017-12-26] MEDS: HYDRALAZINE HCL 50 MG TABLET PO SCH ×2 (05:12→13:13)
[2017-12-26] MEDS: FUROSEMIDE INJ/PF 100 MG/10 ML SDV IV SCH (05:13)
[2017-12-26 05:47] LABS: ABSOLUTE BASOPHILS # (AUTO) 0.1 10^3/uL (0.0-0.2); ABSOLUTE LYMPHOCYTES (AUTO) 1.6 10^3/uL (0.5-4.7); ABSOLUTE MONOCYTES (AUTO) 0.9 10^3/uL (0.1-1.4); ABSOLUTE NEUT (AUTO) 11.6 10^3/uL (1.7-8.2); BASOPHILS % (AUTO) 0.6 % (0-2); EOSINOPHILS % (AUTO) 0.2 % (0-6); HEMATOCRIT 43.4 % (37.9-51.0); HEMOGLOBIN 14.4 g/dL (13.5-17.0); LYMPHOCYTES % (AUTO) 11.4 % (13-45); MEAN CORPUSCULAR HGB CONC 33.2 g/dL (32.0-36.0); MEAN CORPUSCULAR VOLUME 78 fl (80-97); MONOCYTES % (AUTO) 6.5 % (3-13); PLATELET COUNT 282 10^3/uL (150-450); RED BLOOD COUNT 5.53 10^6/uL (4.35-5.55); RED CELL DISTRIBUTION WIDTH 17.7 % (11.5-14.0); SEGMENTED NEUTROPHILS % (AUTO) 81.3 % (42-78); TOTAL CELLS COUNTED % (AUTO) 100 %; WHITE BLOOD COUNT 14.3 10^3/uL (4.0-10.5)
[2017-12-26 06:16] LABS: ANION GAP 11 (5-19); BLOOD UREA NITROGEN 29 mg/dL (7-20); CALCIUM 9.2 mg/dL (8.4-10.2); CARBON DIOXIDE 28 mmol/L (22-30); CHLORIDE 106 mmol/L (98-107); GLUCOSE 98 mg/dL (75-110); POTASSIUM 4.5 mmol/L (3.6-5.0); SODIUM 144.5 mmol/L (137-145)
[2017-12-26] MEDS: FLUOXETINE HCL 20 MG CAPSULE PO SCH (10:01)
[2017-12-26] MEDS: RIVAROXABAN 10 MG TABLET PO SCH ×2 (10:01→10:11)
[2017-12-26] MEDS: SPIRONOLACTONE 25 MG TABLET PO SCH (10:01)
[2017-12-26] MEDS: MULTIVITAMIN TABLET PO SCH (10:01)
[2017-12-26] MEDS: LOSARTAN POTASSIUM 50 MG TABLET PO SCH (10:01)
[2017-12-26] MEDS: TAMSULOSIN HCL 0.4 MG CAP.SR.24H PO SCH (10:01)
[2017-12-26] MEDS: GABAPENTIN 300 MG CAPSULE PO SCH (10:01)
[2017-12-26] MEDS: POTASSIUM CHLORIDE 10 MEQ CAPSULE.ER PO SCH (10:02)
[2017-12-26] MEDS: PREDNISONE 20 MG TABLET PO SCH (10:02)
[2017-12-26] MEDS: COLCHICINE 0.6 MG TABLET PO SCH (10:02)
[2017-12-26] MEDS ORDERED: ENOXAPARIN SODIUM INJ 150 MG/1 ML DISP.SYRIN SUBCUT SCH (11:00)
[2017-12-26] MEDS: METOPROLOL SUCCINATE 50 MG TAB.SR.24H PO SCH (13:08)
[2017-12-26 14:05] VITALS: BP 141/84
--- NOTE | 2017-12-26 15:20 | PDOC PROGRESS REPORT ---
Subjective Progress Note for:: 12/26/17 Subjective:: Doing okayr, breathing stable. Orthopnea has markedly improved. No chest pain or palpitation, shortness of breath generally better. No fever or chills, no cough or hemoptysis. Lower extremity swellings have greatly improved. Reason For Visit: ACUTE ON CHRONIC CHF EXACERBATION Physical Exam Vital Signs: Temp Pulse Resp BP Pulse Ox 97.7 F 67 20 141/84 H 100 12/26/17 12:00 12/26/17 13:57 12/26/17 12:00 12/26/17 12:00 12/26/17 12:00 Intake & Output 12/25/17 12/26/17 12/27/17 06:59 06:59 06:59 Intake Total 1720 1480 Output Total 2430 2930 Balance -710 -1450 Weight 109.2 kg 149.1 kg GENERAL: Well-developed, well-nourished, no acute distress HEENT: Normocephalic/atraumatic NECK supple, no JVD CARDIOVASCULAR: RRR, normal S1-S2 LUNGS: Few crackles bases bilaterally ABDOMEN: Soft, NT, NL bowel sounds EXTREMITIES: 1+ lower extremity edema, no clubbing or cyanosis NEUROLOGICAL: Alert, oriented x 3 x3, nonfocal Results Laboratory Results: 12/26/17 04:57 12/26/17 04:57 12/25/17 12/26/17 12/26/17 17:00 04:57 04:57 WBC 14.3 H RBC 5.53 Hgb 14.4 Hct 43.4 MCV 78 L MCH 26.0 L MCHC 33.2 RDW 17.7 H Plt Count 282 Seg Neutrophils % 81.3 H Lymphocytes % 11.4 L Monocytes % 6.5 Eosinophils % 0.2 Basophils % 0.6 Absolute Neutrophils 11.6 H Absolute Lymphocytes 1.6 Absolute Monocytes 0.9 Absolute Eosinophils 0.0 Absolute Basophils 0.1 Sodium 144.5 Potassium 4.5 Chloride 106 Carbon Dioxide 28 Anion Gap 11 BUN 29 H Creatinine 0.97 Est GFR ( Amer) > 60 Est GFR (Non-Af Amer) > 60 Glucose 98 Calcium 9.2 Urine Color YELLOW Urine Appearance CLEAR Urine pH 6.0 Ur Specific [place] 1.011 Urine Protein NEGATIVE Urine Glucose (UA) NEGATIVE Urine Ketones NEGATIVE Urine Blood NEGATIVE Urine Nitrite NEGATIVE Ur Leukocyte Esterase NEGATIVE Urine WBC (Auto) 0 12/21/17 12/21/17 12/21/17 10:24 15:30 21:14 Troponin I 0.023 0.024 0.017 Impressions: Chest X-Ray 12/25/17 00:00 IMPRESSION: CARDIAC ENLARGEMENT WITHOUT FAILURE. Assessment & Plan - Diagnosis (1) Acute on chronic combined systolic and diastolic CHF (congestive heart failure) Is this a current diagnosis for this admission?: Yes (2) Pulmonary hypertension Is this a current diagnosis for this admission?: Yes (3) Cor pulmonale, chronic Is this a current diagnosis for this admission?: Yes (4) Hypertension Qualifiers: Hypertension type: essential hypertension Qualified Code(s): I10 - Essential (primary) hypertension Is this a current diagnosis for this admission?: Yes (5) Morbid obesity Is this a current diagnosis for this admission?: Yes (6) Leukocytosis Is this a current diagnosis for this admission?: Yes - Plan Summary Plan Summary: Patient is awaiting transfer to [facility] for evaluation for AICD, given severe cardiomyopathy that has not improved with medical management over the past few months. We will continue medical management for now. As for leukocytosis, follow-up chest x-ray reveals no no infiltrate. Urinalysis is unremarkable. Suspect leukocytosis is reactive. Will continue to hold off antibiotics as patient is without fevers.
== END 2017-12-26 16:15 | disposition short-term general hospital (02) | DRG 293 ==
LOC: ER 02:45 → EH 04:18 → OBSVTOIN 04:53 → 5 06:00
PROVIDERS: ADMIT Internal Medicine; ATTEND Internal Medicine
PROC: 3E0F73Z Introduction of Anti-inflammatory into Respiratory Tract, Via Natural or Artificial Opening (ICD-10-PCS; principal; 2017-12-21)
DX: I11.0 Hypertensive heart disease with heart failure (principal); I50.43 Acute on chronic combined systolic (congestive) and diastolic (congestive) heart failure; I27.20 Pulmonary hypertension, unspecified; I48.2 Chronic atrial fibrillation; E66.01 Morbid (severe) obesity due to excess calories; M10.9 Gout, unspecified; N40.0 Benign prostatic hyperplasia without lower urinary tract symptoms; F32.9 Major depressive disorder, single episode, unspecified; I44.7 Left bundle-branch block, unspecified; R00.1 Bradycardia, unspecified; I42.9 Cardiomyopathy, unspecified; I08.1 Rheumatic disorders of both mitral and tricuspid valves; E87.6 Hypokalemia; I27.81 Cor pulmonale (chronic); Z60.2 Problems related to living alone; Z79.899 Other long term (current) drug therapy; Z95.810 Presence of automatic (implantable) cardiac defibrillator; Z83.6 Family history of other diseases of the respiratory system; Z82.3 Family history of stroke
CPT/HCPCS: 36415; 71045; 71046; 80048; 80053; 81001; 83735; 83880; 84484; 85025; 85027; 93005; 93010; 93306; 96374; 99285; J1940; J3490; J7512

== ENCOUNTER 2018-10-13 20:00 | Emergency (ER) | payer MEDICARE, MEDICAID ==
[2018-10-13] MEDS ORDERED: ASPIRIN 81 MG TABLET, CHEWABLE PO ONE (20:11)
--- NOTE | 2018-10-13 20:20 | ER Document Report ---
ED Medical Screen (RME) - General Chief Complaint: Chest Pain Stated Complaint: CHEST PAIN Time Seen by Provider: 10/13/18 20:09 Primary Care Provider: ALYSA MARIA MD [Primary Care Provider] - Follow up as needed Mode of Arrival: Wheelchair Information source: Patient Notes: 63-year-old very morbidly obese male presented to ED for constant jumping to the left side all day since 9 AM this morning. He does have a pacemaker defibrillator. He states he thinks it might be the defibrillator going off all day. He states he feels like he is got a palpitations in his heart but he does not have any pain to his chest. He states he is very short of breath with ambulation. He states he is not short of breath when he sitting still. He does have pain in his right toe that is infected. He states that is been infected for a while and has been to the primary doctor and they did would not do anything about it states it was okay. Patient is alert oriented respirations regular and unlabored. He does have a history of high blood pressure coronary artery disease fractured left leg and the pacemaker defibrillator. He states he does live alone does not smoke drink or do use any drugs. He states he has never smoked. I have greeted and performed a rapid initial assessment of this patient. A comprehensive ED assessment and evaluation of the patient, analysis of test results and completion of medical decision making process will be conducted by an additional ED providers. TRAVEL OUTSIDE OF THE [place] IN LAST 30 DAYS: No - Related Data Allergies/Adverse Reactions: No Known Allergies Allergy (Verified 08/15/16 16:00) Past Medical History - Past Medical History Cardiac Medical History: Reports: Hx Atrial Fibrillation - Chronic, Hx Congestive Heart Failure - Chronic systolic and diastolic, Hx Hypertension Pulmonary Medical History: Reports: Hx Pneumonia Renal/ Medical History: Reports: Hx Benign Prostatic Hyperplasia, Hx Kidney Stones. Denies: Hx Peritoneal Dialysis Musculoskeltal Medical History: Reports Hx Arthritis, Reports Hx Gout, Reports Hx Musculoskeletal Trauma Psychiatric Medical History: Reports: Hx Depression Traumatic Medical History: Reports: Hx Fractures Past Surgical History: Reports: Hx Herniorrhaphy - Ventral wall hernia repair, Hx Inguinal Hernia, Hx Orthopedic Surgery - ORIF left leg, Hx Tonsillectomy, Other - Multiple cardiac ablations Physical Exam - Vital signs Vitals: Temp Pulse Resp BP Pulse Ox 98.4 F 70 24 H 148/62 H 96 10/13/18 20:05 10/13/18 20:05 10/13/18 20:05 10/13/18 20:05 10/13/18 20:05 Course - Vital Signs Vital signs: Temp Pulse Resp BP Pulse Ox 98.4 F 70 24 H 148/62 H 96 10/13/18 20:05 10/13/18 20:05 10/13/18 20:05 10/13/18 20:05 10/13/18 20:05 Doctor's Discharge - Discharge Referrals: ALYSA MARIA MD [Primary Care Provider] - Follow up as needed
--- NOTE | 2018-10-13 20:47 | ER Document Report ---
ED Cardiac - General Chief Complaint: Chest Pain Stated Complaint: CHEST PAIN Time Seen by Provider: 10/13/18 20:09 Primary Care Provider: [facility] [Provider Group] - 10/15/18 Mode of Arrival: Wheelchair Notes: Patient is a 63-year-old male that comes emergency department for chief complaint of concerns about his pacemaker not working correctly. He states that since 9 AM this morning he has noticed persistent jerking in the left shoulder and arm specifically around the area of the AICD that he has, he states this was tolerable earlier but is much more noticeable now when he cannot get comfortable. He denies that it hurts, he states he does have some dyspnea on exertion but nothing particularly new, he also has old complaints about his right middle toe. Only new complaint is the pacemaker he denies fever/chills, nausea/vomiting, dizziness, or any other complaints. Past medical history includes CHF, hypertension, atrial fibrillation, and AICD placement at [facility], follow-up with local rejected items clerk Dr. Mendez. He denies history of [place], he does not have a history of diabetes. He is on Xarelto. TRAVEL OUTSIDE OF THE [place] IN LAST 30 DAYS: No - Related Data Allergies/Adverse Reactions: No Known Allergies Allergy (Verified 08/15/16 16:00) Past Medical History - General Information source: Patient - Social History Smoking Status: Never Smoker Chew tobacco use (# tins/day): No Frequency of alcohol use: None Drug Abuse: None Lives with: Family Family History: Reviewed & Not Pertinent Patient has suicidal ideation: No Patient has homicidal ideation: No - Past Medical History Cardiac Medical History: Reports: Hx Atrial Fibrillation - Chronic, Hx Congestive Heart Failure - Chronic systolic and diastolic, Hx Hypertension Pulmonary Medical History: Reports: Hx Pneumonia Renal/ Medical History: Reports: Hx Benign Prostatic Hyperplasia, Hx Kidney Stones. Denies: Hx Peritoneal Dialysis Musculoskeletal Medical History: Reports Hx Arthritis, Reports Hx Gout, Reports Hx Musculoskeletal Trauma Psychiatric Medical History: Reports: Hx Depression Traumatic Medical History: Reports: Hx Fractures Past Surgical History: Reports: Hx Cardiac Catheterization, Hx Herniorrhaphy - Ventral wall hernia repair, Hx Inguinal Hernia, Hx Orthopedic Surgery - ORIF left leg, Hx Tonsillectomy, Other - Multiple cardiac ablations Review of Systems - Review of Systems Constitutional: No symptoms reported EENT: No symptoms reported Cardiovascular: See HPI Respiratory: No symptoms reported Gastrointestinal: No symptoms reported Genitourinary: No symptoms reported Male Genitourinary: No symptoms reported Musculoskeletal: See HPI Skin: No symptoms reported Hematologic/Lymphatic: No symptoms reported Neurological/Psychological: No symptoms reported Physical Exam - Vital signs Vitals: Temp Pulse Resp BP Pulse Ox 98.4 F 70 24 H 148/62 H 96 10/13/18 20:05 10/13/18 20:05 10/13/18 20:05 10/13/18 20:05 10/13/18 20:05 - Notes Notes: GENERAL: Alert, interacts well. No acute distress. HEAD: Normocephalic, atraumatic. EYES: Pupils equal, round, and reactive to light. Extraocular movements intact. ENT: Oral mucosa moist, tongue midline. Oropharynx unremarkable. Airway patent. Nares patent, no nasal septal hematoma LUNGS: Clear to auscultation bilaterally, no wheezes, rales, or rhonchi. No respiratory distress. Patient has a muscle spasm of the chest over the left side extending towards the shoulder along the pectoralis muscle it is in sync with his heartbeat and appears to be paced. No tenderness over the pacemaker. HEART: Regular rate and rhythm. No murmur ABDOMEN: Soft, non-tender. Non-distended. Bowel sounds present in all 4 quadrants. GENITOURINARY: Deferred EXTREMITIES: No edema of the lower extremities. Right foot with a middle toe that is swollen, red, tender to the touch. Remaining foot appears unremarkable. BACK: no cervical, thoracic, lumbar midline tenderness. No saddle anesthesia, normal distal neurovascular exam. Moves all extremities in full range of motion. NEUROLOGICAL: Alert and oriented x3. Normal speech. Cranial nerves II through XII grossly intact. PSYCH: Normal affect, normal mood. SKIN: Warm, dry, normal turgor. No rashes or lesions noted. Course - Re-evaluation Re-evalutation: On initial evaluation patient clearly has muscles reacting to each pace, with each heartbeat patient has a reaction of the left pectoral and shoulder muscles. This is much more exaggerated when patient leans forward. Patient states it is frustrating but not painful. I did discuss with Dr. Pagan, I placed patient on pacer pads and we did attempt to reset this using a magnet, however the magnet had no effect. Concern for possible pacer lead abnormality pacing the chest wall instead of just the heart. No obvious abnormality with the wiring on x- ray. EKG showing paced rhythm, CBC, chemistry, troponin generally unremarkable. I called [facility], spoke with Dr. Veronica. He states patient has 3 leads in his pacemaker, he recommends that we call the tech and in the turn off the lead that is pacing his chest wall. He states that if there is any problem we can call him back, he states otherwise patient can follow-up with cardiology outpatient closely. I did call and speak with the ruling technician, [employer], they state they will come perform this for the patient. Fortunately the ruling technician was able to do this, she was able to turn off 1 of the leads and then patient had complete resolution of his symptoms. She states there appears to have been pacing that affected the phrenic nerve. Patient very satisfied, states he will follow-up by calling tomorrow with his rejected items clerk. Incidentally urine ordered in triage shows infection with positive nitrites, x-ray of the foot ordered in triage shows right middle toe bony deterioration suggesting osteomyelitis per x-ray. On exam patient has a swollen, erythematous toe, however he is not a diabetic, has no fever, no leukocytosis, and this has been going on without significant change for a while. Symptoms started a total of 9 months ago per patient. Patient states that he does not want to get this taken care of now, I did speak with Dr. Hawthorne general surgeon and he states patient can follow-up closely in the office for management of this. Patient states he absolutely will follow-up and he will not fail to do so. - Vital Signs Vital signs: Temp Pulse Resp BP Pulse Ox 98.6 F 89 18 152/72 H 96 10/14/18 01:00 10/14/18 01:00 10/14/18 01:00 10/14/18 01:00 10/14/18 01:00 - Laboratory Result Diagrams: 10/13/18 20:30 10/13/18 20:30 Laboratory results interpreted by me: 10/13/18 10/13/18 10/13/18 20:30 20:30 23:03 RDW 18.2 H Plt Count 145 L [place] % (Auto) 13.4 H BUN 23 H Creatinine 1.29 H Est GFR (MDRD) Non-Af 56 L Creatine Kinase 179 H Urine Nitrite POSITIVE H Ur Leukocyte Esterase TRACE H Discharge - Discharge Clinical Impression: Muscle spasm, Right foot pain Pacemaker complications Qualifiers: Encounter type: initial encounter Qualified Code(s): T82.9XXA - Unspecified complication of cardiac and vascular prosthetic device, implant and graft, initial encounter Condition: Stable Disposition: HOME, SELF-CARE Additional Instructions: 1 of your 3 leads for your pacemaker have been turned down because they were stimulating your phrenic nerve and causing your spasms. I spoke with Dr. Veronica at [facility] today, please call Monday to follow-up closely with your rejected items clerk for additional management of this. Your right middle toe has bony breakdown which is very concerning. This needs to be taken care of very soon, I spoke with Dr. Sims general surgeon, he asks that you be seen closely in the office, call Monday for your appointment. Return for any concerning symptoms including chest pain, passing out, spreading redness on your foot, fever, or any other concerning symptoms. Prescriptions: Cephalexin Monohydrate [Keflex 500 mg Capsule] 500 mg PO QID #28 capsule Referrals: [facility] [Provider Group] - 10/15/18
[2018-10-13 20:57] LABS: ABSOLUTE BASOPHILS # (AUTO) 0.1 10^3/uL (0.0-0.2); ABSOLUTE EOSINOPHILS # (AUTO) 0.4 10^3/uL (0.0-0.6); ABSOLUTE LYMPHOCYTES (AUTO) 1.7 10^3/uL (0.5-4.7); ABSOLUTE MONOCYTES (AUTO) 1.1 10^3/uL (0.1-1.4); ABSOLUTE NEUT (AUTO) 4.9 10^3/uL (1.7-8.2); BASOPHILS % (AUTO) 0.7 % (0-2); EOSINOPHILS % (AUTO) 5.3 % (0-6); HEMATOCRIT 40.5 % (37.9-51.0); HEMOGLOBIN 13.6 g/dL (13.5-17.0); LYMPHOCYTES % (AUTO) 20.6 % (13-45); MEAN CORPUSCULAR HEMOGLOBIN 27.4 pg (27.0-33.4); MEAN CORPUSCULAR HGB CONC 33.6 g/dL (32.0-36.0); MEAN CORPUSCULAR VOLUME 82 fl (80-97); MONOCYTES % (AUTO) 13.4 % (3-13); PLATELET COUNT 145 10^3/uL (150-450); RED BLOOD COUNT 4.96 10^6/uL (4.35-5.55); RED CELL DISTRIBUTION WIDTH 18.2 % (11.5-14.0); TOTAL CELLS COUNTED % (AUTO) 100 %; WHITE BLOOD COUNT 8.2 10^3/uL (4.0-10.5)
[2018-10-13 21:04] LABS: ALKALINE PHOSPHATASE 97 U/L (38-126); ANION GAP 10 (5-19); ASPARTATE AMINO TRANSFERASE 31 U/L (17-59); BILIRUBIN,DIRECT 0.3 mg/dL (0.0-0.4); BILIRUBIN,TOTAL 0.6 mg/dL (0.2-1.3); BLOOD UREA NITROGEN 23 mg/dL (7-20); CALCIUM 9.1 mg/dL (8.4-10.2); CARBON DIOXIDE 28 mmol/L (22-30); CHLORIDE 104 mmol/L (98-107); CREATINE KINASE 179 U/L (55-170); GLUCOSE 88 mg/dL (75-110); POTASSIUM 4.3 mmol/L (3.6-5.0); TOTAL PROTEIN 6.5 g/dL (6.3-8.2)
[2018-10-13 21:15] LABS: CREATINE KINASE MB 1.07 ng/mL (<4.55)
[2018-10-13 21:16] LABS: TROPONIN I < 0.012 ng/mL
--- NOTE | 2018-10-13 22:05 | RADIOLOGY REPORT (SQ) ---
EXAM DESCRIPTION: XR CHEST 1 VIEW COMPLETED DATE/TME: 10/13/2018 20:10 CLINICAL HISTORY: 63 years, Male, chest pain COMPARISON: 08/15/2016 chest NUMBER OF VIEWS: 1 TECHNIQUE: Portable chest LIMITATIONS: Artifact FINDINGS: Artifact limits the study. Cardiomegaly. The lung bases are not well seen due to artifact in soft tissues. As visualized the lungs are clear. Pacing device noted. No pneumothorax IMPRESSION: Limited study as above. Cardiomegaly. Lungs appear clear copyright 2010 [email or web address]- All Rights Reserved
--- NOTE | 2018-10-13 22:10 | RADIOLOGY REPORT (SQ) ---
EXAM DESCRIPTION: Right foot three views Completed date and time 10/13/18 9:19 PM CLINICAL HISTORY: 63 years ,Male infected toe COMPARISON: None. TECHNIQUE: RIGHT foot, Three view FINDINGS: Bony demineralization. Mild metatarsus primus varus and hallux valgus. There are large erosions along the head of the first metatarsal medially suggesting gout. Other etiology not entirely excluded. Small amount of erosive changes seen at the base of the first proximal phalanx. There are degenerative changes in the carpus. There is soft tissue swelling over the third digit. There is destruction of segments of the middle phalanx and the proximal aspect of the distal phalanx suggesting osteomyelitis. Nonspecific erosive change along the fifth proximal interphalangeal joint. No significant ankle effusion noted. IMPRESSION: Soft tissue swelling over the third digit with destruction of segments of the distal and middle phalanx suggesting osteomyelitis Large erosive changes in the first metatarsal head which may reflect gout. Other cause of erosion not excluded. Osteomyelitis thought less likely but not excluded Recommend correlation of findings with MRI
--- NOTE | 2018-10-13 22:37 | RADIOLOGY REPORT (SQ) ---
EXAM DESCRIPTION: XR CHEST 2 VIEWS COMPLETED DATE/TME: 10/13/2018 21:42 CLINICAL HISTORY: 63 years, Male, eval pacemaker leads COMPARISON: Prior chest x-ray from today's date NUMBER OF VIEWS: 2 TECHNIQUE: Frontal and lateral views of the chest LIMITATIONS: None. FINDINGS: Cardiomegaly. Left-sided pacing device. Osteopenia. Lungs are clear. No pneumothorax IMPRESSION: Cardiomegaly. Lungs are clear copyright 2011 [employer]- All Rights Reserved
[2018-10-13 23:23] LABS: APPEARANCE,URINE CLEAR; BILIRUBIN,URINE NEGATIVE (NEGATIVE); COLOR,URINE YELLOW; GLUCOSE, URINE NEGATIVE (NEGATIVE); KETONES,URINE NEGATIVE (NEGATIVE); LEUKOCYTE ESTERASE,URINE TRACE (NEGATIVE); NITRITE,URINE POSITIVE (NEGATIVE); PROTEIN,URINE NEGATIVE (NEGATIVE); URINE SPECIFIC GRAVITY 1.023; UROBILINOGEN,URINE NEGATIVE mg/dL (<2.0)
[2018-10-14] MEDS ORDERED: CEPHALEXIN 500 MG CAPSULE PO ONE (00:38)
[2018-10-14 01:12] VITALS: BP 152/72
--- NOTE | 2018-10-14 09:31 | EKG REPORT ---
SEVERITY:- ABNORMAL ECG - ATRIAL-SENSED VENTRICULAR-PACED COMPLEXES : Confirmed by: Jany Mendez MD 14-Oct-2018 09:29:52
== END 2018-10-14 01:12 | disposition home or self-care (01) ==
LOC: ER 20:00
DX: M62.838 Other muscle spasm (principal); M79.671 Pain in right foot; T82.9XXA Unspecified complication of cardiac and vascular prosthetic device, implant and graft, initial encounter; X58.XXXA Exposure to other specified factors, initial encounter; R07.9 Chest pain, unspecified; R06.00 Dyspnea, unspecified; I11.0 Hypertensive heart disease with heart failure; I50.9 Heart failure, unspecified; I48.91 Unspecified atrial fibrillation; Z95.0 Presence of cardiac pacemaker
CPT/HCPCS: 93005; 36415; 82553; 82550; 83690; 85025; 80053; 81001; 84484; 71046; 71045; 73630; 93010; A9270 ×2; 99285

== ENCOUNTER → 2018-12-11 | Outpatient (CLI) | payer MEDICARE, MEDICAID ==
--- NOTE | 2018-12-11 12:19 | RADIOLOGY REPORT (SQ) ---
EXAM DESCRIPTION: FOOT RIGHT COMPLETE COMPLETED DATE/TIME: 12/11/2018 11:11 am REASON FOR STUDY: OSTEOMYLITIS/GOUT COMPARISON: 10/13/2018 NUMBER OF VIEWS: Three views. TECHNIQUE: AP, lateral and oblique radiographic images acquired of the right foot. LIMITATIONS: None. FINDINGS: MINERALIZATION: Mild osteopenia. BONES: No significant interval change in the appearance of the destructive changes involving the mid dle and distal phalanx of the right third toe. Considerations for these findings again include osteo myelitis. The erosive changes and overhanging edges involving the head of the first metatarsal bone and base of the proximal phalanx of the great toe also are unchanged findings. Considerations for these finding s again include gout. Scattered erosive changes involving the bones of the midfoot, the bases of the second through the fif th metatarsal bones and base of the proximal phalanx second toe. Consideration for these findings in clude inflammatory arthritides, as well as other etiologies. JOINTS: Halllux valgus deformity at the first metatarsophalangeal joint and associated bunion. SOFT TISSUES: No soft tissue swelling. No foreign body. OTHER: No other significant finding. IMPRESSION: 1. No significant interval changes since the previous examination dated 10/13/2018. The constellation of findings at the first metatarsophalangeal joint suggest gout. Hallux valgus deform ity and associated bunion also noted. 2. The destructive segments involving the middle and distal phalanges of the right third toe are unc hanged. Considerations for these findings again include osteomyelitis. 3. Stable erosive changes involving the midfoot and base of the proximal phalanx, second toe. Consi deration for these findings include inflammatory arthritides, as well as other etiologies. TECHNICAL DOCUMENTATION: JOB ID: [id number]- All Rights Reserved Reading location - IP/workstation name: [email or web address]
== END ==
LOC: RAD 10:36
PROVIDERS: ATTEND Podiatrist Foot Surgery
DX: M10.9 Gout, unspecified (principal); M20.11 Hallux valgus (acquired), right foot; M21.611 Bunion of right foot

== ENCOUNTER 2019-09-04 07:08 | Emergency (ER) | payer MEDICARE, OTHER ==
[2019-09-04] MEDS ORDERED: PIPERACILLIN/TAZOBACTAM 4.5 GM VIAL IV ONE (07:15)
[2019-09-04] MEDS ORDERED: AZITHROMYCIN INJ 500 MG VIAL IV ONE (07:15)
[2019-09-04 08:13] LABS: ABSOLUTE BASOPHILS # (AUTO) 0.2 10^3/uL (0.0-0.2); ABSOLUTE EOSINOPHILS # (AUTO) 0.3 10^3/uL (0.0-0.6); ABSOLUTE LYMPHOCYTES (AUTO) 0.9 10^3/uL (0.5-4.7); ABSOLUTE MONOCYTES (AUTO) 0.9 10^3/uL (0.1-1.4); ABSOLUTE NEUT (AUTO) 12.8 10^3/uL (1.7-8.2); BASOPHILS % (AUTO) 1.1 % (0-2); EOSINOPHILS % (AUTO) 1.8 % (0-6); HEMATOCRIT 44.4 % (37.9-51.0); HEMOGLOBIN 15.3 g/dL (13.5-17.0); LYMPHOCYTES % (AUTO) 5.9 % (13-45); MEAN CORPUSCULAR HEMOGLOBIN 29.1 pg (27.0-33.4); MEAN CORPUSCULAR HGB CONC 34.4 g/dL (32.0-36.0); MEAN CORPUSCULAR VOLUME 84 fl (80-97); MONOCYTES % (AUTO) 5.8 % (3-13); PLATELET COUNT 175 10^3/uL (150-450); RED BLOOD COUNT 5.26 10^6/uL (4.35-5.55); SEGMENTED NEUTROPHILS % (AUTO) 85.4 % (42-78); TOTAL CELLS COUNTED % (AUTO) 100 %
[2019-09-04 08:18] LABS: VENOUS BLOOD BASE EXCESS 1.1 mmol/L; VENOUS BLOOD HCO3 25.8 mmol/L (20-32); VENOUS BLOOD PCO2 41.1 mmHg (35-63); VENOUS BLOOD PH 7.42 (7.30-7.42)
[2019-09-04] MEDS ORDERED: NORMAL SALINE 1000 ML 1,000 ML IV ONE (08:35)
[2019-09-04 08:37] LABS: ALBUMIN 4.4 g/dL (3.5-5.0); ALKALINE PHOSPHATASE 109 U/L (38-126); ANION GAP 10 (5-19); ASPARTATE AMINO TRANSFERASE 37 U/L (17-59); BILIRUBIN,DIRECT 0.1 mg/dL (0.0-0.4); BILIRUBIN,TOTAL 1.4 mg/dL (0.2-1.3); BLOOD UREA NITROGEN 17 mg/dL (7-20); CALCIUM 8.8 mg/dL (8.4-10.2); CARBON DIOXIDE 27 mmol/L (22-30); CHLORIDE 101 mmol/L (98-107); GLUCOSE 192 mg/dL (75-110); POTASSIUM 3.3 mmol/L (3.6-5.0); TOTAL PROTEIN 7.7 g/dL (6.3-8.2)
[2019-09-04 08:45] LABS: APPEARANCE,URINE CLEAR; BILIRUBIN,URINE NEGATIVE (NEGATIVE); COLOR,URINE YELLOW; GLUCOSE, URINE NEGATIVE (NEGATIVE); KETONES,URINE NEGATIVE (NEGATIVE); PROTEIN,URINE 30 mg/dL (NEGATIVE); UROBILINOGEN,URINE NEGATIVE mg/dL (<2.0)
--- NOTE | 2019-09-04 08:59 | RADIOLOGY REPORT (SQ) ---
EXAM DESCRIPTION: CHEST SINGLE VIEW IMAGES COMPLETED DATE/TIME: 09/04/2019 8:24 am REASON FOR STUDY: fever, cp, sob COMPARISON: 10/13/2018 EXAM PARAMETERS: NUMBER OF VIEWS: One view. TECHNIQUE: Single frontal radiographic view of the chest acquired. RADIATION DOSE: NA LIMITATIONS: None. FINDINGS: LUNGS AND PLEURA: Ill-defined bibasilar opacities. No pneumothorax. No large effusion. MEDIASTINUM AND HILAR STRUCTURES: No masses. Contour normal. HEART AND VASCULAR STRUCTURES: Enlarged, stable. BONES: No acute findings. HARDWARE: Left-sided cardiac pacer with leads overlying right atrium and right ventricle OTHER: No other significant finding. IMPRESSION: Hazy ill-defined bibasilar opacities, possibly atelectasis or infection. Stable enlarged cardiac silhouette TECHNICAL DOCUMENTATION: JOB ID: [id number] [employer]- All Rights Reserved Reading location - IP/workstation name: [email or web address]
[2019-09-04] MEDS ORDERED: NITROGLYCERIN/D5W 50 MG/250 ML RTUINJ IV PRN (09:25)
--- NOTE | 2019-09-04 13:16 | EKG REPORT ---
SEVERITY:- ABNORMAL ECG - SINUS RHYTHM LEFT BUNDLE BRANCH BLOCK : Confirmed by: Octavio Stark MD 04-Sep-2019 13:15:12
--- NOTE | 2019-09-04 13:39 | ER Document Report ---
ED Cardiac - General Chief Complaint: Chest Pain Stated Complaint: chest pain Time Seen by Provider: 09/04/19 07:15 Primary Care Provider: IAN MCCRAY MD [Primary Care Provider] - Follow up as needed Mode of Arrival: Medic Information source: Patient TRAVEL OUTSIDE OF THE [place] IN LAST 30 DAYS: No - HPI Notes: Patient comes in complaining of shortness of breath and chest pain. He states this started approximately 3 AM. He states the chest pain is been sharp and in the center of his chest he states it does radiate over to the left side of his chest. It also radiates to the left arm. He states it is worse with a big breath or movement and slightly better with rest. He states he is also been sweating. He denies any history of coronary artery disease but states he does have a history of congestive heart failure. He denies any known history of recent fever cough or cold symptoms. No known covert virus exposures. His symptoms initially included pain that was 9 out of 10. The pain was constant. In route the patient was treated with aspirin and nitroglycerin. - Related Data Allergies/Adverse Reactions: No Known Allergies Allergy (Verified 09/04/19 10:26) Past Medical History - General Information source: Patient - Social History Smoking Status: Never Smoker Frequency of alcohol use: None Drug Abuse: None Family History: Reviewed & Not Pertinent - Past Medical History Cardiac Medical History: Reports: Hx Atrial Fibrillation - Chronic, Hx Congestive Heart Failure - Chronic systolic and diastolic, Hx Hypertension Pulmonary Medical History: Reports: Hx Pneumonia Renal/ Medical History: Reports: Hx Benign Prostatic Hyperplasia, Hx Kidney Stones. Denies: Hx Peritoneal Dialysis Musculoskeletal Medical History: Reports Hx Arthritis, Reports Hx Gout, Reports Hx Musculoskeletal Trauma Psychiatric Medical History: Reports: Hx Depression Traumatic Medical History: Reports: Hx Fractures Past Surgical History: Reports: Hx Cardiac Catheterization, Hx Herniorrhaphy - Ventral wall hernia repair, Hx Inguinal Hernia, Hx Orthopedic Surgery - ORIF left leg, Hx Tonsillectomy, Other - Multiple cardiac ablations Review of Systems - Review of Systems Constitutional: denies: Chills, Fever Cardiovascular: Chest pain. denies: Palpitations Respiratory: Short of breath. denies: Cough -: Yes All other systems reviewed and negative Physical Exam - Vital signs Vitals: Pulse Ox 98 09/04/19 07:13 Interpretation: Normal - General General appearance: Alert, Anxious In distress: Mild - HEENT Head: Normocephalic, Atraumatic Eyes: Normal Pupils: PERRL - Respiratory Respiratory status: Respiratory distress - Mild, Tachypnea Chest status: Nontender Breath sounds: Decreased air movement Chest palpation: Normal - Cardiovascular Rhythm: Regular Heart sounds: Normal auscultation Murmur: No - Abdominal Inspection: Morbidly Obese Distension: No distension Bowel sounds: Normal Tenderness: Nontender Organomegaly: No organomegaly - Back Back: Normal, Nontender - Extremities General upper extremity: Normal inspection, Nontender, Normal color, Normal ROM, Normal temperature General lower extremity: Normal inspection, Nontender, Edema - 2+ bilaterally, Normal color, Normal ROM, Normal temperature. No: Barron's sign - Neurological Neuro grossly intact: Yes Cognition: Normal Orientation: AAOx4 Robin Coma Scale Eye Opening: Spontaneous Robin Coma Scale Verbal: Oriented [place] Coma Scale Motor: Obeys Commands Robin Coma Scale Total: 15 Speech: Normal Motor strength normal: LUE, RUE, LLE, RLE Sensory: Normal - Psychological Associated symptoms: Normal affect, Normal mood - Skin Skin Temperature: Warm Skin Moisture: Moist Skin Color: Normal Course - Re-evaluation Re-evalutation: 09/04/19 13:36 Patient presents with chest pain that started melanite with shortness of breath. He did arrive with a fever of 100.6 and some questionable opacities on x-ray. Therefore patient was treated with antibiotics. He also received Tylenol. He is now afebrile. He was also tested for COVID and this is negative. His pain does sound somewhat pleuritic. Patient also has an elevated troponin. It is mildly elevated at 2. His EKG was reviewed by both me and the it program engagement director, Dr. Stark. It is not believed that ischemic changes are present. However, patient appears to be in need of a heart catheterization which cannot be performed here. I have contacted [facility] who has accepted the patient in transport. He has been started on a nitro drip and his pain is come down from a 9 to a 5 to a 2. - Vital Signs Vital signs: Temp Pulse Resp BP Pulse Ox 98.4 F 92 21 H 133/71 H 100 09/04/19 09:56 09/04/19 07:38 09/04/19 13:16 09/04/19 13:16 09/04/19 13:16 - Laboratory Result Diagrams: 09/04/19 07:57 09/04/19 07:57 Laboratory results interpreted by me: 09/04/19 09/04/19 09/04/19 07:57 07:57 08:25 WBC 15.0 H RDW 16.0 H Lymph % (Auto) 5.9 L Absolute Neuts (auto) 12.8 H Seg Neutrophils % 85.4 H Potassium 3.3 L Glucose 192 H Total Bilirubin 1.4 H Urine Protein 30 H - Diagnostic Test Radiology reviewed: Image reviewed, Reports reviewed - EKG Interpretation by Me EKG shows normal: Sinus rhythm Rate: Normal - 92 Rhythm: NSR [place]/QRS: LBBB Critical Care Note - Critical Care Note Total time excluding time spent on procedures (mins): 50 Comments: Approximately 50 minutes of critical care time were spent on this patient with an N STEMI and fever. This time was spent reviewing old records. I spent doing multiple reassessments. It was spent talking with multiple consultants. It was spent reviewing imaging and laboratory values. Discharge - Discharge Clinical Impression: NSTEMI (non-ST elevated myocardial infarction), Morbid obesity Condition: Serious Disposition: [facility] Referrals: IAN MCCRAY MD [Primary Care Provider] - Follow up as needed
[2019-09-04 14:50] VITALS: BP 132/72
== END 2019-09-04 14:53 | disposition short-term general hospital (02) ==
LOC: ER 07:08
DX: I21.4 Non-ST elevation (NSTEMI) myocardial infarction (principal); I11.0 Hypertensive heart disease with heart failure; I50.42 Chronic combined systolic (congestive) and diastolic (congestive) heart failure; R07.9 Chest pain, unspecified; R06.02 Shortness of breath; R50.9 Fever, unspecified; E66.01 Morbid (severe) obesity due to excess calories; I44.7 Left bundle-branch block, unspecified; Z20.828 Contact with and (suspected) exposure to other viral communicable diseases; Z87.01 Personal history of pneumonia (recurrent)
CPT/HCPCS: 93005; 99291; 36415; 87040; 83605; 85025; 80053; 81001; 84484; 82803; 71045; 93010; U0003; J3490; J7030; J0456; J2543; C9803; 87635